=== PATIENT | male | born 1950 | race Caucasian/White ===

== ENCOUNTER 2020-09-15 16:25 | Inpatient (IN) | payer MEDICARE ==
[~2020-09-15 16:25] MED LIST: Iopamidol-370 76% 500 ML 1 ML ONE
[2020-09-15] MEDS ORDERED: Albuterol 200 PUFF (6.7GM INHALER) ONE (17:34)
[2020-09-15] MEDS ORDERED: Magnesium 2 GM/50 ML BAG (IN WATER) ONE (18:36)
--- NOTE | 2020-09-15 19:37 | RAD ---
CHEST 1 VIEW: Date: 09/15/2020 HISTORY: Chest pain. COMPARISON: None. FINDINGS: Heart size is enlarged. Perihilar and peripheral opacities throughout the lungs. AICD/pacer leads pro ject over the right atrium, right ventricle, and coronary sinus. IMPRESSION: Extensive air space opacities, which without prior examinations for review may reflect pulmonary raven a or multifocal pneumonia. POS: YENIFERH
[2020-09-15] MEDS ORDERED: Linezolid 600 MG in Premix Bag 1 BAG IVPB SCH (20:00)
[2020-09-15] MEDS ORDERED: Albuterol Sulfate 2.5 mg/3 ml Neb NEB PRN (20:32)
[2020-09-15 20:34] LABS: Base Excess-Venous 1.2 mmol/L (-2.0 to 3.0); Bicarbonate (HCO3v) 25.9 mmol/L (22.0-28.0); CO2 Tension (PvCO2) 40.9 mmHg (40.0-50.0); Calcium, Ionized 1.06 mmol/L (1.15-1.33); Chloride 100 mmol/L (98-107); Hemoglobin - Calc 13.6 g/dL (14.0-18.0); Potassium 4.2 mmol/L (3.5-5.1); Sodium 135 mmol/L (138-145); T. Carbon Dioxide 27.2 mmol/L (22.0-28.0); vO2 Saturation-calc 82.1 % (60.0-85.0)
[2020-09-15] MEDS ORDERED: Acetaminophen 325 MG TAB PO PRN (20:36)
[2020-09-15 20:45] LABS: ALT (SGPT) 31 U/L (8-55); AST (SGOT) 31 U/L (5-34); Albumin 3.5 g/dL (3.4-4.8); Alkaline Phosphatase 88 U/L (40-110); Anion Gap 13 mmol/L (10-20); BUN (Urea Nitrogen) 9 mg/dL (8.4-25.7); Bilirubin, Total 1.2 mg/dL (0.2-1.2); CK (CPK) 142 U/L (30-200); Calc. Creatinine Clearance 0 mL/min (70-130); Calcium 8.7 mg/dL (7.8-10.44); Carbon Dioxide 27 mmol/L (23-31); Chloride 98 mmol/L (98-107); Globulin 3.5 g/dL (2.4-3.5); Glucose 133 mg/dL (80-115); Potassium 4.1 mmol/L (3.5-5.1); Sodium 134 mmol/L (136-145); Troponin I 0.031 ng/mL (< 0.028)
[2020-09-15] MEDS ORDERED: Azithromycin 500 MG in Sodium Chloride 0.9% 250 ML 250 ML IVPB SCH (20:45)
[2020-09-15] MEDS ORDERED: Furosemide 40 MG/4 ML VIAL SLOW IVP SCH (20:45)
--- NOTE | 2020-09-15 20:54 | CT ---
CT ANGIO OF CHEST PERFORMED WITH INTRAVENOUS CONTRAST ENHANCEMENT WITH 3D RECONSTRUCTIONS: 09/15/20 HISTORY: Atrial fibrillation. Shortness of breath. Productive cough. There is extensive bilateral ground glass infiltrates. This has the appearance more of a multifocal p neumonia such as COVID. This would not be typical for pulmonary edema. No pleural effusions. Pulmonary arteries are fairly well opacified. No CT evidence for pulmonary embolus. Thoracic aorta is normal in caliber. Small gallstones are present. Right and left adrenal glands are normal. IMPRESSION: 1. Diffuse COVID pneumonia. 2. Small gallstones. 3. No CT evidence for pulmonary embolus. POS: BJ
[2020-09-15 22:26] LABS: Troponin I 0.089 ng/mL (< 0.028)
--- NOTE | 2020-09-15 22:29 | PDOC.BPN ---
- Brief Progress Note [id number] HP dictated
[2020-09-15 22:56] LABS: #Basophils 0.1 thou/uL (0.0-0.2); #Eosinphils 0.1 thou/uL (0.0-0.7); #Lymphocytes 0.4 thou/uL (1.20-3.40); #Monocytes 0.7 thou/uL (0.11-0.59); #Neutrophils 14.9 thou/uL (1.40-6.50); %Basophils 0.4 % (0.0-1.0); %Eosinophils 0.4 % (0.0-10.0); %Lymphocytes 2.6 % (21.0-51.0); %Monocytes 4.5 % (0.0-10.0); %Neutrophils 92.1 % (42.0-75.0); Hemoglobin 12.9 g/dL (14.0-18.0); Mean Corpuscular HGB CONC 32.7 g/dL (32.0-36.0); Mean Corpuscular Hemoglobin 29.4 pg (27.0-31.0); Mean Platelet Volume 10.3 fL (7.4-10.4); Platelet Count 182 thou/uL (130-400); RBC Distribution Width 14.9 % (11.5-14.5); Red Blood Cell (RBC) Count 4.38 mill/uL (4.70-6.10); White Blood Cell (WBC) Count 16.2 thou/uL (4.8-10.8)
[2020-09-16] MEDS ORDERED: Furosemide 40 MG/4 ML VIAL ONE (00:08)
--- NOTE | 2020-09-16 00:17 | HP ---
CHIEF COMPLAINT: Shortness of breath and chest discomfort. HISTORY OF PRESENT ILLNESS: Mr. Espinosa is a 70-year-old male with past medical history of congestive heart failure, AICD, atrial fibrillation, COPD, emphysema, hypertension, hyperlipidemia, coronary artery bypass graft surgery, cardiac ablations, PTSD, among others, presents to the emergency room with shortness of breath, cough, and persistent? pneumonia. Two weeks ago, patient developed chest discomfort and intermittently productive cough. He was prescribed Augmentin and doxycycline, which he took as presented with a brief improvement of symptoms. Yesterday, the patient returned to the outpatient clinic and was just prescribed levofloxacin. He received COVID screens at each of these visits, all of them has been negative. He states he uses 2 L/minute nasal cannula at home as needed. He presents today with chills, worsening cough and shortness of breath. Also, the patient describes subjective fever. On physical exam, patient is tachypneic, short of breath with any minimal exertion. Lab work including chest x-ray showed extensive airspace disease, which would be pulmonary edema versus multifocal pneumonia. The patient's BNP is 193. Sodium 134, potassium 4.1, BUN is 9, creatinine 0.7. Septic workup done in the ED. The patient was started on IV antibiotics. The patient is being admitted to the hospital for further management. PAST MEDICAL HISTORY: As mentioned above in the history of present illness. PAST SURGICAL HISTORY: 1. Cardiac bypass surgery. 2. Tonsillectomy. 3. Varicocele. 4. ICD. 5. Cardiac ablations. 6. Right knee surgery. PAST PSYCHIATRIC HISTORY: PTSD. SOCIAL HISTORY: Denies smoking, alcohol drinking, or drug abuse. Lives at home with family. ALLERGIES: ALLERGIC TO KEFLEX, UNCONFIRMED. CURRENT MEDICATIONS: See home medication reconciliation form for updated medications. The patient's medications include: 1. Xarelto. 2. Aspirin. REVIEW OF SYSTEMS: Review of 14 systems negative except what is mentioned in the history of present illness. PHYSICAL EXAMINATION: GENERAL: The patient is awake, alert, in moderate respiratory distress, orthopneic. VITAL SIGNS: Blood pressure is 146/69, pulse is 78, respiratory rate is 18, temperature 98.7, oxygen saturation is 96% on 4 L/minute nasal cannula. HEENT: Normocephalic, atraumatic. NECK: Supple. CHEST: Coarse bilateral breath sounds. Respirations are unlabored. HEART: S1, S2, distant heart sounds. ABDOMEN: Soft, nontender. Bowel sounds present. NEUROLOGIC: Awake, alert, oriented. No focal deficits. PSYCH: Unable to assess. EXTREMITIES: No clubbing or cyanosis. LABORATORY DATA: As mentioned above in the history of present illness. Chest x-ray as mentioned above in the history of present illness. ASSESSMENT AND PLAN: 1. Acute on chronic hypoxic respiratory failure. 2. Chronic obstructive pulmonary disease with? exacerbation. 3. Pneumonia, failed outpatient therapy? 4. Acute on chronic congestive heart failure? 5. Coronary artery disease. 6. Automatic implantable cardioverter defibrillator. PLAN: 1. Admit. 2. Tele monitor. 3. Oxygen to keep saturation more than 92%. 4. IV antibiotics. 5. Bronchodilators scheduled and as needed. 6. IV steroids. 7. We will give the patient IV Lasix tonight, reassess in a.m. Cannot rule out worsening of his underlying congestive heart failure/pulmonary edema, differential diagnosis pneumonia versus CHF exacerbation. 8. Reconcile home medications. 9. DVT prophylaxis as appropriate/continue home anticoagulation. 10. Expected length of stay, 2 midnights or more. Job ID: [id number]
[2020-09-16] MEDS: methylPREDNISolone Sod Succ 40 MG VIAL IVP SCH ×5 (00:45→22:38)
[2020-09-16] MEDS ORDERED: methylPREDNISolone Sod Succ 40 MG VIAL ONE (00:49)
[2020-09-16 00:54] LABS: Troponin I 0.099 ng/mL (< 0.028)
[2020-09-16] MEDS: Albuterol Sulfate 2.5 mg/3 ml Neb NEB SCH ×4 (01:21→10:13)
[2020-09-16] MEDS ORDERED: Albuterol Sulfate 2.5 mg/3 ml Neb ONE (01:22)
[2020-09-16] MEDS ORDERED: HYDROcodone/Acetaminophen 10/325 mg Tablet PO PRN (03:44)
[2020-09-16 03:50] VITALS: BMI 38.5
[2020-09-16 04:10] LABS: #Lymphocytes 0.4 thou/uL (1.20-3.40); #Monocytes 0.2 thou/uL (0.11-0.59); #Neutrophils 11.9 thou/uL (1.40-6.50); %Lymphocytes 3.2 % (21.0-51.0); %Monocytes 1.3 % (0.0-10.0); %Neutrophils 95.6 % (42.0-75.0); Hemoglobin 13.7 g/dL (14.0-18.0); Mean Corpuscular HGB CONC 32.6 g/dL (32.0-36.0); Mean Corpuscular Hemoglobin 29.5 pg (27.0-31.0); Mean Corpuscular Volume 90.4 fL (78.0-98.0); Mean Platelet Volume 9.7 fL (7.4-10.4); Platelet Count 191 thou/uL (130-400); RBC Distribution Width 14.8 % (11.5-14.5); Red Blood Cell (RBC) Count 4.64 mill/uL (4.70-6.10); White Blood Cell (WBC) Count 12.4 thou/uL (4.8-10.8)
[2020-09-16 04:46] LABS: Anion Gap 15 mmol/L (10-20); BUN (Urea Nitrogen) 9 mg/dL (8.4-25.7); Calc. Creatinine Clearance 155 mL/min (70-130); Calcium 9.2 mg/dL (7.8-10.44); Carbon Dioxide 24 mmol/L (23-31); Chloride 100 mmol/L (98-107); Glucose 172 mg/dL (80-115); Potassium 3.4 mmol/L (3.5-5.1); Sodium 136 mmol/L (136-145)
[2020-09-16 06:36] LABS: SARS-CoV-2 MS2 Positive; SARS-CoV-2 N Gene Negative; SARS-CoV-2 S Gene Negative; SARS-CoV-2 by NAA Not Detected (NotDetected); SARS-CoV-2 orf1ab Negative
--- NOTE | 2020-09-16 07:57 | PDOC.HOSPP ---
- Subjective Encounter Date: 09/16/20 Encounter Time: 09:00 Subjective: Patient with some SOB, controlled on increased dose of O2 at 4.5L, uses 2-3 at home coty while sleeping. Also with chronic back pain on chronic opiates, needing home meds to be resumed. - Objective Vital Signs & Weight: Vital Signs (12 hours) Temp Pulse Resp Pulse Ox 09/16/20 04:00 94 L 09/16/20 03:20 98.0 F 09/16/20 01:26 77 20 96 Weight Weight 260 lb 7 oz I&O: 09/15/20 09/16/20 09/17/20 06:59 06:59 06:59 Output Total 700 Balance -700 Result Diagrams: 09/16/20 03:46 09/16/20 03:46 Hospitalist ROS - Review of Systems Constitutional: denies: fever, chills Respiratory: reports: cough, shortness of breath Cardiovascular: denies: chest pain, palpitations Gastrointestinal: denies: nausea, vomiting, abdominal pain Musculoskeletal: reports: back pain - Medication Medications: Active Medications Generic Name Dose Route Start Last Admin Trade Name Freq PRN Reason Stop Dose Admin Hydrocodone Bitart/Acetaminophen 1 tab 09/16/20 03:44 09/16/20 04:04 Hydrocodone/Acetaminophen 10/325 Mg Tablet PO 1 tab Q6H PRN Administration Moderate to Severe Pain (6-10) Albuterol Sulfate 2.5 mg 09/15/20 22:30 09/16/20 01:26 Albuterol Sulfate 2.5 Mg/3 Ml Neb NEB 2.5 mg [id number] ELIE Administration Methylprednisolone Sodium Succinate 40 mg 09/15/20 23:59 09/16/20 06:19 Methylprednisolone Sod Succ 40 Mg Vial IVP 40 mg Q6HR ELIE Administration - Exam General Appearance: NAD, awake alert ENT: moist mucosa Heart: RRR, no murmur, no gallops, no rubs Respiratory: normal chest expansion, no tachypnea Respiratory - other findings: expiratory wheezes and some decreased air flow diffusely Gastrointestinal: soft, non-tender, non-distended, normal bowel sounds Extremities: no edema Extremities - other findings: some wrinkles to extremity skin, no evidence significant overload Psychiatric: normal affect, normal behavior, A&O x 3 Hosp A/P (1) Multifocal pneumonia Code(s): J18.9 - PNEUMONIA, UNSPECIFIED ORGANISM Status: Acute (2) Acute and chronic respiratory failure with hypoxia Code(s): J96.21 - ACUTE AND CHRONIC RESPIRATORY FAILURE WITH HYPOXIA Status: Acute (3) COPD exacerbation Code(s): J44.1 - CHRONIC OBSTRUCTIVE PULMONARY DISEASE W (ACUTE) EXACERBATION Status: Acute (4) Acute on chronic congestive heart failure Code(s): I50.9 - HEART FAILURE, UNSPECIFIED Status: Acute (5) Chronic atrial fibrillation Code(s): I48.20 - CHRONIC ATRIAL FIBRILLATION, UNSPECIFIED Status: Chronic Plan: with pacemaker, on Xarelto (6) HTN (hypertension) Code(s): I10 - ESSENTIAL (PRIMARY) HYPERTENSION Status: Chronic (7) HLD (hyperlipidemia) Code(s): E78.5 - HYPERLIPIDEMIA, UNSPECIFIED Status: Chronic (8) CAD (coronary artery disease) Code(s): I25.10 - ATHSCL HEART DISEASE OF [place] CORONARY ARTERY W/O ANG PCTRS Status: Chronic Plan: hx of [place] - Plan Patient with infiltrated on CT consistent with multifocal pneumonia similar to Covid-19, but with multiple negative tests recently. Continue antibiotics, pulmonology consultation. IV Lasix switched back to home po dose and monitor fluid status. ECHO pending. DVT proph: on Xarelto GI proph: Pepcid
[2020-09-16] MEDS ORDERED: Potassium Chloride 20 MEQ TAB PO SCH (08:00)
[2020-09-16] MEDS ORDERED: Carvedilol 6.25 MG TAB PO SCH (09:00)
[2020-09-16] MEDS ORDERED: Non-Formulary Item 1 EACH (Carvedilol [Coreg] 12.5 MG Tab) PO SCH (09:00)
[2020-09-16] MEDS ORDERED: Non-Formulary Item 1 EACH (Omeprazole [Omeprazole] 20 MG Capsule.Dr) PO SCH (09:00)
[2020-09-16] MEDS ORDERED: Non-Formulary Item 1 EACH (Budesonide/Formoterol Fumarate [Budesonide-Formoterol 160-4.5] IH SCH (09:00)
[2020-09-16] MEDS ORDERED: Enoxaparin Sodium 40 MG/0.4 ML SYRINGE SC SCH (09:00)
[2020-09-16] MEDS ORDERED: Amiodarone 200 MG TAB PO SCH (09:00)
[2020-09-16] MEDS: Atorvastatin Calcium 40 MG TAB PO SCH (10:00)
[2020-09-16] MEDS: Aspirin 81 mg Enteric Coated Tablet PO SCH (10:00)
[2020-09-16] MEDS: Famotidine 20 MG TAB PO SCH ×2 (10:02→20:03)
[2020-09-16] MEDS ORDERED: Albuterol 200 PUFF (6.7GM INHALER) INH PRN (10:13)
[2020-09-16] MEDS: tiZANidine HCl 4 MG TAB PO SCH ×3 (10:23→20:03)
[2020-09-16] MEDS: Albuterol 200 PUFF (6.7GM INHALER) INH SCH ×4 (10:31→18:51)
--- NOTE | 2020-09-16 12:29 | CON ---
DATE OF CONSULTATION: 09/16/2020 REASON FOR CONSULTATION: Pneumonia. CONSULTING PHYSICIAN: Dr. Preston. HISTORY OF PRESENT ILLNESS: The patient is a 70-year-old male who presents to the hospital with a 4-week history of increasing shortness of breath. He said he has now had 5 negative COVID tests. 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 He has a history of a cardiomyopathy and has an ICD/pacemaker in place. He has had congestive heart failure in the past, but he said this does not feel like that. He is having no orthopnea or PND, but is having severe dyspnea with exertion. He has been ruled out for COVID for this admission. PAST MEDICAL HISTORY: 1. Cardiomyopathy. 2. Coronary artery bypass grafting surgery. 3. Tonsillectomy. 4. Cardiac ablation. 5. Right knee surgery. 6. Variceal repair. PAST SURGICAL HISTORY: See above. SOCIAL HISTORY: Nonsmoker, quit back in 1990 after a 20 pack-year history. Does not consume alcohol. Does not use illicit drugs. He was exposed to secondhand smoke with his . He has 4 hypoallergenic dogs at home, but no other pets. ALLERGIES: KEFLEX. MEDICATIONS: The patient was taking; 1. Amiodarone 200 mg daily. 2. Furosemide. 3. Omeprazole. 4. Sertraline. 5. Zolpidem. 6. Xarelto. 7. Potassium chloride. 8. Lipitor. 9. Zanaflex. 10. Coreg. 11. Budesonide. 12. Entresto. REVIEW OF SYSTEMS: Remarkable for dyspnea on exertion, cough, and congestion. PHYSICAL EXAMINATION: VITAL SIGNS: Temperature 98.0, pulse 77, respirations 20, O2 saturation 94% on 4 L, and blood pressure 134/66. HEENT: Unremarkable. NECK: No adenopathy or JVD. LUNGS: Diffuse crackles on expiration. CARDIAC: S1, S2 paced. ABDOMEN: Soft, nontender, and nondistended. EXTREMITIES: No clubbing or cyanosis. Chronic stasis changes in his legs. No significant edema. LABORATORY DATA: White blood cell count 12.4, hematocrit 42, and platelet count 191. Sodium 136, potassium 3.4, chloride 100, CO2 of 24, BUN 9, creatinine 0.7, and glucose 172. His BNP level was 193. His COVID test was negative. X-ray shows diffuse bilateral infiltrates. ASSESSMENT: This is a 70-year-old presenting with prolonged pneumonia symptoms, who has been COVID negative on multiple checks. Differential diagnosis would be an atypical presentation of heart failure, some other type of pneumonia, or amiodarone lung toxicity. I think the highest priority needs to be given to the possibility of amiodarone lung toxicity. PLAN: 1. Cardiology consultation. 2. Stop amiodarone. 3. Continue steroids. 4. Continue Levaquin. 5. Can discontinue respiratory isolation given that COVID test is negative. The above encompassed 50 minutes time, of that time, greater than 50% spent with the patient and/or the patient's unit in the hospital. Job ID: [id number]
[2020-09-16] MEDS ORDERED: Furosemide 40 MG/4 ML VIAL SLOW IVP SCH (14:00)
[2020-09-16] MEDS: HYDROcodone/Acetaminophen 10/325 mg Tablet PO PRN ×2 (14:32→22:37)
--- NOTE | 2020-09-16 15:50 | CON ---
DATE OF CONSULTATION: HISTORY OF PRESENT ILLNESS: The patient is an unfortunate 70-year-old gentleman, who presents with increasing dyspnea. The patient has a long history of coronary artery disease. He has a history of an ischemic cardiomyopathy. The patient underwent coronary artery bypass graft surgery in 1990 and 2002. The patient also has placement of an AICD. The patient has a history of ventricular tachycardia and atrial fibrillation. The patient was admitted a year ago with recurrent ventricular tachycardia. He was transferred to [place]. He underwent ablation for ventricular tachycardia. The patient was on Betapace. The patient was discharged on amiodarone. The patient was in usual state of health until a few weeks ago. He had noted progressive dyspnea and has noted low-grade fever. The patient had been treated for several weeks with IV antibiotics. He presented to emergency room markedly dyspneic. PAST MEDICAL HISTORY: 1. Coronary artery bypass graft surgery. 2. Peripheral vascular disease. 3. DVT. 4. COPD. 5. PTSD. 6. Dyslipidemia. 7. Coronary artery disease. 8. Atrial fibrillation. 9. Ventricular tachycardia. PAST SURGICAL HISTORY: Coronary artery bypass graft surgery, shoulder surgery, appendectomy, knee surgery, hand surgery. SOCIAL HISTORY: Former smoker. FAMILY HISTORY: Positive family history of heart disease. ALLERGIES: KEFLEX. MEDICATIONS: See nursing list. PHYSICAL EXAMINATION: GENERAL: Obese gentleman, in no acute distress. VITAL SIGNS: Blood pressure was 134/66. NECK: Showed no jugular venous distention. LUNGS: Coarse breath sounds with crackles in both places. HEART: Regular rate and rhythm. Normal S1 and S2. ABDOMEN: Distended. EXTREMITIES: Showed trace edema. VASCULAR: Radial pulse 2+. LABORATORY DATA: White blood cell count 12.4, hemoglobin 13.7, hematocrit 42.0, and platelets are 191. Sodium is 136, potassium 3.4, chloride 100, bicarb is 24, BUN 9, creatinine 0.76, and glucose 172. Troponin 0.099. EKG electronic ventricular pacemaker. Chest x-ray bilateral pulmonary infiltrates. IMPRESSION: 1. 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 2. History of ventricular tachycardia ablation. 3. History of atrial fibrillation. 4. History of coronary artery bypass graft surgery. 5. Ischemic cardiomyopathy. 6. Chronic obstructive pulmonary disease. 7. Peripheral vascular disease. 8. Diabetes mellitus. 9. Hypertension. PLAN: This unfortunate gentleman presents for progressive dyspnea. I expect this is secondary to amiodarone. His BNP is normal. The chest X-ray is not suggestive of congestive heart failure or pneumonia. I will discontinue his amiodarone. Job ID: [id number] [facility] CENTERSiena
[2020-09-16] MEDS: Rivaroxaban 10 MG TAB PO SCH (18:42)
[2020-09-16] MEDS: Mometasone 200 MCG/Formoterol 5 MCG 120 PUFF INHALER INH SCH (18:52)
[2020-09-16] MEDS: Carvedilol 6.25 MG TAB PO SCH (20:02)
[2020-09-16] MEDS ORDERED: Zolpidem Tartrate 5 MG TAB PO SCH ×2 (21:00→23:45)
[2020-09-16] MEDS ORDERED: Sacubitril 49 MG/Valsartan 51 MG TABLET PO SCH (21:00)
[2020-09-16] MEDS ORDERED: FLU VACC QS2020-21(65YR UP)/PF 240 MCG/0.7 ML SYRINGE IM ONE (21:00)
[2020-09-16] MEDS ORDERED: Non-Formulary Item 1 EACH (Rivaroxaban [Xarelto] 20 MG Tablet) PO SCH (21:00)
[2020-09-17] MEDS ORDERED: Midodrine HCl 5 MG TAB PO SCH (03:00)
[2020-09-17] MEDS: Albuterol 200 PUFF (6.7GM INHALER) INH SCH ×3 (03:06→11:46)
[2020-09-17] MEDS: methylPREDNISolone Sod Succ 40 MG VIAL IVP SCH ×3 (06:35→17:08)
[2020-09-17] MEDS: Mometasone 200 MCG/Formoterol 5 MCG 120 PUFF INHALER INH SCH ×2 (06:56→20:40)
[2020-09-17] MEDS: Aspirin 81 mg Enteric Coated Tablet PO SCH (08:06)
[2020-09-17] MEDS: Furosemide 20 MG TAB PO SCH (08:06)
[2020-09-17] MEDS: Potassium Chloride 20 MEQ TAB PO SCH (08:06)
[2020-09-17] MEDS: Famotidine 20 MG TAB PO SCH (08:07)
[2020-09-17] MEDS: Atorvastatin Calcium 40 MG TAB PO SCH (08:07)
[2020-09-17] MEDS: Carvedilol 6.25 MG TAB PO SCH ×2 (08:07→22:08)
--- NOTE | 2020-09-17 08:07 | PDOC.HOSPP ---
- Subjective Encounter Date: 09/17/20 Encounter Time: 09:30 Subjective: Patient did ok overnight but had some coughing and desats this morning so had to be put on high flow NC oxygen. No complaints currently. - Objective Vital Signs & Weight: Vital Signs (12 hours) Temp 09/17/20 04:00 97.9 F 09/17/20 00:00 98.2 F Weight Weight 260 lb 7 oz Most Recent Monitor Data Heart Rate from ECG 64 NIBP 120/71 NIBP BP-Mean 87 Respiration from ECG 22 SpO2 91 I&O: 09/16/20 09/17/20 09/18/20 06:59 06:59 06:59 Intake Total 1850 Output Total 700 2550 Balance -700 -700 Result Diagrams: 09/16/20 03:46 09/16/20 03:46 Hospitalist ROS - Review of Systems Constitutional: denies: fever, chills Respiratory: reports: cough, shortness of breath, SOB with excertion Cardiovascular: denies: chest pain, palpitations Gastrointestinal: denies: nausea, vomiting, abdominal pain - Medication Medications: Active Medications Generic Name Dose Route Start Last Admin Trade Name Freq PRN Reason Stop Dose Admin Hydrocodone Bitart/Acetaminophen 2 tab 09/16/20 09:44 09/16/20 22:37 Hydrocodone/Acetaminophen 10/325 Mg Tablet PO 2 tab Q6H PRN Administration Moderate to Severe Pain (6-10) Albuterol Sulfate 2 puff 09/16/20 10:30 09/17/20 06:35 Albuterol 200 Puff (6.7gm Inhaler) INH 2 puff [id number] ELIE Administration Aspirin 81 mg 09/16/20 09:00 09/17/20 08:06 Aspirin 81 Mg Enteric Coated Tablet PO 81 mg DAILY ELIE Administration Atorvastatin Calcium 40 mg 09/16/20 09:00 09/16/20 10:00 Atorvastatin Calcium 40 Mg Tab PO 40 mg DAILY ELIE Administration Carvedilol 6.25 mg 09/16/20 21:00 09/16/20 20:02 Carvedilol 6.25 Mg Tab PO 6.25 mg BID ELIE Administration Famotidine 20 mg 09/16/20 09:00 09/16/20 20:03 Famotidine 20 Mg Tab PO 20 mg BID ELIE Administration Levofloxacin 750 mg/ Device 150 mls @ 100 mls/hr 09/16/20 18:00 09/16/20 17:54 IVPB 150 mls Q24HR ELIE Administration Methylprednisolone Sodium Succinate 40 mg 09/15/20 23:59 09/17/20 06:35 Methylprednisolone Sod Succ 40 Mg Vial IVP 40 mg Q6HR ELIE Administration Mometasone Furoate/Formoterol Fumar 2 puff 09/16/20 18:30 09/17/20 06:56 Mometasone 200 Mcg/Formoterol 5 Mcg 120 Puff Inhaler INH 2 puff BID-RT ELIE Administration Pantoprazole Sodium 60 mg 09/16/20 09:00 09/16/20 10:03 Pantoprazole 40 Mg Tab PO 60 mg DAILY ELIE Administration Potassium Chloride 20 meq 09/17/20 09:00 09/17/20 08:06 Potassium Chloride 20 Meq Tab PO 20 meq DAILY ELIE Administration Rivaroxaban 20 mg 09/16/20 17:00 09/16/20 18:42 Rivaroxaban 10 Mg Tab PO 20 mg 1700 ELIE Administration Sacubitril/Valsartan 0.5 tab 09/16/20 21:00 09/16/20 22:38 Sacubitril 49 Mg/Valsartan 51 Mg Tablet PO 0.5 tab BID ELIE Administration Sertraline HCl 100 mg 09/16/20 09:00 09/16/20 10:03 Sertraline Hcl 100 Mg Tab PO 100 mg DAILY ELIE Administration Sodium Chloride 10 ml 09/16/20 21:00 09/16/20 20:04 Flush - Normal Saline 10 Ml Syringe IVF 10 ml Q12HR ELIE Administration Sodium Chloride 10 ml 09/16/20 09:45 09/16/20 22:38 Flush - Normal Saline 10 Ml Syringe IVF 10 ml PRN PRN Administration Saline Flush Tizanidine HCl 4 mg 09/16/20 09:00 09/16/20 20:03 Tizanidine Hcl 4 Mg Tab PO 4 mg TID ELIE Administration - Exam General Appearance: NAD, awake alert ENT: moist mucosa Heart: RRR, no murmur, no gallops, no rubs Respiratory: normal chest expansion, no tachypnea Respiratory - other findings: bilateral dry crackles, good air movement Gastrointestinal: soft, non-tender, non-distended, normal bowel sounds Psychiatric: normal affect, normal behavior, A&O x 3 Hosp A/P (1) Amiodarone pulmonary toxicity Code(s): J98.4 - OTHER DISORDERS OF LUNG; T46.2X5A - ADVERSE EFFECT OF OTHER ANTIDYSRHYTHMIC DRUGS, INIT ENCNTR Status: Acute (2) Multifocal pneumonia Code(s): J18.9 - PNEUMONIA, UNSPECIFIED ORGANISM Status: Acute (3) Acute and chronic respiratory failure with hypoxia Code(s): J96.21 - ACUTE AND CHRONIC RESPIRATORY FAILURE WITH HYPOXIA Status: Acute (4) COPD exacerbation Code(s): J44.1 - CHRONIC OBSTRUCTIVE PULMONARY DISEASE W (ACUTE) EXACERBATION Status: Acute (5) Acute on chronic congestive heart failure Code(s): I50.9 - HEART FAILURE, UNSPECIFIED Status: Acute (6) Chronic atrial fibrillation Code(s): I48.20 - CHRONIC ATRIAL FIBRILLATION, UNSPECIFIED Status: Chronic (7) HTN (hypertension) Code(s): I10 - ESSENTIAL (PRIMARY) HYPERTENSION Status: Chronic (8) HLD (hyperlipidemia) Code(s): E78.5 - HYPERLIPIDEMIA, UNSPECIFIED Status: Chronic (9) CAD (coronary artery disease) Code(s): I25.10 - ATHSCL HEART DISEASE OF [place] CORONARY ARTERY W/O ANG PCTRS Status: Chronic - Plan Patient with infiltrated on CT consistent with multifocal pneumonia similar to Covid-19, but with multiple negative tests recently. 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 Amiodarone discontinued by Dr. Humphrey. Continue antibiotics, Dr. Horn following. IV Lasix switched back to home po dose and monitor fluid status. ECHO pending. DVT proph: on Xarelto GI proph: Pepcid
--- NOTE | 2020-09-17 08:43 | PRG ---
DATE OF SERVICE: 09/17/2020 SUBJECTIVE: Mr. Espinosa is very short of breath with any type of activities. Oxygen saturations are in the low 80s on nasal cannula oxygen. No chest pain. OBJECTIVE: VITAL SIGNS: Blood pressure 138/72. The pulse is in the 80s, but apparently his pressure dropped with the Entresto yesterday. LUNGS: There are some scattered rales. CARDIAC: Normal S1, normal S2. ABDOMEN: Soft, nontender. LABORATORY DATA: The chest x-ray showed diffuse interstitial infiltrates, probably compatible with amiodarone toxicity. ASSESSMENT: 1. Severe coronary artery disease with previous bypass surgery. 2. Recurrent ventricular arrhythmias. PLAN: 1. Amiodarone of course was stopped. 2. Monitor for recurrent dysrhythmias. 3. On steroids. 4. We will reduce Coreg dose. 5. Check defibrillator and check OptiVol status. 6. Hold Entresto today. Unfortunately, prognosis is guarded in this gentleman. Job ID: [id number]
[2020-09-17] MEDS ORDERED: Carvedilol 6.25 MG TAB PO SCH (09:00)
[2020-09-17] MEDS: tiZANidine HCl 4 MG TAB PO SCH ×3 (09:09→22:07)
[2020-09-17 10:47] LABS: SARS-CoV-2 IgG Ab Non-Reactive (NonReactive); SARS-CoV-2 IgG Index 0.02 S/CO (< 1.40)
[2020-09-17] MEDS: HYDROcodone/Acetaminophen 10/325 mg Tablet PO PRN ×2 (12:11→22:07)
[2020-09-17] MEDS: Rivaroxaban 10 MG TAB PO SCH (17:08)
[2020-09-17] MEDS: Zolpidem Tartrate 5 MG TAB PO SCH (22:07)
[2020-09-18] MEDS ORDERED: Sodium Chloride 0.9% 500 ML IV SCH (00:45)
[2020-09-18] MEDS: Benzonatate 100 MG CAP PO PRN (00:48)
[2020-09-18] MEDS: methylPREDNISolone Sod Succ 40 MG VIAL IVP SCH ×4 (00:49→17:11)
[2020-09-18 03:52] LABS: Band 10 % (5-11); Hemoglobin 12.6 g/dL (14.0-18.0); Hypochromia SLIGHT = 6-15 cells (100X) (0-5/hpf); Lymphocytes 3 % (21-51); MDiff Complete? YES; Mean Corpuscular HGB CONC 32.1 g/dL (32.0-36.0); Mean Corpuscular Volume 90.2 fL (78.0-98.0); Mean Platelet Volume 9.7 fL (7.4-10.4); Monocytes 6 % (0-10); Neutrophil 81 % (42-75); Platelet Count 192 thou/uL (130-400); Platelet Morphology Comment Appears Adequate; Red Blood Cell (RBC) Count 4.36 mill/uL (4.70-6.10); White Blood Cell (WBC) Count 20.8 thou/uL (4.8-10.8)
[2020-09-18 04:09] LABS: Anion Gap 15 mmol/L (10-20); BUN (Urea Nitrogen) 26 mg/dL (8.4-25.7); Calc. Creatinine Clearance 142 mL/min (70-130); Calcium 8.5 mg/dL (7.8-10.44); Carbon Dioxide 24 mmol/L (23-31); Chloride 102 mmol/L (98-107); Glucose 127 mg/dL (80-115); Potassium 4.7 mmol/L (3.5-5.1); Sodium 136 mmol/L (136-145)
[2020-09-18] MEDS: Mometasone 200 MCG/Formoterol 5 MCG 120 PUFF INHALER INH SCH ×2 (07:05→19:38)
--- NOTE | 2020-09-18 07:15 | CON ---
DATE OF CONSULTATION: 09/17/2020 HISTORY OF PRESENT ILLNESS: I am seeing Mr. 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 His problems are; 1. Acute respiratory failure. 2. History of ventricular tachycardia. a. Prior history of sotalol treatment, ineffective. b. Repeated VT ablation on 07/28/2019, redo ablation on 08/13/2019. c. Recurrent ventricular tachycardia episodes requiring re-initiation of amiodarone in January 2020. d. Amiodarone now discontinued. Currently, no recurrences. 3. Persistent atrial fibrillation. a. Status post PVAI in 07/2019, in sinus rhythm. 4. Chronic systolic congestive heart failure with ischemic cardiomyopathy. a. Reduced LVEF at 30% to 35% on echo in November 2018. 5. History of dual-chamber ICD, status post Bi-V upgrade on 06/19/2019 with a Medtronic RN ADMIT-D device. 6. Prior history of syncope and collapse, now without recurrence. 7. History of COPD. 8. Prior smoking. 9. History of hypertension. ALLERGIES: CEPHALEXIN. MEDICATIONS: At home included; 1. Lasix. 2. Zolpidem. 3. Sertraline. 4. Tessalon. 5. Aspirin. 6. Proventil. 7. Amiodarone 200 mg a day. 8. Omeprazole 20 mg daily. 9. Hydrocodone. 10. Tizanidine. 11. Lipitor. 12. K-Dur. 13. Xarelto. 14. Budesonide-formoterol. 15. Coreg 6.25 mg twice a day. 16. Entresto 49/51 mg half tablet twice a day. SUBJECTIVE: Mr. Espinosa was admitted with symptoms of progressive dyspnea. He had some cough and he was treated with Augmentin as an outpatient as well as doxycycline without much relief. COVID screens were repeated, being negative in ER. He was using home O2. He did develop some fevers and chills, he is short of breath with minimal exertion. Denies PND, orthopnea, or lower extremity edema. No burning urination. No abdominal discomforts or diarrhea. No constipation. No stroke- like symptoms or bleeding issues. REVIEW OF SYSTEMS: Rest of 12-point review of systems otherwise unremarkable. PAST MEDICAL HISTORY: As above. SURGICAL HISTORY: Significant for coronary artery bypass grafting surgery, tonsillectomy, varicocele, dual-chamber ICD upgrade to Bi-V ICD as above, repeated cardiac ablation including CTI ablation in July 2019, PVI ablation on 07/28/2019, and repeat VT ablations on July 28, 2019, as well as on August 13, 2019. He required amiodarone suppression despite these for recurrent ventricular arrhythmias even after the ablation. SOCIAL HISTORY: He is an ex-smoker. Denies any current smoking, EtOH, or drug abuse. He works as a campus security officer. . FAMILY HISTORY: Not contributory. PHYSICAL EXAMINATION: VITAL SIGNS: Currently blood pressure is 127/68, heart rate 73, respiratory rate is 28, and oxygen saturation is 94%, this is on high-flow oxygen. GENERAL: Reveals an alert and oriented man. Elevated BMI at 38.5. NECK: Supple. Jugular veins not distended. CHEST: Coarse without crackles. Left precordial ICD insertion site is well healed. ABDOMEN: Benign. Bowel sounds positive. EXTREMITIES: Lower extremities without edema, clubbing, or cyanosis. Pulses are adequate. NEUROLOGIC: The patient is nonfocal. MUSCULOSKELETAL: Without joint swelling or deformity. SKIN: Without rash. DATABASE: EKG is reviewed, revealing sinus rhythm, ventricular pacing at 80 beats per minute. Telemetry reveals no significant ventricular or atrial arrhythmias. Interrogation of his device reveals a Medtronic MRI compatible Bi-V ICD, battery longevity 2.7 years, lead parameters are adequate, sensing 1 mV atrial and over 20 mV right ventricular signals. Capture threshold is also adequate including LV threshold is 1.5 at 0.8 milliseconds. No atrial or ventricular arrhythmia episodes are noted. Last treated VT episode was seen in January 2020. LAB DATA: The COVID-2 PCR is negative. IgG antibody is also negative. White cell count 12.4, hemoglobin 13.7, platelet count is 191. VBG shows pH 7.4, pCO2 of 40. Sodium 136, potassium 3.4, BUN is 9, creatinine 0.76. Troponin levels 0.089 and 0.099. BNP was 100. The chest x-ray from admission reveals extensive airspace opacities, suggestive of multifocal pneumonia. CT scan from 09/15/2020, diffuse pneumonia, consider COVID, small gallstone and no pulmonary embolus. ASSESSMENT AND PLAN: 1. Mr. Espinosa is a 70-year-old man with a history of ischemic cardiomyopathy, recurrent ventricular and atrial arrhythmias. He had repeated left ventricular ablations as noted above, most recently on August 13, 2019, despite had recurrent ICD shocks after the ablation, requiring amiodarone suppression. He has done well in regard to these arrhythmias with adequate suppression of the episodes, a treated episode noted in January of this year only. He preferred continuation of this medication in the past in fear of recurrent ventricular arrhythmias. He also well suppressed from atrial fibrillation without recurrence on this drug. 2. Now, he developed pneumonitis without evidence of acute COVID infection at this point. I agree with stopping the amiodarone. There is a concern of recurrent arrhythmias after amiodarone washout. In the meantime, we will continue to follow Pulmonary recommendation regarding high-dose steroid therapy and oxygen supplementation. Once amiodarone washes out and indeed atrial or ventricular arrhythmias are recurring, if QT interval is normalizing, he maybe considered for sotalol or Mexitil therapy. For now, this is not initiated to avoid additive QT prolongation from the residual amiodarone and sotalol. Mexitil could be considered if ventricular tachycardia occurs before QT normalizes. 3. Congestive heart failure, now well compensated without evidence of fluid overload both on device and based on BNP and physical exam. 4. Biventricular ICD with adequate function, currently 98.8% ventricularly paced. Continue monitoring. Could consider extending AV delay if still narrow QRS is underlying. 5. History of atrial fibrillation, on Xarelto. We will follow up with you. Thank you again for the consult. Job ID: [id number] [facility]OSPITALSiena
[2020-09-18] MEDS: Atorvastatin Calcium 40 MG TAB PO SCH (09:23)
[2020-09-18] MEDS: Potassium Chloride 20 MEQ TAB PO SCH (09:23)
[2020-09-18] MEDS: tiZANidine HCl 4 MG TAB PO SCH ×3 (09:23→21:14)
[2020-09-18] MEDS: Furosemide 20 MG TAB PO SCH (09:23)
[2020-09-18] MEDS: Aspirin 81 mg Enteric Coated Tablet PO SCH (09:23)
[2020-09-18] MEDS: Carvedilol 6.25 MG TAB PO SCH ×2 (09:24→21:15)
[2020-09-18] MEDS: HYDROcodone/Acetaminophen 10/325 mg Tablet PO PRN ×3 (13:02→22:24)
--- NOTE | 2020-09-18 14:23 | PRG ---
DATE OF SERVICE: 09/18/2020 SUBJECTIVE: Mr. Espinosa is still quite short of breath, requiring high-flow 55 L at 50%. He is able to produce small plugs of bloody sputum after very vigorous and prolonged coughing paroxysms. These events leave him quite dyspneic with some chest soreness. He has not had any fevers or chills. PHYSICAL EXAMINATION: VITAL SIGNS: Blood pressure 127/64, heart rate 69, saturation 93% on high-flow as above. LUNGS: Reveal bilateral rales. HEART: Regular rate and rhythm. ABDOMEN: Obese. There is no organomegaly. EXTREMITIES: He has no edema. There are no cords or tenderness. LABORATORY DATA: White count today 20,800, with hemoglobin 12.6, and hematocrit of 39.3. Platelet count 192,000. He has 10% bands. Chemistries include sodium 136, potassium 4.7, chloride 102, CO2 is 24, BUN 26, creatinine 0.8. He did not have an x-ray today. I have looked at the x-ray from admission. He has a previous sternotomy. He has a pacing biventricular pacemaker via the left subclavian approach. He has extensive alveolar and interstitial consolidations in the lower lung zones, sparing only the apices. IMPRESSION: 1. Respiratory failure with bilateral radiographic findings suggestive of a wide differential diagnosis including possible amiodarone toxicity. 2. History of recurrent ventricular arrhythmias with biventricular pacing defibrillator in place. 3. History of severe multivessel coronary artery disease with previous bypass. PLAN: We will continue with current therapies including supportive oxygen and attempted diuresis. He is on empiric antibiotics. Amiodarone has been discontinued, but beyond that, there is little to offer if this represents amiodarone toxicity. He will continue with high-flow nasal oxygen and wean as tolerated. Unfortunately, this is a very challenging diagnosis, for which a little recovery is typically seen. I have talked to him about pulmonary toilet and his underlying blood-streaked sputum. Job ID: [id number]
--- NOTE | 2020-09-18 15:36 | PDOC.HOSPP ---
- Subjective Encounter Date: 09/18/20 Encounter Time: 11:30 Subjective: is on high flow O2, gets coughing paroxysms otherwise feels better eating well - Objective Vital Signs & Weight: Vital Signs (12 hours) Temp Pulse Resp BP BP Pulse Ox 09/18/20 15:00 97.9 F 64 101/58 L 09/18/20 14:05 98/48 L 09/18/20 13:30 69 24 H 96 09/18/20 11:17 97.7 F 73 18 120/64 93 L 09/18/20 09:24 123/70 09/18/20 08:20 97.7 F 93 L 09/18/20 07:05 95 17 89 L 09/18/20 03:56 97.4 F L Weight Weight 260 lb 7 oz Most Recent Monitor Data Heart Rate from ECG 65 NIBP 86/57 NIBP BP-Mean 66 Respiration from ECG 24 SpO2 94 I&O: 09/17/20 09/18/20 09/19/20 06:59 06:59 06:59 Intake Total 1850 800 Output Total 2550 500 600 Balance -700 300 -600 Result Diagrams: 09/18/20 03:10 09/18/20 03:10 Hospitalist ROS - Medication Medications: Active Medications Generic Name Dose Route Start Last Admin Trade Name Freq PRN Reason Stop Dose Admin Hydrocodone Bitart/Acetaminophen 2 tab 09/16/20 09:44 09/18/20 13:02 Hydrocodone/Acetaminophen 10/325 Mg Tablet PO 2 tab Q6H PRN Administration Moderate to Severe Pain (6-10) Albuterol/Ipratropium 3 ml 09/17/20 13:00 09/18/20 13:30 Ipratropium/Albuterol Sulfate 3 Ml Neb NEB 3 ml [id number] ELIE Administration Aspirin 81 mg 09/16/20 09:00 09/18/20 09:23 Aspirin 81 Mg Enteric Coated Tablet PO 81 mg DAILY ELIE Administration Atorvastatin Calcium 40 mg 09/16/20 09:00 09/18/20 09:23 Atorvastatin Calcium 40 Mg Tab PO 40 mg DAILY ELIE Administration Benzonatate 100 mg 09/16/20 07:52 09/18/20 00:48 Benzonatate 100 Mg Cap PO 100 mg TID PRN Administration Cough Carvedilol 6.25 mg 09/16/20 21:00 09/18/20 09:24 Carvedilol 6.25 Mg Tab PO 6.25 mg BID ELIE Administration Furosemide 20 mg 09/17/20 09:00 09/18/20 09:23 Furosemide 20 Mg Tab PO 20 mg DAILY ELIE Administration Levofloxacin 750 mg/ Device 150 mls @ 100 mls/hr 09/16/20 18:00 09/17/20 17:16 IVPB 150 mls Q24HR ELIE Administration Methylprednisolone Sodium Succinate 40 mg 09/15/20 23:59 09/18/20 11:12 Methylprednisolone Sod Succ 40 Mg Vial IVP 40 mg Q6HR ELIE Administration Mometasone Furoate/Formoterol Fumar 2 puff 09/16/20 18:30 09/18/20 07:05 Mometasone 200 Mcg/Formoterol 5 Mcg 120 Puff Inhaler INH 2 puff BID-RT ELIE Administration Pantoprazole Sodium 40 mg 09/18/20 09:00 09/18/20 09:22 Pantoprazole 40 Mg Tab PO 40 mg DAILY ELIE Administration Potassium Chloride 20 meq 09/17/20 09:00 09/18/20 09:23 Potassium Chloride 20 Meq Tab PO 20 meq DAILY ELIE Administration Rivaroxaban 20 mg 09/16/20 17:00 09/17/20 17:08 Rivaroxaban 10 Mg Tab PO 20 mg 1700 ELIE Administration Sacubitril/Valsartan 1 tab 09/18/20 09:00 09/18/20 10:09 Sacubitril 24mg/Valsartan 26mg Tab PO 1 tab BID ELIE Administration Sertraline HCl 100 mg 09/16/20 09:00 09/18/20 09:24 Sertraline Hcl 100 Mg Tab PO 100 mg DAILY ELIE Administration Sodium Chloride 10 ml 09/16/20 21:00 09/18/20 09:25 Flush - Normal Saline 10 Ml Syringe IVF 10 ml Q12HR ELIE Administration Sodium Chloride 10 ml 09/16/20 09:45 09/16/20 22:38 Flush - Normal Saline 10 Ml Syringe IVF 10 ml PRN PRN Administration Saline Flush Tizanidine HCl 4 mg 09/16/20 09:00 09/18/20 14:36 Tizanidine Hcl 4 Mg Tab PO 4 mg TID ELIE Administration Zolpidem Tartrate 10 mg 09/17/20 21:00 09/17/20 22:07 Zolpidem Tartrate 5 Mg Tab PO 10 mg HS ELIE Administration - Exam General Appearance: awake alert Eye: PERRL, anicteric sclera ENT: no oropharyngeal lesions, moist mucosa Neck: supple, no JVD Heart: RRR, no murmur Respiratory: no wheezes, rales, rhonchi Gastrointestinal: soft, non-tender, non-distended, normal bowel sounds Extremities: no cyanosis, no edema Neurological: cranial nerve grossly intact, no focal deficits Psychiatric: normal affect, A&O x 3 Hosp A/P (1) Acute and chronic respiratory failure with hypoxia Code(s): J96.21 - ACUTE AND CHRONIC RESPIRATORY FAILURE WITH HYPOXIA Status: Acute (2) Acute on chronic congestive heart failure Code(s): I50.9 - HEART FAILURE, UNSPECIFIED Status: Acute Qualifiers: Heart failure type: combined systolic and diastolic Qualified Code(s): I50.43 - Acute on chronic combined systolic (congestive) and diastolic (congestive) heart failure (3) Amiodarone pulmonary toxicity Code(s): J98.4 - OTHER DISORDERS OF LUNG; T46.2X5A - ADVERSE EFFECT OF OTHER ANTIDYSRHYTHMIC DRUGS, INIT ENCNTR Status: Suspected (4) COPD exacerbation Code(s): J44.1 - CHRONIC OBSTRUCTIVE PULMONARY DISEASE W (ACUTE) EXACERBATION Status: Acute (5) Multifocal pneumonia Code(s): J18.9 - PNEUMONIA, UNSPECIFIED ORGANISM Status: Suspected (6) CAD (coronary artery disease) Code(s): I25.10 - ATHSCL HEART DISEASE OF [place] CORONARY ARTERY W/O ANG PCTRS Status: Chronic Qualifiers: Coronary Disease-Associated Artery/Lesion type: bypass graft [place] vs. transplanted heart: [place] heart Associated angina: without angina Qualified Code(s): I25.810 - Atherosclerosis of coronary artery bypass graft(s) without angina pectoris (7) Chronic atrial fibrillation Code(s): I48.20 - CHRONIC ATRIAL FIBRILLATION, UNSPECIFIED Status: Chronic (8) HLD (hyperlipidemia) Code(s): E78.5 - HYPERLIPIDEMIA, UNSPECIFIED Status: Chronic Qualifiers: Hyperlipidemia type: unspecified Qualified Code(s): E78.5 - Hyperlipidemia, unspecified (9) HTN (hypertension) Code(s): I10 - ESSENTIAL (PRIMARY) HYPERTENSION Status: Chronic Qualifiers: Hypertension type: essential hypertension Qualified Code(s): I10 - Essential (primary) hypertension - Plan is on high flow O2, off amiodarone, on arrhythmias on telemetry continue asp, lipitor, levaquin, solumedrol, dulera, xarelto, entersto and zoloft prognosis guarded mobilize as tolerated, encourage to exercise while on bed plan is to switch him to sotalol or mexelitine after amiodarone wash out, QT normalization per .
[2020-09-18] MEDS: Rivaroxaban 10 MG TAB PO SCH (16:54)
[2020-09-18] MEDS: Zolpidem Tartrate 5 MG TAB PO SCH ×2 (21:15→22:23)
[2020-09-19] MEDS: methylPREDNISolone Sod Succ 40 MG VIAL IVP SCH ×4 (00:10→17:49)
[2020-09-19] MEDS: HYDROcodone/Acetaminophen 10/325 mg Tablet PO PRN ×3 (06:16→22:09)
[2020-09-19] MEDS: Benzonatate 100 MG CAP PO PRN ×3 (06:17→22:09)
[2020-09-19] MEDS: Mometasone 200 MCG/Formoterol 5 MCG 120 PUFF INHALER INH SCH ×2 (08:32→18:21)
[2020-09-19 09:56] LABS: Anion Gap 14 mmol/L (10-20); BUN (Urea Nitrogen) 28 mg/dL (8.4-25.7); Calc. Creatinine Clearance 131 mL/min (70-130); Calcium 8.5 mg/dL (7.8-10.44); Carbon Dioxide 26 mmol/L (23-31); Chloride 99 mmol/L (98-107); Glucose 210 mg/dL (80-115); Potassium 4.3 mmol/L (3.5-5.1); Sodium 135 mmol/L (136-145)
[2020-09-19 10:05] LABS: Hemoglobin 13.2 g/dL (14.0-18.0); Mean Corpuscular HGB CONC 32.2 g/dL (32.0-36.0); Mean Corpuscular Volume 90.1 fL (78.0-98.0); Mean Platelet Volume 10.2 fL (7.4-10.4); Platelet Count 211 thou/uL (130-400); Red Blood Cell (RBC) Count 4.56 mill/uL (4.70-6.10); White Blood Cell (WBC) Count 17.5 thou/uL (4.8-10.8)
[2020-09-19 10:33] LABS: Hypersemented Neutrophil SLIGHT; MDiff Complete? YES; Monocytes 5 % (0-10); Neutrophil 95 % (42-75); Platelet Morphology Comment Appears Adequate
[2020-09-19] MEDS: Furosemide 20 MG TAB PO SCH (10:35)
[2020-09-19] MEDS: Aspirin 81 mg Enteric Coated Tablet PO SCH (10:35)
[2020-09-19] MEDS: Carvedilol 6.25 MG TAB PO SCH ×2 (10:35→21:07)
[2020-09-19] MEDS: Atorvastatin Calcium 40 MG TAB PO SCH (10:35)
[2020-09-19] MEDS: tiZANidine HCl 4 MG TAB PO SCH ×3 (10:36→21:08)
--- NOTE | 2020-09-19 13:07 | PDOC.HOSPP ---
- Subjective Encounter Date: 09/19/20 Encounter Time: 12:30 Subjective: breathing better, no new complaints is eating well, slept well last night - Objective Vital Signs & Weight: Vital Signs (12 hours) Temp Pulse Resp BP Pulse Ox 09/19/20 11:39 97.6 F 09/19/20 10:35 131/61 09/19/20 08:31 90 22 H 96 09/19/20 08:00 96 09/19/20 07:25 98.1 F 09/19/20 04:19 97.3 F L Weight Weight 260 lb 7 oz Most Recent Monitor Data Heart Rate from ECG 63 NIBP 127/56 NIBP BP-Mean 79 Respiration from ECG 26 SpO2 94 I&O: 09/18/20 09/19/20 09/20/20 06:59 06:59 06:59 Intake Total 800 360 Output Total 500 1725 Balance 300 -1365 Result Diagrams: 09/19/20 08:58 09/19/20 08:58 Hospitalist ROS - Medication Medications: Active Medications Generic Name Dose Route Start Last Admin Trade Name Freq PRN Reason Stop Dose Admin Hydrocodone Bitart/Acetaminophen 2 tab 09/16/20 09:44 09/19/20 06:16 Hydrocodone/Acetaminophen 10/325 Mg Tablet PO 2 tab Q6H PRN Administration Moderate to Severe Pain (6-10) Albuterol/Ipratropium 3 ml 09/17/20 13:00 09/19/20 08:31 Ipratropium/Albuterol Sulfate 3 Ml Neb NEB 3 ml [id number] ELIE Administration Aspirin 81 mg 09/16/20 09:00 09/19/20 10:35 Aspirin 81 Mg Enteric Coated Tablet PO 81 mg DAILY ELIE Administration Atorvastatin Calcium 40 mg 09/16/20 09:00 09/19/20 10:35 Atorvastatin Calcium 40 Mg Tab PO 40 mg DAILY ELIE Administration Benzonatate 100 mg 09/16/20 07:52 09/19/20 06:17 Benzonatate 100 Mg Cap PO 100 mg TID PRN Administration Cough Carvedilol 6.25 mg 09/16/20 21:00 09/19/20 10:35 Carvedilol 6.25 Mg Tab PO 6.25 mg BID ELIE Administration Furosemide 20 mg 09/17/20 09:00 09/19/20 10:35 Furosemide 20 Mg Tab PO 20 mg DAILY ELIE Administration Levofloxacin 750 mg/ Device 150 mls @ 100 mls/hr 09/16/20 18:00 09/18/20 16:56 IVPB 150 mls Q24HR ELIE Administration Methylprednisolone Sodium Succinate 40 mg 09/15/20 23:59 09/19/20 12:37 Methylprednisolone Sod Succ 40 Mg Vial IVP 40 mg Q6HR ELIE Administration Mometasone Furoate/Formoterol Fumar 2 puff 09/16/20 18:30 09/19/20 08:32 Mometasone 200 Mcg/Formoterol 5 Mcg 120 Puff Inhaler INH 2 puff BID-RT ELIE Administration Pantoprazole Sodium 40 mg 09/18/20 09:00 09/19/20 10:36 Pantoprazole 40 Mg Tab PO 40 mg DAILY ELIE Administration Rivaroxaban 20 mg 09/16/20 17:00 09/18/20 16:54 Rivaroxaban 10 Mg Tab PO 20 mg 1700 ELIE Administration Sacubitril/Valsartan 1 tab 09/18/20 09:00 09/19/20 10:36 Sacubitril 24mg/Valsartan 26mg Tab PO 1 tab BID ELIE Administration Sertraline HCl 100 mg 09/16/20 09:00 09/19/20 10:36 Sertraline Hcl 100 Mg Tab PO 100 mg DAILY ELIE Administration Sodium Chloride 10 ml 09/16/20 21:00 09/19/20 10:37 Flush - Normal Saline 10 Ml Syringe IVF 10 ml Q12HR ELIE Administration Sodium Chloride 10 ml 09/16/20 09:45 09/16/20 22:38 Flush - Normal Saline 10 Ml Syringe IVF 10 ml PRN PRN Administration Saline Flush Tizanidine HCl 4 mg 09/16/20 09:00 09/19/20 10:36 Tizanidine Hcl 4 Mg Tab PO 4 mg TID ELIE Administration Zolpidem Tartrate 10 mg 09/17/20 21:00 09/18/20 22:23 Zolpidem Tartrate 5 Mg Tab PO 10 mg HS ELIE Administration - Exam General Appearance: awake alert Eye: PERRL, anicteric sclera ENT: no oropharyngeal lesions, moist mucosa Neck: supple, no JVD Heart: RRR, no murmur Respiratory: no wheezes, rales, rhonchi Gastrointestinal: soft, non-tender, non-distended, normal bowel sounds Extremities: no cyanosis, no edema Neurological: cranial nerve grossly intact, no focal deficits Psychiatric: normal affect, A&O x 3 Hosp A/P (1) Acute and chronic respiratory failure with hypoxia Code(s): J96.21 - ACUTE AND CHRONIC RESPIRATORY FAILURE WITH HYPOXIA Status: Acute (2) Acute on chronic congestive heart failure Code(s): I50.9 - HEART FAILURE, UNSPECIFIED Status: Acute Qualifiers: Heart failure type: combined systolic and diastolic Qualified Code(s): I50.43 - Acute on chronic combined systolic (congestive) and diastolic (conges tive) heart failure (3) Amiodarone pulmonary toxicity Code(s): J98.4 - OTHER DISORDERS OF LUNG; T46.2X5A - ADVERSE EFFECT OF OTHER ANTIDYSRHYTHMIC DRUGS, INIT ENCNTR Status: Suspected (4) COPD exacerbation Code(s): J44.1 - CHRONIC OBSTRUCTIVE PULMONARY DISEASE W (ACUTE) EXACERBATION Status: Acute (5) Multifocal pneumonia Code(s): J18.9 - PNEUMONIA, UNSPECIFIED ORGANISM Status: Suspected (6) CAD (coronary artery disease) Code(s): I25.10 - ATHSCL HEART DISEASE OF [place] CORONARY ARTERY W/O ANG PCTRS Status: Chronic Qualifiers: Coronary Disease-Associated Artery/Lesion type: bypass graft [place] vs. transplanted heart: [place] heart Associated angina: without angina Qualified Code(s): I25.810 - Atherosclerosis of coronary artery bypass graft(s) without angina pectoris (7) Chronic atrial fibrillation Code(s): I48.20 - CHRONIC ATRIAL FIBRILLATION, UNSPECIFIED Status: Chronic (8) HLD (hyperlipidemia) Code(s): E78.5 - HYPERLIPIDEMIA, UNSPECIFIED Status: Chronic Qualifiers: Hyperlipidemia type: unspecified Qualified Code(s): E78.5 - Hyperlipidemia, unspecified (9) HTN (hypertension) Code(s): I10 - ESSENTIAL (PRIMARY) HYPERTENSION Status: Chronic Qualifiers: Hypertension type: essential hypertension Qualified Code(s): I10 - Essential (primary) hypertension - Plan is on high flow O2, off amiodarone, no arrhythmias on telemetry continue asp, lipitor, levaquin, solumedrol, dulera, xarelto, entersto and zoloft prognosis guarded mobilize as tolerated, encourage to exercise while on bed plan is to switch him to sotalol or mexelitine after amiodarone wash out, QT normalization per . May tx to telemetry
--- NOTE | 2020-09-19 13:21 | PRG ---
DATE OF SERVICE: 09/19/2020 SUBJECTIVE: Mr. Espinosa is doing about the same. He remains on high-flow nasal cannula. He has intermittent coughing paroxysms, but no purulent sputum, fevers, or chills. PHYSICAL EXAMINATION: VITAL SIGNS: Blood pressure 127/56, heart rate 63. He is afebrile. Saturation 94% on high-flow. LUNGS: Show rhonchi, but no wheezing. HEART: Regular rate and rhythm. There is no murmur or gallop. ABDOMEN: Obese. There is no guarding. Bowel sounds are normal. LABORATORY DATA: White count 17,500, hemoglobin is 13.2 with hematocrit 41.1, and platelet count 211,000. Chemistries include sodium 135, potassium 4.3, chloride 99, CO2 is 26, BUN 28, creatinine 0.9. Blood cultures are negative. He has not had an x-ray today. 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 Whether this is all related to amiodarone toxicity or superimposed bacterial infection is unclear. I do not think that is heart failure. PLAN: We will continue current therapies. He needs to be seen by Physical therapy for ambulation and may be a candidate for skilled facility because of his ongoing high FiO2 demands. Job ID: [id number]
[2020-09-19] MEDS: Rivaroxaban 10 MG TAB PO SCH (17:48)
[2020-09-19] MEDS: Zolpidem Tartrate 5 MG TAB PO SCH (22:09)
[2020-09-20] MEDS: methylPREDNISolone Sod Succ 40 MG VIAL IVP SCH ×5 (00:23→22:59)
[2020-09-20] MEDS: HYDROcodone/Acetaminophen 10/325 mg Tablet PO PRN ×3 (04:08→22:23)
[2020-09-20 04:13] LABS: Anion Gap 11 mmol/L (10-20); BUN (Urea Nitrogen) 30 mg/dL (8.4-25.7); Calc. Creatinine Clearance 133 mL/min (70-130); Carbon Dioxide 28 mmol/L (23-31); Chloride 100 mmol/L (98-107); Glucose 140 mg/dL (80-115); Potassium 4.7 mmol/L (3.5-5.1); Sodium 134 mmol/L (136-145)
[2020-09-20] MEDS: Benzonatate 100 MG CAP PO PRN (06:14)
[2020-09-20] MEDS: Mometasone 200 MCG/Formoterol 5 MCG 120 PUFF INHALER INH SCH ×2 (08:20→19:00)
[2020-09-20] MEDS: guaiFENesin ER 600 MG TAB PO SCH ×2 (09:37→21:00)
[2020-09-20] MEDS: Carvedilol 6.25 MG TAB PO SCH ×2 (09:37→21:00)
[2020-09-20] MEDS: Aspirin 81 mg Enteric Coated Tablet PO SCH (09:37)
[2020-09-20] MEDS: Atorvastatin Calcium 40 MG TAB PO SCH (09:37)
[2020-09-20] MEDS: Furosemide 20 MG TAB PO SCH (09:37)
[2020-09-20] MEDS: tiZANidine HCl 4 MG TAB PO SCH ×3 (09:38→21:01)
--- NOTE | 2020-09-20 10:55 | PRG ---
DATE OF SERVICE: 09/20/2020 SUBJECTIVE: Mr. Espinosa is about the same as when I left him on Sunday. He continues on high-flow oxygen at about 55%. He is coughing up some purulent secretions. OBJECTIVE: VITAL SIGNS: Temperature 98.2, pulse 60, and blood pressure 127/65. HEENT: Unremarkable. NECK: No adenopathy or JVD. LUNGS: Coarse rhonchi. CARDIOVASCULAR: S1, S2, regular. ABDOMEN: Soft. EXTREMITIES: No edema. LABORATORY DATA: Sodium 134, potassium 4.7, chloride 100, CO2 of 28, BUN 30, creatinine 0.8, glucose 140. 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 PLAN: He is continuing antibiotics and steroids and we will wean his oxygen as tolerated. Job ID: [id number]
--- NOTE | 2020-09-20 14:28 | PDOC.HOSPP ---
- Subjective Encounter Date: 09/20/20 Encounter Time: 08:30 Subjective: is on high flow, has cough off and on tries to exercise on bed with high flow is eating well - Objective Vital Signs & Weight: Vital Signs (12 hours) Temp Pulse Resp BP Pulse Ox 09/20/20 13:42 74 22 H 90 L 09/20/20 11:26 97.6 F 09/20/20 09:37 129/68 09/20/20 08:20 93 L 09/20/20 08:19 76 22 H 93 L 09/20/20 08:00 93 L 09/20/20 07:44 98.2 F 09/20/20 04:00 98.6 F Weight Weight 260 lb 7 oz Most Recent Monitor Data Heart Rate from ECG 64 NIBP 153/73 NIBP BP-Mean 99 Respiration from ECG 21 SpO2 97 I&O: 09/19/20 09/20/20 09/21/20 06:59 06:59 06:59 Intake Total 360 1712 Output Total 1725 1100 Balance -1365 612 Result Diagrams: 09/19/20 08:58 09/20/20 03:37 Hospitalist ROS - Medication Medications: Active Medications Generic Name Dose Route Start Last Admin Trade Name Freq PRN Reason Stop Dose Admin Hydrocodone Bitart/Acetaminophen 2 tab 09/16/20 09:44 09/20/20 14:17 Hydrocodone/Acetaminophen 10/325 Mg Tablet PO 2 tab Q6H PRN Administration Moderate to Severe Pain (6-10) Albuterol/Ipratropium 3 ml 09/17/20 13:00 09/20/20 13:42 Ipratropium/Albuterol Sulfate 3 Ml Neb NEB 3 ml [id number] ELIE Administration Aspirin 81 mg 09/16/20 09:00 09/20/20 09:37 Aspirin 81 Mg Enteric Coated Tablet PO 81 mg DAILY ELIE Administration Atorvastatin Calcium 40 mg 09/16/20 09:00 09/20/20 09:37 Atorvastatin Calcium 40 Mg Tab PO 40 mg DAILY ELIE Administration Benzonatate 100 mg 09/16/20 07:52 09/20/20 06:14 Benzonatate 100 Mg Cap PO 100 mg TID PRN Administration Cough Carvedilol 6.25 mg 09/16/20 21:00 09/20/20 09:37 Carvedilol 6.25 Mg Tab PO 6.25 mg BID ELIE Administration Furosemide 20 mg 09/17/20 09:00 09/20/20 09:37 Furosemide 20 Mg Tab PO 20 mg DAILY ELIE Administration Guaifenesin 600 mg 09/20/20 09:00 09/20/20 09:37 Guaifenesin Er 600 Mg Tab PO 600 mg Q12HR ELIE Administration Levofloxacin 750 mg/ Device 150 mls @ 100 mls/hr 09/16/20 18:00 09/19/20 17:49 IVPB 150 mls Q24HR ELIE Administration Methylprednisolone Sodium Succinate 40 mg 09/15/20 23:59 09/20/20 12:50 Methylprednisolone Sod Succ 40 Mg Vial IVP 40 mg Q6HR ELIE Administration Mometasone Furoate/Formoterol Fumar 2 puff 09/16/20 18:30 09/20/20 08:20 Mometasone 200 Mcg/Formoterol 5 Mcg 120 Puff Inhaler INH 2 puff BID-RT ELIE Administration Pantoprazole Sodium 40 mg 09/18/20 09:00 09/20/20 09:37 Pantoprazole 40 Mg Tab PO 40 mg DAILY ELIE Administration Rivaroxaban 20 mg 09/16/20 17:00 09/19/20 17:48 Rivaroxaban 10 Mg Tab PO 20 mg 1700 ELIE Administration Sacubitril/Valsartan 1 tab 09/18/20 09:00 09/20/20 09:38 Sacubitril 24mg/Valsartan 26mg Tab PO 1 tab BID ELIE Administration Sertraline HCl 100 mg 09/16/20 09:00 09/20/20 09:38 Sertraline Hcl 100 Mg Tab PO 100 mg DAILY ELIE Administration Sodium Chloride 10 ml 09/16/20 21:00 09/20/20 09:38 Flush - Normal Saline 10 Ml Syringe IVF 10 ml Q12HR ELIE Administration Sodium Chloride 10 ml 09/16/20 09:45 09/16/20 22:38 Flush - Normal Saline 10 Ml Syringe IVF 10 ml PRN PRN Administration Saline Flush Tizanidine HCl 4 mg 09/16/20 09:00 09/20/20 14:17 Tizanidine Hcl 4 Mg Tab PO 4 mg TID ELIE Administration Zolpidem Tartrate 10 mg 09/17/20 21:00 09/19/20 22:09 Zolpidem Tartrate 5 Mg Tab PO 10 mg HS ELIE Administration - Exam General Appearance: awake alert Eye: PERRL, anicteric sclera ENT: no oropharyngeal lesions, moist mucosa Neck: supple, no JVD Heart: RRR, no murmur Respiratory: no wheezes, rales, rhonchi Gastrointestinal: soft, non-tender, non-distended, normal bowel sounds Extremities: no cyanosis, no edema Neurological: cranial nerve grossly intact, no focal deficits Psychiatric: normal affect, A&O x 3 Hosp A/P (1) Acute and chronic respiratory failure with hypoxia Code(s): J96.21 - ACUTE AND CHRONIC RESPIRATORY FAILURE WITH HYPOXIA Status: Acute (2) Acute on chronic congestive heart failure Code(s): I50.9 - HEART FAILURE, UNSPECIFIED Status: Acute Qualifiers: Heart failure type: combined systolic and diastolic Qualified Code(s): I50.43 - Acute on chronic combined systolic (congestive) and diastolic (congestive) heart failure (3) Amiodarone pulmonary toxicity Code(s): J98.4 - OTHER DISORDERS OF LUNG; T46.2X5A - ADVERSE EFFECT OF OTHER ANTIDYSRHYTHMIC DRUGS, INIT ENCNTR Status: Suspected (4) COPD exacerbation Code(s): J44.1 - CHRONIC OBSTRUCTIVE PULMONARY DISEASE W (ACUTE) EXACERBATION Status: Acute (5) Multifocal pneumonia Code(s): J18.9 - PNEUMONIA, UNSPECIFIED ORGANISM Status: Suspected (6) CAD (coronary artery disease) Code(s): I25.10 - ATHSCL HEART DISEASE OF [place] CORONARY ARTERY W/O ANG PCTRS Status: Chronic Qualifiers: Coronary Disease-Associated Artery/Lesion type: bypass graft [place] vs. transplanted heart: [place] heart Associated angina: without angina Qualified Code(s): I25.810 - Atherosclerosis of coronary artery bypass graft(s) without angina pectoris (7) Chronic atrial fibrillation Code(s): I48.20 - CHRONIC ATRIAL FIBRILLATION, UNSPECIFIED Status: Chronic (8) HLD (hyperlipidemia) Code(s): E78.5 - HYPERLIPIDEMIA, UNSPECIFIED Status: Chronic Qualifiers: Hyperlipidemia type: unspecified Qualified Code(s): E78.5 - Hyperlipidemia, unspecified (9) HTN (hypertension) Code(s): I10 - ESSENTIAL (PRIMARY) HYPERTENSION Status: Chronic Qualifiers: Hypertension type: essential hypertension Qualified Code(s): I10 - Essential (primary) hypertension - Plan is on high flow O2, off amiodarone, no arrhythmias on telemetry continue asp, lipitor, levaquin, solumedrol, dulera, xarelto, entersto and zoloft ef is 35%, will gently diuresis him to come off high flow as tolerated. prognosis guarded mobilize as tolerated, encourage to exercise while on bed plan is to switch him to sotalol or mexelitine after amiodarone wash out, QT normalization per . May tx to telemetry
[2020-09-20] MEDS: Rivaroxaban 10 MG TAB PO SCH (17:01)
--- NOTE | 2020-09-20 17:33 | PDOC.EP ---
- Subjective Date: 09/20/20 Time: 17:31 Interval History: Uneventful weekend. Continues to be on high flow oxygen and has [id number] dyspnea. - Objective Allergies/Adverse Reactions: Allergies Allergy/AdvReac Type Severity Reaction Status Date / Time cephalexin [From Keflex] Allergy Verified 09/16/20 03:35 Current Medications Acetaminophen (Acetaminophen 325 Mg Tab) 650 mg PO Q4H PRN PRN Reason: Headache/Fever/Mild Pain (1-3) Hydrocodone Bitart/Acetaminophen (Hydrocodone/Acetaminophen 10/325 Mg Tablet) 2 tab PO Q6H PRN PRN Reason: Moderate to Severe Pain (6-10) Last Admin: 09/20/20 14:17 Dose: 2 tab Documented by: Albuterol Sulfate (Albuterol 200 Puff (6.7gm Inhaler)) 2 puff INH Q2H PRN PRN Reason: SOB Albuterol/Ipratropium (Ipratropium/Albuterol Sulfate 3 Ml Neb) 3 ml NEB [id number] [facility] Last Admin: 09/20/20 13:42 Dose: 3 ml Documented by: Aspirin (Aspirin 81 Mg Enteric Coated Tablet) 81 mg PO DAILY [facility] Last Admin: 09/20/20 09:37 Dose: 81 mg Documented by: Atorvastatin Calcium (Atorvastatin Calcium 40 Mg Tab) 40 mg PO DAILY [facility] Last Admin: 09/20/20 09:37 Dose: 40 mg Documented by: Benzonatate (Benzonatate 100 Mg Cap) 100 mg PO TID PRN PRN Reason: Cough Last Admin: 09/20/20 06:14 Dose: 100 mg Documented by: Carvedilol (Carvedilol 6.25 Mg Tab) 6.25 mg PO BID [facility] Last Admin: 09/20/20 09:37 Dose: 6.25 mg Documented by: Furosemide (Furosemide 40 Mg Tab) 40 mg PO 0900,1400 [facility] Guaifenesin (Guaifenesin Er 600 Mg Tab) 600 mg PO Q12HR [facility] Last Admin: 09/20/20 09:37 Dose: 600 mg Documented by: Levofloxacin 750 mg/ Device 150 mls @ 100 mls/hr IVPB Q24HR [facility] Last Admin: 09/20/20 17:08 Dose: 150 mls Documented by: Methylprednisolone Sodium Succinate (Methylprednisolone Sod Succ 40 Mg Vial) 40 mg IVP Q6HR [facility] Last Admin: 09/20/20 17:01 Dose: 40 mg Documented by: Mometasone Furoate/Formoterol Fumar (Mometasone 200 Mcg/Formoterol 5 Mcg 120 Puff Inhaler) 2 puff INH BID-RT [facility] Last Admin: 09/20/20 08:20 Dose: 2 puff Documented by: Pantoprazole Sodium (Pantoprazole 40 Mg Tab) 40 mg PO DAILY [facility] Last Admin: 09/20/20 09:37 Dose: 40 mg Documented by: Rivaroxaban (Rivaroxaban 10 Mg Tab) 20 mg PO 1700 [facility] Last Admin: 09/20/20 17:01 Dose: 20 mg Documented by: Sacubitril/Valsartan (Sacubitril 24mg/Valsartan 26mg Tab) 1 tab PO BID [facility] Last Admin: 09/20/20 09:38 Dose: 1 tab Documented by: Sertraline HCl (Sertraline Hcl 100 Mg Tab) 100 mg PO DAILY [facility] Last Admin: 09/20/20 09:38 Dose: 100 mg Documented by: Sodium Chloride (Flush - Normal Saline 10 Ml Syringe) 10 ml IVF Q12HR [facility] Last Admin: 09/20/20 09:38 Dose: 10 ml Documented by: Sodium Chloride (Flush - Normal Saline 10 Ml Syringe) 10 ml IVF PRN PRN PRN Reason: Saline Flush Last Admin: 09/16/20 22:38 Dose: 10 ml Documented by: Tizanidine HCl (Tizanidine Hcl 4 Mg Tab) 4 mg PO TID [facility] Last Admin: 09/20/20 14:17 Dose: 4 mg Documented by: Zolpidem Tartrate (Zolpidem Tartrate 5 Mg Tab) 10 mg PO HS [facility] Last Admin: 09/19/20 22:09 Dose: 10 mg Documented by: Vital Signs & Weight: Vital Signs Temp Pulse Resp BP Pulse Ox 09/20/20 13:42 74 22 H 90 L 09/20/20 11:26 97.6 F 09/20/20 09:37 129/68 09/20/20 08:20 93 L 09/20/20 08:19 76 22 H 93 L 09/20/20 08:00 93 L 09/20/20 07:44 98.2 F Weight 260 lb 7 oz I/O: I/O 1209/20/20 09/21/20 06:59 06:59 06:59 Intake Total 360 1712 Output Total 1725 1100 Balance -1365 612 - Quality Measures CV meds: Xarelto: Yes - Physical Exam General: alert & oriented x3, appears well Neck: no JVD/HJR, no masses Cardiology: regular rate and rhythm, no murmur Lungs: clear to auscultation, normal breath sounds Neurology: grossly intact Abdomen: unremarkable, non-tender Extremities: warm Skin: groin sites stable - Labs Result Diagrams: 09/19/20 08:58 09/20/20 03:37 - EKG Interpretation EKG Method: Telemetry EKG shows: Sinus rhythm, other (V paced) - Device Device: biventricular, defibrillator Device Result: [employer] - Assessment/Plan Assessment/Plan: ASSESSMENT AND PLAN: 1. Mr. Espinosa is a 70-year-old man with a history of ischemic cardiomyopathy, recurrent ventricular and atrial arrhythmias. He had repeated left ventricular ablations as noted above, most recently on August 13, 2019, despite had recurrent ICD shocks after the ablation, requiring amiodarone suppression. Now, he developed pneumonitis without evidence of COVID infection at this point. - Amiodarone on hold. There is a concern of recurrent arrhythmias after amiodarone washout. - High dose steroid therapy as per Pulmonary recommendation and oxygen supplementation. Once amiodarone washes out and atrial or ventricular arrhythmias are recurring, if QT interval is normalizing, he maybe considered for sotalol or Mexitil therapy. For now, this is not initiated to avoid additive QT prolongation from the residual amiodarone and sotalol. Mexitil could be considered if ventricular tachycardia occurs before QT normalizes. 3. Congestive heart failure, now well compensated without evidence of fluid overload both on device and based on BNP and physical exam. 4. Biventricular ICD with adequate function, currently 98.8% ventricularly paced. Continue monitoring. Could consider extending AV delay if still narrow QRS is underlying. 5. History of atrial fibrillation, on Xarelto. 09/20/20. Stable over weekend. No new arrhythmia.
[2020-09-20] MEDS: Zolpidem Tartrate 5 MG TAB PO SCH (22:23)
[2020-09-20] MEDS: Acetaminophen/Codeine Oral Solution 120 mg/12 mg per 5 ml PO PRN (22:56)
[2020-09-21 04:12] LABS: Anion Gap 10 mmol/L (10-20); BUN (Urea Nitrogen) 25 mg/dL (8.4-25.7); Calc. Creatinine Clearance 164 mL/min (70-130); Calcium 8.1 mg/dL (7.8-10.44); Carbon Dioxide 29 mmol/L (23-31); Chloride 100 mmol/L (98-107); Glucose 131 mg/dL (80-115); Potassium 4.9 mmol/L (3.5-5.1); Sodium 134 mmol/L (136-145)
[2020-09-21] MEDS: HYDROcodone/Acetaminophen 10/325 mg Tablet PO PRN ×2 (05:30→21:57)
[2020-09-21] MEDS: methylPREDNISolone Sod Succ 40 MG VIAL IVP SCH ×4 (05:30→23:23)
[2020-09-21] MEDS: Acetaminophen/Codeine Oral Solution 120 mg/12 mg per 5 ml PO PRN (06:34)
[2020-09-21] MEDS: Atorvastatin Calcium 40 MG TAB PO SCH (09:08)
[2020-09-21] MEDS: tiZANidine HCl 4 MG TAB PO SCH ×3 (09:08→20:50)
[2020-09-21] MEDS: Aspirin 81 mg Enteric Coated Tablet PO SCH (09:09)
[2020-09-21] MEDS: guaiFENesin ER 600 MG TAB PO SCH ×2 (09:09→20:49)
[2020-09-21] MEDS: Furosemide 40 MG TAB PO SCH ×2 (09:09→14:23)
[2020-09-21] MEDS: Carvedilol 6.25 MG TAB PO SCH ×2 (09:09→21:57)
--- NOTE | 2020-09-21 09:31 | PRG ---
DATE OF SERVICE: 09/21/2020 SUBJECTIVE: The patient remains on high-flow oxygen much attempt to wean that. OBJECTIVE: VITAL SIGNS: His temperature is 97.3, pulse 75, blood pressure 113/82, his O2 saturation was in the high 90s on 54% high-flow oxygen. HEENT: Unremarkable. NECK: No adenopathy or JVD. LUNGS: Few inspiratory crackles anteriorly. CARDIAC: S1 and S2. Regular. ABDOMEN: Soft. EXTREMITIES: No edema. LABORATORY DATA: Sodium 134, potassium 4.9, chloride 100, CO2 of 29, BUN 25, creatinine 0.7, glucose 131. ASSESSMENT: 1. Amiodarone lung toxicity. 2. Cardiomyopathy with a baseline need for oxygen of about 2 L at home. RECOMMENDATIONS: 1. Today's Levaquin day #5, I would stop this after 7 days. 2. Continue the steroids and withhold the amiodarone. 3. Wean oxygen as tolerated. 4. Up in a chair as tolerated. Realistically, I think we can only hope to get his oxygen down to 3 or 4 L. He does have oxygen setup at home. Job ID: [id number]
[2020-09-21] MEDS: Mometasone 200 MCG/Formoterol 5 MCG 120 PUFF INHALER INH SCH ×2 (10:55→18:59)
[2020-09-21] MEDS: HYDROcodone/Chlorphen Polis 5 ML UDCUP PO PRN (14:22)
--- NOTE | 2020-09-21 14:23 | PDOC.HOSPP ---
- Subjective Encounter Date: 09/21/20 Encounter Time: 08:15 Subjective: is on high flow O2, no sob says his cough is better this am is trying to exercise on bed and use i.spirometry as much as possible - Objective Vital Signs & Weight: Vital Signs (12 hours) Temp Pulse Resp BP Pulse Ox 09/21/20 13:40 68 19 90 L 09/21/20 11:22 97.2 F L 09/21/20 09:09 145/70 H 09/21/20 08:00 95 09/21/20 07:42 95 09/21/20 07:40 95 09/21/20 07:36 97.6 F 09/21/20 04:14 97.3 F L 09/21/20 02:50 99 Weight Weight 260 lb 7 oz Most Recent Monitor Data Heart Rate from ECG 77 NIBP 114/49 NIBP BP-Mean 70 Respiration from ECG 22 SpO2 88 I&O: 09/20/20 09/21/20 09/22/20 06:59 06:59 06:59 Intake Total 1712 480 Output Total 1100 1750 Balance 612 -1270 Result Diagrams: 09/19/20 08:58 09/21/20 03:07 Hospitalist ROS - Medication Medications: Active Medications Generic Name Dose Route Start Last Admin Trade Name Freq PRN Reason Stop Dose Admin Hydrocodone Bitart/Acetaminophen 2 tab 09/16/20 09:44 09/21/20 05:30 Hydrocodone/Acetaminophen 10/325 Mg Tablet PO 2 tab Q6H PRN Administration Moderate to Severe Pain (6-10) Albuterol/Ipratropium 3 ml 09/17/20 13:00 09/21/20 13:40 Ipratropium/Albuterol Sulfate 3 Ml Neb NEB 3 ml [id number] ELIE Administration Aspirin 81 mg 09/16/20 09:00 09/21/20 09:09 Aspirin 81 Mg Enteric Coated Tablet PO 81 mg DAILY ELIE Administration Atorvastatin Calcium 40 mg 09/16/20 09:00 09/21/20 09:08 Atorvastatin Calcium 40 Mg Tab PO 40 mg DAILY ELIE Administration Carvedilol 6.25 mg 09/16/20 21:00 09/21/20 09:09 Carvedilol 6.25 Mg Tab PO 6.25 mg BID ELIE Administration Furosemide 40 mg 09/21/20 09:00 09/21/20 09:09 Furosemide 40 Mg Tab PO 40 mg 0900,1400 ELIE Administration Guaifenesin 600 mg 09/20/20 09:00 09/21/20 09:09 Guaifenesin Er 600 Mg Tab PO 600 mg Q12HR ELIE Administration Levofloxacin 750 mg/ Device 150 mls @ 100 mls/hr 09/16/20 18:00 09/20/20 17 :08 IVPB 150 mls Q24HR ELIE Administration Methylprednisolone Sodium Succinate 40 mg 09/15/20 23:59 09/21/20 11:50 Methylprednisolone Sod Succ 40 Mg Vial IVP 40 mg Q6HR ELIE Administration Mometasone Furoate/Formoterol Fumar 2 puff 09/16/20 18:30 09/21/20 10:55 Mometasone 200 Mcg/Formoterol 5 Mcg 120 Puff Inhaler INH Not Given BID-RT ELIE Pantoprazole Sodium 40 mg 09/18/20 09:00 09/21/20 09:08 Pantoprazole 40 Mg Tab PO 40 mg DAILY ELIE Administration Rivaroxaban 20 mg 09/16/20 17:00 09/20/20 17:01 Rivaroxaban 10 Mg Tab PO 20 mg 1700 ELIE Administration Sacubitril/Valsartan 1 tab 09/18/20 09:00 09/21/20 09:09 Sacubitril 24mg/Valsartan 26mg Tab PO 1 tab BID ELIE Administration Sertraline HCl 100 mg 09/16/20 09:00 09/21/20 09:08 Sertraline Hcl 100 Mg Tab PO 100 mg DAILY ELIE Administration Sodium Chloride 10 ml 09/16/20 21:00 09/21/20 09:09 Flush - Normal Saline 10 Ml Syringe IVF 10 ml Q12HR ELIE Administration Sodium Chloride 10 ml 09/16/20 09:45 09/16/20 22:38 Flush - Normal Saline 10 Ml Syringe IVF 10 ml PRN PRN Administration Saline Flush Tizanidine HCl 4 mg 09/16/20 09:00 09/21/20 09:08 Tizanidine Hcl 4 Mg Tab PO 4 mg TID ELIE Administration Zolpidem Tartrate 10 mg 09/17/20 21:00 09/20/20 22:23 Zolpidem Tartrate 5 Mg Tab PO 10 mg HS ELIE Administration - Exam General Appearance: awake alert Eye: PERRL, anicteric sclera ENT: no oropharyngeal lesions, moist mucosa Neck: supple, no JVD Heart: RRR, no murmur Respiratory: no wheezes, no rales, rhonchi Gastrointestinal: soft, non-tender, non-distended, normal bowel sounds Extremities: no cyanosis, no edema Neurological: cranial nerve grossly intact, no focal deficits Psychiatric: normal affect, A&O x 3 Hosp A/P (1) Acute and chronic respiratory failure with hypoxia Code(s): J96.21 - ACUTE AND CHRONIC RESPIRATORY FAILURE WITH HYPOXIA Status: Acute (2) Acute on chronic congestive heart failure Code(s): I50.9 - HEART FAILURE, UNSPECIFIED Status: Acute Qualifiers: Heart failure type: combined systolic and diastolic Qualified Code(s): I50.43 - Acute on chronic combined systolic (congestive) and diastolic (congestive) heart failure (3) Amiodarone pulmonary toxicity Code(s): J98.4 - OTHER DISORDERS OF LUNG; T46.2X5A - ADVERSE EFFECT OF OTHER ANTIDYSRHYTHMIC DRUGS, INIT ENCNTR Status: Suspected (4) COPD exacerbation Code(s): J44.1 - CHRONIC OBSTRUCTIVE PULMONARY DISEASE W (ACUTE) EXACERBATION Status: Resolved (5) Multifocal pneumonia Code(s): J18.9 - PNEUMONIA, UNSPECIFIED ORGANISM Status: Suspected (6) CAD (coronary artery disease) Code(s): I25.10 - ATHSCL HEART DISEASE OF [place] CORONARY ARTERY W/O ANG PCTRS Status: Chronic Qualifiers: Coronary Disease-Associated Artery/Lesion type: bypass graft [place] vs. transplanted heart: [place] heart Associated angina: without angina Qualified Code(s): I25.810 - Atherosclerosis of coronary artery bypass graft(s) without angina pectoris (7) Chronic atrial fibrillation Code(s): I48.20 - CHRONIC ATRIAL FIBRILLATION, UNSPECIFIED Status: Chronic (8) HLD (hyperlipidemia) Code(s): E78.5 - HYPERLIPIDEMIA, UNSPECIFIED Status: Chronic Qualifiers: Hyperlipidemia type: unspecified Qualified Code(s): E78.5 - Hyperlipidemia, unspecified (9) HTN (hypertension) Code(s): I10 - ESSENTIAL (PRIMARY) HYPERTENSION Status: Chronic Qualifiers: Hypertension type: essential hypertension Qualified Code(s): I10 - Essential (primary) hypertension - Plan is on high flow O2, off amiodarone, no arrhythmias on telemetry continue asp, lipitor, levaquin, solumedrol, dulera, xarelto, entersto and zoloft ef is 35%, will gently diuresis him to come off high flow as tolerated. prognosis guarded mobilize as tolerated, encourage to exercise while on bed plan is to switch him to sotalol or mexelitine after amiodarone wash out, QT normalization per . May tx to telemetry
--- NOTE | 2020-09-21 16:42 | PDOC.EP ---
- Subjective Date: 09/21/20 Time: 08:00 Interval History: EP follow up. Remains SOB on high flow O2. no new complaints. Expecting to work with PT today. - Review of Systems Constitutional: denies: chills, fever, malaise Respiratory: reports: cough, shortness of breath, SOB with excertion. denies: dry, hemoptysis, pleuritic pain Cardiology: denies: chest pain, edema, heart racing, light headedness, ortho pnea, paroxysmal noc. dyspnea - Objective Allergies/Adverse Reactions: Allergies Allergy/AdvReac Type Severity Reaction Status Date / Time cephalexin [From Keflex] Allergy Verified 09/16/20 03:35 Current Medications Acetaminophen (Acetaminophen 325 Mg Tab) 650 mg PO Q4H PRN PRN Reason: Headache/Fever/Mild Pain (1-3) Hydrocodone Bitart/Acetaminophen (Hydrocodone/Acetaminophen 10/325 Mg Tablet) 2 tab PO Q6H PRN PRN Reason: Moderate to Severe Pain (6-10) Last Admin: 09/21/20 05:30 Dose: 2 tab Documented by: Albuterol Sulfate (Albuterol 200 Puff (6.7gm Inhaler)) 2 puff INH Q2H PRN PRN Reason: SOB Albuterol/Ipratropium (Ipratropium/Albuterol Sulfate 3 Ml Neb) 3 ml NEB [id number] [facility] Last Admin: 09/21/20 13:40 Dose: 3 ml Documented by: Aspirin (Aspirin 81 Mg Enteric Coated Tablet) 81 mg PO DAILY [facility] Last Admin: 09/21/20 09:09 Dose: 81 mg Documented by: Atorvastatin Calcium (Atorvastatin Calcium 40 Mg Tab) 40 mg PO DAILY [facility] Last Admin: 09/21/20 09:08 Dose: 40 mg Documented by: Carvedilol (Carvedilol 6.25 Mg Tab) 6.25 mg PO BID [facility] Last Admin: 09/21/20 09:09 Dose: 6.25 mg Documented by: Chlorphenir/Hydrocodone Polistirex (Hydrocodone/Chlorphen Polis 5 Ml Udcup) 5 ml PO Q12H PRN PRN Reason: Cough Last Admin: 09/21/20 14:22 Dose: 5 ml Documented by: Furosemide (Furosemide 40 Mg Tab) 40 mg PO 0900,1400 [facility] Last Admin: 09/21/20 14:23 Dose: 40 mg Documented by: Guaifenesin (Guaifenesin Er 600 Mg Tab) 600 mg PO Q12HR [facility] Last Admin: 09/21/20 09:09 Dose: 600 mg Documented by: Levofloxacin 750 mg/ Device 150 mls @ 100 mls/hr IVPB Q24HR [facility] Last Admin: 09/20/20 17:08 Dose: 150 mls Documented by: Methylprednisolone Sodium Succinate (Methylprednisolone Sod Succ 40 Mg Vial) 40 mg IVP Q6HR [facility] Last Admin: 09/21/20 11:50 Dose: 40 mg Documented by: Mometasone Furoate/Formoterol Fumar (Mometasone 200 Mcg/Formoterol 5 Mcg 120 Puff Inhaler) 2 puff INH BID-RT [facility] Last Admin: 09/21/20 10:55 Dose: Not Given Documented by: Pantoprazole Sodium (Pantoprazole 40 Mg Tab) 40 mg PO DAILY [facility] Last Admin: 09/21/20 09:08 Dose: 40 mg Documented by: Rivaroxaban (Rivaroxaban 10 Mg Tab) 20 mg PO 1700 [facility] Last Admin: 09/20/20 17:01 Dose: 20 mg Documented by: Sacubitril/Valsartan (Sacubitril 24mg/Valsartan 26mg Tab) 1 tab PO BID [facility] Last Admin: 09/21/20 09:09 Dose: 1 tab Documented by: Sertraline HCl (Sertraline Hcl 100 Mg Tab) 100 mg PO DAILY [facility] Last Admin: 09/21/20 09:08 Dose: 100 mg Documented by: Sodium Chloride (Flush - Normal Saline 10 Ml Syringe) 10 ml IVF Q12HR [facility] Last Admin: 09/21/20 09:09 Dose: 10 ml Documented by: Sodium Chloride (Flush - Normal Saline 10 Ml Syringe) 10 ml IVF PRN PRN PRN Reason: Saline Flush Last Admin: 09/16/20 22:38 Dose: 10 ml Documented by: Tizanidine HCl (Tizanidine Hcl 4 Mg Tab) 4 mg PO TID [facility] Last Admin: 09/21/20 14:23 Dose: 4 mg Documented by: Zolpidem Tartrate (Zolpidem Tartrate 5 Mg Tab) 10 mg PO HS [facility] Last Admin: 09/20/20 22:23 Dose: 10 mg Documented by: Vital Signs & Weight: Vital Signs Temp Pulse Resp BP Pulse Ox 09/21/20 15:55 97.2 F L 09/21/20 13:40 68 19 90 L 09/21/20 11:22 97.2 F L 09/21/20 09:09 145/70 H 09/21/20 08:00 95 09/21/20 07:42 95 09/21/20 07:40 95 09/21/20 07:36 97.6 F Weight 260 lb 7 oz I/O: I/O 09/20/20 09/21/20 09/22/20 06:59 06:59 06:59 Intake Total 1712 480 Output Total 1100 1750 Balance 612 -1270 - Quality Measures CV meds: Xarelto: Yes - Physical Exam General: alert & oriented x3, appears well, no apparent distress, speech clear, affect appropriate HEENT: mucus membranes moist, normocephaly Neck: supple neck, midline trachea, no JVD/HJR, no masses, no bruit, no lymphadenopathy, no thromegaly Cardiology: regular rate and rhythm, no murmur, regular rate, regular rhythm, PMI nondisplaced Lungs: clear to auscultation, normal breath sounds, oxygen Neurology: cranial nerve 2-12 intact, grossly intact, motor function intact, sensory function intact, negative rhomberg, coordination normal, no lateralizing findings Abdomen: unremarkable, active bowel sounds, soft, non-tender, no masses, no pulsations/bruits, no hepatosplenomegaly, HJR negative Extremities: dry, strong pulses, warm - Labs Result Diagrams: 09/19/20 08:58 09/21/20 03:07 - EKG Interpretation EKG Method: Telemetry EKG shows: Sinus rhythm - Assessment/Plan Assessment/Plan: ASSESSMENT AND PLAN: 1. Mr. Espinosa is a 70-year-old man with a history of ischemic cardiomyopathy, recurrent ventricular and atrial arrhythmias. He had repeated left ventricular ablations as noted above, most recently on August 13, 2019, despite had recurrent ICD shocks after the ablation, requiring amiodarone suppression. Now, he developed pneumonitis without evidence of COVID infection at this point. - Amiodarone on hold. There is a concern of recurrent arrhythmias after amiodarone washout. - High dose steroid therapy as per Pulmonary recommendation and oxygen supplementation. Once amiodarone washes out and atrial or ventricular arrhythmias are recurring, if QT interval is normalizing, he maybe considered for sotalol or Mexitil therapy. For now, this is not initiated to avoid additive QT prolongation from the residual amiodarone and sotalol. Mexitil could be considered if ventricular tachycardia occurs before QT normalizes. 3. Congestive heart failure, now well compensated without evidence of fluid overload both on device and based on BNP and physical exam. 4. Biventricular ICD with adequate function, currently 98.8% ventricularly paced. Continue monitoring. Could consider extending AV delay if still narrow QRS is underlying. 5. History of atrial fibrillation, on Xarelto. 09/21/20. No new arrhythmias. Avoid QT prolonging agents.
[2020-09-21] MEDS: Rivaroxaban 10 MG TAB PO SCH (17:20)
[2020-09-21] MEDS: Zolpidem Tartrate 5 MG TAB PO SCH (21:58)
[2020-09-22] MEDS: HYDROcodone/Chlorphen Polis 5 ML UDCUP PO PRN (04:05)
[2020-09-22 04:25] LABS: Anion Gap 12 mmol/L (10-20); BUN (Urea Nitrogen) 27 mg/dL (8.4-25.7); Calc. Creatinine Clearance 155 mL/min (70-130); Calcium 7.9 mg/dL (7.8-10.44); Carbon Dioxide 28 mmol/L (23-31); Chloride 98 mmol/L (98-107); Glucose 139 mg/dL (80-115); Potassium 4.6 mmol/L (3.5-5.1); Sodium 133 mmol/L (136-145)
[2020-09-22] MEDS: HYDROcodone/Acetaminophen 10/325 mg Tablet PO PRN ×3 (06:03→22:48)
[2020-09-22] MEDS: methylPREDNISolone Sod Succ 40 MG VIAL IVP SCH (06:04)
[2020-09-22] MEDS: tiZANidine HCl 4 MG TAB PO SCH ×3 (08:14→22:49)
[2020-09-22] MEDS: Carvedilol 6.25 MG TAB PO SCH ×2 (08:14→20:51)
[2020-09-22] MEDS: guaiFENesin ER 600 MG TAB PO SCH ×2 (08:14→20:50)
[2020-09-22] MEDS: Furosemide 40 MG TAB PO SCH ×2 (08:14→14:23)
[2020-09-22] MEDS: Aspirin 81 mg Enteric Coated Tablet PO SCH (08:14)
[2020-09-22] MEDS: Atorvastatin Calcium 40 MG TAB PO SCH (08:14)
[2020-09-22] MEDS: Mometasone 200 MCG/Formoterol 5 MCG 120 PUFF INHALER INH SCH ×2 (08:24→19:08)
--- NOTE | 2020-09-22 09:00 | PRG ---
DATE OF SERVICE: 09/22/2020 SUBJECTIVE: Mr. Espinosa is sitting up in bed. He said he is breathing somewhat better. He is still on high-flow oxygen. OBJECTIVE: VITAL SIGNS: Blood pressure 152/73, pulse is paced, is in the low 80s. LUNGS: Clear anteriorly, posteriorly there are scattered rales throughout. No wheezing. ABDOMEN: Soft, nontender. ASSESSMENT: 1. Coronary artery disease. 2. Congestive heart failure, stable. 3. History of ventricular arrhythmias. 4. 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 PLAN: 1. Amiodarone was stopped. 2. He is on prednisone. 3. He is on medicines for congestive heart failure. No other recommendations at the present time. Job ID: [id number]
--- NOTE | 2020-09-22 09:31 | PRG ---
DATE OF SERVICE: 09/22/2020 SUBJECTIVE: The patient is getting better, had no acute complaints. OBJECTIVE: VITAL SIGNS: Temperature 97.9, pulse 63, blood pressure 150/73, O2 saturation 93% on 49% high-flow oxygen. HEENT: Unremarkable. NECK: No JVD. LUNGS: Fairly clear. CARDIAC: S1, S2. Regular. ABDOMEN: Soft. EXTREMITIES: No edema. LABORATORY DATA: Sodium 133, potassium 4.6, chloride 98, CO2 of 28, BUN 27, creatinine 0.7, glucose 139. 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 PLAN: We need to wean his oxygen down more aggressively. Tomorrow should be the last day of antibiotics. He will need to continue on steroids for quite some time, but these can be changed to pills. Job ID: [id number]
--- NOTE | 2020-09-22 09:55 | PDOC.EP ---
- Subjective Date: 09/22/20 Time: 09:53 Interval History: Sitting in bed with less SOB. Still on HF O2. Working with PT and trying to wean O2. No palpitations or ICD shocks. - Review of Systems Constitutional: reports: weakness. denies: chills, fever, malaise Respiratory: reports: shortness of breath, SOB with excertion. denies: cough, dry, hemoptysis, pleuritic pain, sputum, wheezing Cardiology: denies: chest pain, edema, heart racing, light headedness, orthopnea - Objective Allergies/Adverse Reactions: Allergies Allergy/AdvReac Type Severity Reaction Status Date / Time cephalexin [From Keflex] Allergy Verified 09/16/20 03:35 Current Medications Acetaminophen (Acetaminophen 325 Mg Tab) 650 mg PO Q4H PRN PRN Reason: Headache/Fever/Mild Pain (1-3) Last Admin: 09/21/20 17:20 Dose: 650 mg Documented by: Hydrocodone Bitart/Acetaminophen (Hydrocodone/Acetaminophen 10/325 Mg Tablet) 2 tab PO Q6H PRN PRN Reason: Moderate to Severe Pain (6-10) Last Admin: 09/22/20 06:03 Dose: 2 tab Documented by: Albuterol Sulfate (Albuterol 200 Puff (6.7gm Inhaler)) 2 puff INH Q2H PRN PRN Reason: SOB Albuterol/Ipratropium (Ipratropium/Albuterol Sulfate 3 Ml Neb) 3 ml NEB [id number] [facility] Last Admin: 09/22/20 08:24 Dose: 3 ml Documented by: Aspirin (Aspirin 81 Mg Enteric Coated Tablet) 81 mg PO DAILY [facility] Last Admin: 09/22/20 08:14 Dose: 81 mg Documented by: Atorvastatin Calcium (Atorvastatin Calcium 40 Mg Tab) 40 mg PO DAILY [facility] Last Admin: 09/22/20 08:14 Dose: 40 mg Documented by: Carvedilol (Carvedilol 6.25 Mg Tab) 6.25 mg PO BID [facility] Last Admin: 09/22/20 08:14 Dose: 6.25 mg Documented by: Chlorphenir/Hydrocodone Polistirex (Hydrocodone/Chlorphen Polis 5 Ml Udcup) 5 ml PO Q12H PRN PRN Reason: Cough Last Admin: 09/22/20 04:05 Dose: 5 ml Documented by: Furosemide (Furosemide 40 Mg Tab) 40 mg PO 0900,1400 [facility] Last Admin: 09/22/20 08:14 Dose: 40 mg Documented by: Guaifenesin (Guaifenesin Er 600 Mg Tab) 600 mg PO Q12HR [facility] Last Admin: 09/22/20 08:14 Dose: 600 mg Documented by: Levofloxacin 750 mg/ Device 150 mls @ 100 mls/hr IVPB Q24HR [facility] Last Admin: 09/21/20 17:21 Dose: 150 mls Documented by: Mometasone Furoate/Formoterol Fumar (Mometasone 200 Mcg/Formoterol 5 Mcg 120 Puff Inhaler) 2 puff INH BID-RT [facility] Last Admin: 09/22/20 08:24 Dose: 2 puff Documented by: Pantoprazole Sodium (Pantoprazole 40 Mg Tab) 40 mg PO DAILY [facility] Last Admin: 09/22/20 08:14 Dose: 40 mg Documented by: Prednisone (Prednisone 20 Mg Tab) 30 mg PO BID [facility] Rivaroxaban (Rivaroxaban 10 Mg Tab) 20 mg PO 1700 [facility] Last Admin: 09/21/20 17:20 Dose: 20 mg Documented by: Sacubitril/Valsartan (Sacubitril 24mg/Valsartan 26mg Tab) 1 tab PO BID [facility] Last Admin: 09/22/20 08:14 Dose: 1 tab Documented by: Sertraline HCl (Sertraline Hcl 100 Mg Tab) 100 mg PO DAILY [facility] Last Admin: 09/22/20 08:14 Dose: 100 mg Documented by: Sodium Chloride (Flush - Normal Saline 10 Ml Syringe) 10 ml IVF Q12HR [facility] Last Admin: 09/22/20 08:15 Dose: 10 ml Documented by: Sodium Chloride (Flush - Normal Saline 10 Ml Syringe) 10 ml IVF PRN PRN PRN Reason: Saline Flush Last Admin: 09/16/20 22:38 Dose: 10 ml Documented by: Tizanidine HCl (Tizanidine Hcl 4 Mg Tab) 4 mg PO TID [facility] Last Admin: 09/22/20 08:14 Dose: 4 mg Documented by: Zolpidem Tartrate (Zolpidem Tartrate 5 Mg Tab) 10 mg PO HS [facility] Last Admin: 09/21/20 21:58 Dose: 10 mg Documented by: Vital Signs & Weight: Vital Signs Temp Pulse Resp BP Pulse Ox 09/22/20 08:26 90 L 09/22/20 08:24 85 24 H 88 L 09/22/20 07:51 97.9 F 09/22/20 03:55 97.2 F L 09/22/20 02:21 97 09/21/20 23:54 98.3 F 09/21/20 21:57 127/53 L Weight 260 lb 7 oz I/O: I/O 09/21/20 09/22/20 09/23/20 06:59 06:59 06:59 Intake Total 480 1350 Output Total 1750 5138 Balance -4267 -846 - Quality Measures CV meds: Xarelto: Yes - Physical Exam General: alert & oriented x3, appears well, no apparent distress, speech clear, affect appropriate HEENT: mucus membranes moist, normocephaly Neck: supple neck, midline trachea, no JVD/HJR, no masses, no bruit, no lymphadenopathy, no thromegaly Cardiology: regular rate and rhythm, no murmur, regular rate, regular rhythm, PMI nondisplaced Lungs: no wheeze, rales, rhonchi, decreased breath sounds Neurology: cranial nerve 2-12 intact, grossly intact, coordination normal Abdomen: unremarkable, active bowel sounds, HJR negative - Labs Result Diagrams: 09/19/20 08:58 09/22/20 03:14 - EKG Interpretation EKG Method: Telemetry EKG shows: Sinus rhythm - Assessment/Plan Assessment/Plan: ASSESSMENT AND PLAN: 1. Mr. Espinosa is a 70-year-old man with a history of ischemic cardiomyopathy, recurrent ventricular and atrial arrhythmias. He had repeated left ventricular ablations as noted above, most recently on August 13, 2019, despite had recurr ent ICD shocks after the ablation, requiring amiodarone suppression. Now, he developed pneumonitis without evidence of COVID infection at this point. - Amiodarone on hold. There is a concern of recurrent arrhythmias after amiodarone washout. - High dose steroid therapy as per Pulmonary recommendation and oxygen supplementation. Once amiodarone washes out and atrial or ventricular arrhythmias are recurring, if QT interval is normalizing, he maybe considered for sotalol or Mexitil therapy. For now, this is not initiated to avoid additive QT prolongation from the residual amiodarone and sotalol. Mexitil could be considered if ventricular tachycardia occurs before QT normalizes. 3. Congestive heart failure, now well compensated without evidence of fluid overload both on device and based on BNP and physical exam. 4. Biventricular ICD with adequate function, currently 98.8% ventricularly paced. Continue monitoring. Could consider extending AV delay if still narrow QRS is underlying. 5. History of atrial fibrillation, on Xarelto. 09/21/20. No new arrhythmias. Avoid QT prolonging agents. If arrhythmia recurrence is seen, consider initiating Sotalol or Mexitil. Continue xarelto.
--- NOTE | 2020-09-22 13:32 | PDOC.HOSPP ---
- Subjective Encounter Date: 09/22/20 Encounter Time: 10:00 Subjective: is on high flow O2, feels better no new complaints is exercising on bed - Objective Vital Signs & Weight: Vital Signs (12 hours) Temp Pulse Resp Pulse Ox 09/22/20 12:46 76 24 H 90 L 09/22/20 11:32 90 L 09/22/20 11:20 97.0 F L 09/22/20 08:26 90 L 09/22/20 08:24 85 24 H 88 L 09/22/20 08:05 97 09/22/20 07:51 97.9 F 09/22/20 03:55 97.2 F L 09/22/20 02:21 97 Weight Weight 260 lb 7 oz Most Recent Monitor Data Heart Rate from ECG 62 NIBP 106/51 NIBP BP-Mean 69 Respiration from ECG 17 SpO2 87 I&O: 09/21/20 09/22/20 09/23/20 06:59 06:59 06:59 Intake Total 480 1350 Output Total 1750 2275 Balance -1270 -925 Result Diagrams: 09/19/20 08:58 09/22/20 03:14 Hospitalist ROS - Medication Medications: Active Medications Generic Name Dose Route Start Last Admin Trade Name Freq PRN Reason Stop Dose Admin Acetaminophen 650 mg 09/15/20 20:36 09/21/20 17:20 Acetaminophen 325 Mg Tab PO 650 mg Q4H PRN Administration Headache/Fever/Mild Pain (1-3) Hydrocodone Bitart/Acetaminophen 2 tab 09/16/20 09:44 09/22/20 06:03 Hydrocodone/Acetaminophen 10/325 Mg Tablet PO 2 tab Q6H PRN Administration Moderate to Severe Pain (6-10) Albuterol/Ipratropium 3 ml 09/17/20 13:00 09/22/20 12:46 Ipratropium/Albuterol Sulfate 3 Ml Neb NEB 3 ml [id number] [facility] Administration Aspirin 81 mg 09/16/20 09:00 09/22/20 08:14 Aspirin 81 Mg Enteric Coated Tablet PO 81 mg DAILY [facility] Administration Atorvastatin Calcium 40 mg 09/16/20 09:00 09/22/20 08:14 Atorvastatin Calcium 40 Mg Tab PO 40 mg DAILY [facility] Administration Carvedilol 6.25 mg 09/16/20 21:00 09/22/20 08:14 Carvedilol 6.25 Mg Tab PO 6.25 mg BID [facility]IE Administration Chlorphenir/Hydrocodone Polistirex 5 ml 09/21/20 11:40 09/22/20 04:05 Hydrocodone/Chlorphen Polis 5 Ml Udcup PO 5 ml Q12H PRN Administration Cough Furosemide 40 mg 09/21/20 09:00 09/22/20 08:14 Furosemide 40 Mg Tab PO 40 mg 0900,1400 [facility] Administration Guaifenesin 600 mg 09/20/20 09:00 09/22/20 08:14 Guaifenesin Er 600 Mg Tab PO 600 mg Q12HR [facility] Administration Levofloxacin 750 mg/ Device 150 mls @ 100 mls/hr 09/16/20 18:00 09/21/20 17:21 IVPB 150 mls Q24HR [facility] Administration Mometasone Furoate/Formoterol Fumar 2 puff 09/16/20 18:30 09/22/20 08:24 Mometasone 200 Mcg/Formoterol 5 Mcg 120 Puff Inhaler INH 2 puff BID-RT [facility] Administration Pantoprazole Sodium 40 mg 09/18/20 09:00 09/22/20 08:14 Pantoprazole 40 Mg Tab PO 40 mg DAILY [facility] Administration Rivaroxaban 20 mg 09/16/20 17:00 09/21/20 17:20 Rivaroxaban 10 Mg Tab PO 20 mg 1700 [facility] Administration Sacubitril/Valsartan 1 tab 09/18/20 09:00 09/22/20 08:14 Sacubitril 24mg/Valsartan 26mg Tab PO 1 tab BID [facility] Administration Sertraline HCl 100 mg 09/16/20 09:00 09/22/20 08:14 Sertraline Hcl 100 Mg Tab PO 100 mg DAILY [facility] Administration Sodium Chloride 10 ml 09/16/20 21:00 09/22/20 08:15 Flush - Normal Saline 10 Ml Syringe IVF 10 ml Q12HR [facility] Administration Sodium Chloride 10 ml 09/16/20 09:45 09/16/20 22:38 Flush - Normal Saline 10 Ml Syringe IVF 10 ml PRN PRN Administration Saline Flush Tizanidine HCl 4 mg 09/16/20 09:00 09/22/20 08:14 Tizanidine Hcl 4 Mg Tab PO 4 mg TID [facility] Administration Zolpidem Tartrate 10 mg 09/17/20 21:00 09/21/20 21:58 Zolpidem Tartrate 5 Mg Tab PO 10 mg HS [facility]IE Administration - Exam General Appearance: awake alert Eye: PERRL, anicteric sclera ENT: no oropharyngeal lesions, dry oral mucosa Neck: supple, no JVD Heart: RRR, no murmur Respiratory: no wheezes, no rales, rhonchi Gastrointestinal: soft, non-tender, non-distended, normal bowel sounds Extremities: no cyanosis, no edema Neurological: cranial nerve grossly intact, no focal deficits Psychiatric: normal affect, A&O x 3 Hosp A/P (1) Acute and chronic respiratory failure with hypoxia Code(s): J96.21 - ACUTE AND CHRONIC RESPIRATORY FAILURE WITH HYPOXIA Status: Acute (2) Acute on chronic congestive heart failure Code(s): I50.9 - HEART FAILURE, UNSPECIFIED Status: Acute Qualifiers: Heart failure type: combined systolic and diastolic Qualified Code(s): I50.43 - Acute on chronic combined systolic (congestive) and diastolic (congestive) heart failure (3) Amiodarone pulmonary toxicity Code(s): J98.4 - OTHER DISORDERS OF LUNG; T46.2X5A - ADVERSE EFFECT OF OTHER ANTIDYSRHYTHMIC DRUGS, INIT ENCNTR Status: Suspected (4) COPD exacerbation Code(s): J44.1 - CHRONIC OBSTRUCTIVE PULMONARY DISEASE W (ACUTE) EXACERBATION Status: Resolved (5) Multifocal pneumonia Code(s): J18.9 - PNEUMONIA, UNSPECIFIED ORGANISM Status: Suspected (6) CAD (coronary artery disease) Code(s): I25.10 - ATHSCL HEART DISEASE OF [place] CORONARY ARTERY W/O ANG PCTRS Status: Chronic Qualifiers: Coronary Disease-Associated Artery/Lesion type: bypass graft [place] vs. transplanted heart: [place] heart Associated angina: without angina Qualified Code(s): I25.810 - Atherosclerosis of coronary artery bypass graft(s) without angina pectoris (7) Chronic atrial fibrillation Code(s): I48.20 - CHRONIC ATRIAL FIBRILLATION, UNSPECIFIED Status: Chronic (8) HLD (hyperlipidemia) Code(s): E78.5 - HYPERLIPIDEMIA, UNSPECIFIED Status: Chronic Qualifiers: Hyperlipidemia type: unspecified Qualified Code(s): E78.5 - Hyperlipidemia, unspecified (9) HTN (hypertension) Code(s): I10 - ESSENTIAL (PRIMARY) HYPERTENSION Status: Chronic Qualifiers: Hypertension type: essential hypertension Qualified Code(s): I10 - Essential (primary) hypertension - Plan is on high flow O2, off amiodarone, no arrhythmias on telemetry continue asp, lipitor, will dc levaquin in am, steroids, dulera, xarelto, entersto and zoloft ef is 35%, gentle diuresis him to come off high flow as tolerated, will switch to oral in am. prognosis guarded mobilize as tolerated, encourage to exercise while on bed plan is to switch him to sotalol or mexelitine after amiodarone wash out, QT normalization per . May tx to telemetry
[2020-09-22] MEDS: Rivaroxaban 10 MG TAB PO SCH (17:48)
[2020-09-22] MEDS: predniSONE 20 MG TAB PO SCH (20:50)
[2020-09-22] MEDS: Zolpidem Tartrate 5 MG TAB PO SCH (22:49)
[2020-09-23] MEDS: HYDROcodone/Chlorphen Polis 5 ML UDCUP PO PRN ×2 (02:38→18:15)
[2020-09-23 04:51] LABS: Anion Gap 11 mmol/L (10-20); BUN (Urea Nitrogen) 32 mg/dL (8.4-25.7); Calc. Creatinine Clearance 150 mL/min (70-130); Calcium 7.9 mg/dL (7.8-10.44); Carbon Dioxide 30 mmol/L (23-31); Chloride 99 mmol/L (98-107); Glucose 116 mg/dL (80-115); Potassium 4.7 mmol/L (3.5-5.1); Sodium 135 mmol/L (136-145)
[2020-09-23] MEDS: Mometasone 200 MCG/Formoterol 5 MCG 120 PUFF INHALER INH SCH ×2 (06:40→19:01)
[2020-09-23] MEDS: Aspirin 81 mg Enteric Coated Tablet PO SCH (08:38)
[2020-09-23] MEDS: Atorvastatin Calcium 40 MG TAB PO SCH (08:38)
[2020-09-23] MEDS: tiZANidine HCl 4 MG TAB PO SCH ×3 (08:39→20:58)
[2020-09-23] MEDS: Carvedilol 6.25 MG TAB PO SCH ×2 (08:39→22:10)
[2020-09-23] MEDS: predniSONE 20 MG TAB PO SCH ×2 (08:39→20:58)
[2020-09-23] MEDS: Furosemide 40 MG TAB PO SCH ×2 (08:39→15:30)
[2020-09-23] MEDS: guaiFENesin ER 600 MG TAB PO SCH ×2 (08:39→21:01)
[2020-09-23] MEDS: HYDROcodone/Acetaminophen 10/325 mg Tablet PO PRN ×2 (08:43→22:10)
--- NOTE | 2020-09-23 09:52 | PRG ---
DATE OF SERVICE: 09/23/2020 SUBJECTIVE: He is about the same. I do not see any improvement or worsening overnight. OBJECTIVE: VITAL SIGNS: Temperature 98.0, pulse rate 60, blood pressure 136/67, O2 saturation 92% on 50% high-flow oxygen. HEENT: Unremarkable. NECK: No adenopathy or JVD. CHEST: crackles anteriorly. CARDIAC: S1 and S2. Regular. ABDOMEN: Soft. EXTREMITIES: No edema. LABORATORY DATA: Sodium 135, potassium 4.7, chloride 99, CO2 of 30, BUN 32, creatinine 0.7, and glucose 116. 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 PLAN: 1. Discontinue antibiotics after today's dose. 2. Continue steroids. 3. Continue oxygen and wean as tolerated. Job ID: [id number]
--- NOTE | 2020-09-23 16:17 | PDOC.HOSPP ---
- Subjective Encounter Date: 09/23/20 Encounter Time: 09:15 Subjective: no new complaints is trying to work with PT sbp around 80-110 and asymptomatic - Objective Vital Signs & Weight: Vital Signs (12 hours) Temp Pulse Pulse Pulse Resp BP BP 09/23/20 15:34 97.9 F 67 20 09/23/20 14:30 60 09/23/20 13:55 88 09/23/20 13:50 09/23/20 13:49 63 20 09/23/20 13:47 63 09/23/20 13:25 97.1 F L 62 22 H 09/23/20 12:18 97.4 F L 09/23/20 09:54 61 64 100/45 L 106/49 L 09/23/20 07:50 09/23/20 07:17 98.0 F 09/23/20 06:37 93 35 H BP Pulse Ox Pulse Ox Pulse Ox 09/23/20 15:34 108/52 L 97 09/23/20 14:30 94/56 L 09/23/20 13:55 84/51 L 09/23/20 13:50 94 L 09/23/20 13:49 09/23/20 13:47 78/41 L 09/23/20 13:25 86/47 L 98 09/23/20 12:18 09/23/20 09:54 92 L 92 L 09/23/20 07:50 92 L 09/23/20 07:17 09/23/20 06:37 97 Weight Admit Weight 260 lb 7 oz Weight 260 lb 7 oz Most Recent Monitor Data Heart Rate from ECG 70 NIBP 130/76 NIBP BP-Mean 94 Respiration from ECG 22 SpO2 95 I&O: 09/22/20 09/23/20 09/24/20 06:59 06:59 06:59 Intake Total 1350 850 400 Output Total 2271 2300 570 Balance -419 -1117 -779 Result Diagrams: 09/19/20 08:58 09/23/20 03:49 Hospitalist ROS - Medication Medications: Active Medications Generic Name Dose Route Start Last Admin Trade Name Freq PRN Reason Stop Dose Admin Acetaminophen 650 mg 09/15/20 20:36 09/21/20 17:20 Acetaminophen 325 Mg Tab PO 650 mg Q4H PRN Administration Headache/Fever/Mild Pain (1-3) Hydrocodone Bitart/Acetaminophen 2 tab 09/16/20 09:44 09/23/20 08:43 Hydrocodone/Acetaminophen 10/325 Mg Tablet PO 2 tab Q6H PRN Administration Moderate to Severe Pain (6-10) Albuterol/Ipratropium 3 ml 09/17/20 13:00 09/23/20 13:49 Ipratropium/Albuterol Sulfate 3 Ml Neb NEB 3 ml [id number] ELIE Administration Aspirin 81 mg 09/16/20 09:00 09/23/20 08:38 Aspirin 81 Mg Enteric Coated Tablet PO 81 mg DAILY ELIE Administration Atorvastatin Calcium 40 mg 09/16/20 09:00 09/23/20 08:38 Atorvastatin Calcium 40 Mg Tab PO 40 mg DAILY ELIE Administration Carvedilol 6.25 mg 09/16/20 21:00 09/23/20 08:39 Carvedilol 6.25 Mg Tab PO 6.25 mg BID ELIE Administration Chlorphenir/Hydrocodone Polistirex 5 ml 09/21/20 11:40 09/23/20 02:38 Hydrocodone/Chlorphen Polis 5 Ml Udcup PO 5 ml Q12H PRN Administration Cough Guaifenesin 600 mg 09/20/20 09:00 09/23/20 08:39 Guaifenesin Er 600 Mg Tab PO 600 mg Q12HR ELIE Administration Levofloxacin 750 mg/ Device 150 mls @ 100 mls/hr 09/16/20 18:00 09/22/20 17:48 IVPB 150 mls Q24HR ELIE Administration Mometasone Furoate/Formoterol Fumar 2 puff 09/16/20 18:30 09/23/20 06:40 Mometasone 200 Mcg/Formoterol 5 Mcg 120 Puff Inhaler INH 2 puff BID-RT ELIE Administration Pantoprazole Sodium 40 mg 09/18/20 09:00 09/23/20 08:39 Pantoprazole 40 Mg Tab PO 40 mg DAILY ELIE Administration Prednisone 30 mg 09/22/20 21:00 09/23/20 08:39 Prednisone 20 Mg Tab PO 30 mg BID ELIE Administration Rivaroxaban 20 mg 09/16/20 17:00 09/22/20 17:48 Rivaroxaban 10 Mg Tab PO 20 mg 1700 ELIE Administration Sacubitril/Valsartan 1 tab 09/18/20 09:00 09/23/20 08:39 Sacubitril 24mg/Valsartan 26mg Tab PO 1 tab BID ELIE Administration Sertraline HCl 100 mg 09/16/20 09:00 09/23/20 08:39 Sertraline Hcl 100 Mg Tab PO 100 mg DAILY ELIE Administration Sodium Chloride 10 ml 09/16/20 21:00 09/23/20 08:40 Flush - Normal Saline 10 Ml Syringe IVF 10 ml Q12HR ELIE Administration Sodium Chloride 10 ml 09/16/20 09:45 09/16/20 22:38 Flush - Normal Saline 10 Ml Syringe IVF 10 ml PRN PRN Administration Saline Flush Tizanidine HCl 4 mg 09/16/20 09:00 09/23/20 15:30 Tizanidine Hcl 4 Mg Tab PO 4 mg TID ELIE Administration Zolpidem Tartrate 10 mg 09/17/20 21:00 09/22/20 22:49 Zolpidem Tartrate 5 Mg Tab PO 10 mg HS ELIE Administration - Exam General Appearance: awake alert Eye: PERRL, anicteric sclera ENT: no oropharyngeal lesions, moist mucosa Neck: supple, no JVD Heart: RRR, no murmur Respiratory: no wheezes, rales, rhonchi Gastrointestinal: soft, non-tender, non-distended, normal bowel sounds Extremities: no cyanosis, no edema Neurological: cranial nerve grossly intact, no focal deficits Psychiatric: normal affect, A&O x 3 Hosp A/P (1) Acute and chronic respiratory failure with hypoxia Code(s): J96.21 - ACUTE AND CHRONIC RESPIRATORY FAILURE WITH HYPOXIA Status: Acute (2) Acute on chronic congestive heart failure Code(s): I50.9 - HEART FAILURE, UNSPECIFIED Status: Acute Qualifiers: Heart failure type: combined systolic and diastolic Qualified Code(s): I50.43 - Acute on chronic combined systolic (congestive) and diastolic (congestive) heart failure (3) Amiodarone pulmonary toxicity Code(s): J98.4 - OTHER DISORDERS OF LUNG; T46.2X5A - ADVERSE EFFECT OF OTHER ANTIDYSRHYTHMIC DRUGS, INIT ENCNTR Status: Suspected (4) COPD exacerbation Code(s): J44.1 - CHRONIC OBSTRUCTIVE PULMONARY DISEASE W (ACUTE) EXACERBATION Status: Resolved (5) Multifocal pneumonia Code(s): J18.9 - PNEUMONIA, UNSPECIFIED ORGANISM Status: Suspected (6) CAD (coronary artery disease) Code(s): I25.10 - ATHSCL HEART DISEASE OF [place] CORONARY ARTERY W/O ANG PCTRS Status: Chronic Qualifiers: Coronary Disease-Associated Artery/Lesion type: bypass graft [place] vs. transplanted heart: [place] heart Associated angina: without angina Qualified Code(s): I25.810 - Atherosclerosis of coronary artery bypass graft(s) without angina pectoris (7) Chronic atrial fibrillation Code(s): I48.20 - CHRONIC ATRIAL FIBRILLATION, UNSPECIFIED Status: Chronic (8) HLD (hyperlipidemia) Code(s): E78.5 - HYPERLIPIDEMIA, UNSPECIFIED Status: Chronic Qualifiers: Hyperlipidemia type: unspecified Qualified Code(s): E78.5 - Hyperlipidemia, unspecified (9) HTN (hypertension) Code(s): I10 - ESSENTIAL (PRIMARY) HYPERTENSION Status: Chronic Qualifiers: Hypertension type: essential hypertension Qualified Code(s): I10 - Essenti al (primary) hypertension - Plan is on high flow O2, off amiodarone, no arrhythmias on telemetry continue asp, lipitor, will dc levaquin in am, steroids, dulera, xarelto, entersto and zoloft ef is 35%, oral lasix. prognosis guarded mobilize as tolerated, encourage to exercise while on bed plan is to switch him to sotalol or mexelitine after amiodarone wash out, QT nor malization per . February tx to telemetry
--- NOTE | 2020-09-23 16:41 | PDOC.EP ---
- Subjective Date: 09/23/20 Time: 08:00 Interval History: no new cardiac events overnight. - Review of Systems Constitutional: reports: weakness. denies: chills, fever, malaise Respiratory: reports: shortness of breath. denies: cough, dry, wheezing Cardiology: denies: chest pain, edema, heart racing, light headedness, palpitations Gastrointestinal: denies: abdominal pain, constipation, diarrhea - Objective Allergies/Adverse Reactions: Allergies Allergy/AdvReac Type Severity Reaction Status Date / Time cephalexin [From Keflex] Allergy Verified 09/16/20 03:35 Current Medications Acetaminophen (Acetaminophen 325 Mg Tab) 650 mg PO Q4H PRN PRN Reason: Headache/Fever/Mild Pain (1-3) Last Admin: 09/21/20 17:20 Dose: 650 mg Documented by: Hydrocodone Bitart/Acetaminophen (Hydrocodone/Acetaminophen 10/325 Mg Tablet) 2 tab PO Q6H PRN PRN Reason: Moderate to Severe Pain (6-10) Last Admin: 09/23/20 08:43 Dose: 2 tab Documented by: Albuterol Sulfate (Albuterol 200 Puff (6.7gm Inhaler)) 2 puff INH Q2H PRN PRN Reason: SOB Albuterol/Ipratropium (Ipratropium/Albuterol Sulfate 3 Ml Neb) 3 ml NEB [id number] [facility] Last Admin: 09/23/20 13:49 Dose: 3 ml Documented by: Aspirin (Aspirin 81 Mg Enteric Coated Tablet) 81 mg PO DAILY [facility] Last Admin: 09/23/20 08:38 Dose: 81 mg Documented by: Atorvastatin Calcium (Atorvastatin Calcium 40 Mg Tab) 40 mg PO DAILY [facility] Last Admin: 09/23/20 08:38 Dose: 40 mg Documented by: Carvedilol (Carvedilol 6.25 Mg Tab) 6.25 mg PO BID [facility] Last Admin: 09/23/20 08:39 Dose: 6.25 mg Documented by: Chlorphenir/Hydrocodone Polistirex (Hydrocodone/Chlorphen Polis 5 Ml Udcup) 5 ml PO Q12H PRN PRN Reason: Cough Last Admin: 09/23/20 02:38 Dose: 5 ml Documented by: Furosemide (Furosemide 40 Mg Tab) 40 mg PO DAILY-AC [facility] Guaifenesin (Guaifenesin Er 600 Mg Tab) 600 mg PO Q12HR [facility] Last Admin: 09/23/20 08:39 Dose: 600 mg Documented by: Levofloxacin 750 mg/ Device 150 mls @ 100 mls/hr IVPB Q24HR [facility] Last Admin: 09/22/20 17:48 Dose: 150 mls Documented by: Mometasone Furoate/Formoterol Fumar (Mometasone 200 Mcg/Formoterol 5 Mcg 120 Puff Inhaler) 2 puff INH BID-RT [facility] Last Admin: 09/23/20 06:40 Dose: 2 puff Documented by: Pantoprazole Sodium (Pantoprazole 40 Mg Tab) 40 mg PO DAILY [facility] Last Admin: 09/23/20 08:39 Dose: 40 mg Documented by: Prednisone (Prednisone 20 Mg Tab) 30 mg PO BID [facility] Last Admin: 09/23/20 08:39 Dose: 30 mg Documented by: Rivaroxaban (Rivaroxaban 10 Mg Tab) 20 mg PO 1700 [facility] Last Admin: 09/22/20 17:48 Dose: 20 mg Documented by: Sacubitril/Valsartan (Sacubitril 24mg/Valsartan 26mg Tab) 1 tab PO BID [facility] Last Admin: 09/23/20 08:39 Dose: 1 tab Documented by: Sertraline HCl (Sertraline Hcl 100 Mg Tab) 100 mg PO DAILY [facility] Last Admin: 09/23/20 08:39 Dose: 100 mg Documented by: Sodium Chloride (Flush - Normal Saline 10 Ml Syringe) 10 ml IVF Q12HR [facility] Last Admin: 09/23/20 08:40 Dose: 10 ml Documented by: Sodium Chloride (Flush - Normal Saline 10 Ml Syringe) 10 ml IVF PRN PRN PRN Reason: Saline Flush Last Admin: 09/16/20 22:38 Dose: 10 ml Documented by: Tizanidine HCl (Tizanidine Hcl 4 Mg Tab) 4 mg PO TID [facility] Last Admin: 09/23/20 15:30 Dose: 4 mg Documented by: Zolpidem Tartrate (Zolpidem Tartrate 5 Mg Tab) 10 mg PO HS [facility] Last Admin: 09/22/20 22:49 Dose: 10 mg Documented by: Vital Signs & Weight: Vital Signs Temp Pulse Pulse Pulse Resp BP BP 09/23/20 15:34 97.9 F 67 20 09/23/20 14:30 60 09/23/20 13:55 88 09/23/20 13:50 09/23/20 13:49 63 20 09/23/20 13:47 63 09/23/20 13:25 97.1 F L 62 22 H 09/23/20 12:18 97.4 F L 09/23/20 09:54 61 64 100/45 L 106/49 L 09/23/20 07:50 09/23/20 07:17 98.0 F 09/23/20 06:37 93 35 H BP Pulse Ox Pulse Ox Pulse Ox 09/23/20 15:34 108/52 L 97 09/23/20 14:30 94/56 L 09/23/20 13:55 84/51 L 09/23/20 13:50 94 L 09/23/20 13:49 09/23/20 13:47 78/41 L 09/23/20 13:25 86/47 L 98 09/23/20 12:18 09/23/20 09:54 92 L 92 L 09/23/20 07:50 92 L 09/23/20 07:17 09/23/20 06:37 97 Admit Weight 260 lb 7 oz Weight 260 lb 7 oz I/O: I/O 09/22/20 09/23/20 09/24/20 06:59 06:59 06:59 Intake Total 1350 850 400 Output Total 2275 2300 575 Balance -019 -3834 -175 - Quality Measures Condition: Atrial Fibrillation/Flutter (hx or current) CV meds: Xarelto: Yes - Physical Exam General: alert & oriented x3, appears well, speech clear HEENT: mucus membranes moist, normocephaly, EOMI Neck: supple neck, midline trachea, no lymphadenopathy Cardiology: regular rate and rhythm, no murmur, PMI nondisplaced Lungs: no wheeze, rales, rhonchi, decreased breath sounds Neurology: cranial nerve 2-12 intact, grossly intact, no lateralizing findings Abdomen: unremarkable, active bowel sounds, no pulsations/bruits - Labs Result Diagrams: 09/19/20 08:58 09/24/20 04:18 - EKG Interpretation EKG Method: Telemetry EKG shows: Sinus rhythm - Assessment/Plan Assessment/Plan: ASSESSMENT AND PLAN: 1. Mr. Espinosa is a 70-year-old man with a history of ischemic cardiomyopathy, recurrent ventricular and atrial arrhythmias. He had repeated left ventricular ablations as noted above, most recently on August 13, 2019, despite had recurrent ICD shocks after the ablation, requiring amiodarone suppression. Now, he developed pneumonitis without evidence of COVID infection at this point. - Amiodarone on hold. There is a concern of recurrent arrhythmias after am iodarone washout. - High dose steroid therapy as per Pulmonary recommendation and oxygen supplemen tation. Once amiodarone washes out and atrial or ventricular arrhythmias are recurring, if QT interval is normalizing, he maybe considered for sotalol or Mexitil therapy. For now, this is not initiated to avoid additive QT prolongation from the residual amiodarone and sotalol. Mexitil could be considered if ventricular tachycardia occurs before QT normalizes. 3. Congestive heart failure, now well compensated without evidence of fluid overload both on device and based on BNP and physical exam. 4. Biventricular ICD with adequate function, currently 98.8% ventricularly paced. Continue monitoring. Could consider extending AV delay if still narrow QRS is underlying. 5. History of atrial fibrillation, on Xarelto. 09/22/20. No new arrhythmia events overnight. Avoid QT prolonging agents. If arrhythmia recurrence is seen, consider initiating Sotalol or Mexitil. Continue xarelto. 09/23/20. Remains stable on steroids, High flow O2. No changes in cardiac condition.
[2020-09-23] MEDS: Rivaroxaban 10 MG TAB PO SCH (17:19)
[2020-09-23] MEDS: Zolpidem Tartrate 5 MG TAB PO SCH (22:10)
[2020-09-24] MEDS: HYDROcodone/Acetaminophen 10/325 mg Tablet PO PRN ×3 (04:16→21:28)
[2020-09-24 05:06] LABS: Anion Gap 11 mmol/L (10-20); BUN (Urea Nitrogen) 29 mg/dL (8.4-25.7); Calc. Creatinine Clearance 149 mL/min (70-130); Calcium 7.7 mg/dL (7.8-10.44); Carbon Dioxide 31 mmol/L (23-31); Chloride 99 mmol/L (98-107); Glucose 119 mg/dL (80-115); Potassium 4.8 mmol/L (3.5-5.1); Sodium 136 mmol/L (136-145)
[2020-09-24] MEDS: Mometasone 200 MCG/Formoterol 5 MCG 120 PUFF INHALER INH SCH ×2 (08:22→19:05)
--- NOTE | 2020-09-24 08:36 | PRG ---
DATE OF SERVICE: 09/24/2020 SUBJECTIVE: Mr. Espinosa states he is breathing a little easier. He is receiving inhaled bronchodilators. OBJECTIVE: VITAL SIGNS: Blood pressure 107/53, pulse 70. LUNGS: There is no wheezing. CARDIAC: Normal S1 and S2. ABDOMEN: Soft, nontender. EXTREMITIES: There is no significant edema. ASSESSMENT: 1. Stable cardiac status. 2. Pulmonary problems gradually improving. Dr. Sorto will be available this weekend if needed. Job ID: [id number]
[2020-09-24] MEDS: Furosemide 40 MG TAB PO SCH (08:46)
[2020-09-24] MEDS: Aspirin 81 mg Enteric Coated Tablet PO SCH (08:46)
[2020-09-24] MEDS: Atorvastatin Calcium 40 MG TAB PO SCH (08:47)
[2020-09-24] MEDS: guaiFENesin ER 600 MG TAB PO SCH ×2 (08:47→21:29)
[2020-09-24] MEDS: predniSONE 20 MG TAB PO SCH ×2 (08:47→21:29)
[2020-09-24] MEDS: Carvedilol 6.25 MG TAB PO SCH ×2 (08:47→21:29)
[2020-09-24] MEDS: tiZANidine HCl 4 MG TAB PO SCH ×3 (08:48→21:28)
--- NOTE | 2020-09-24 11:50 | PRG ---
DATE OF SERVICE: 09/24/2020 SUBJECTIVE: The patient has no acute complaints. He is about the same. OBJECTIVE: VITAL SIGNS: His O2 sats 94% on high-flow oxygen 50%. Temperature 97.6, respirations 20, blood pressure 100/50. HEENT: Unremarkable. NECK: No JVD. CHEST: Inspiratory crackles bilaterally. CARDIAC: S1, S2. Regular. ABDOMEN: Soft. EXTREMITIES: No edema. 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 PLAN: His antibiotics have been stopped. He is continuing on steroids. We are just basically waiting for his O2 sats to get better. Job ID: [id number]
--- NOTE | 2020-09-24 13:25 | PDOC.HOSPP ---
- Subjective Encounter Date: 09/24/20 Encounter Time: 11:20 Subjective: is on high flow O2, no chest pain or palp is eating well, has stood up with PT so far tries to exercise on bed, i.spirometry goes upto a liter now - Objective Vital Signs & Weight: Vital Signs (12 hours) Temp Pulse Resp BP BP Pulse Ox 09/24/20 11:15 97.6 F 68 20 100/55 L 94 L 09/24/20 08:47 98/62 09/24/20 08:22 100 22 H 93 L 09/24/20 07:45 94 L 09/24/20 07:39 97.3 F L 69 20 107/53 L 94 L 09/24/20 03:44 97.5 F L 60 17 128/60 96 Weight Admit Weight 260 lb 7 oz Weight 253 lb 6.4 oz Most Recent Monitor Data Heart Rate from ECG 70 NIBP 130/76 NIBP BP-Mean 94 Respiration from ECG 22 SpO2 95 I&O: 09/23/20 09/24/20 09/25/20 06:59 06:59 06:59 Intake Total 850 860 240 Output Total 2300 2045 450 Balance -1450 -1185 -210 Result Diagrams: 09/19/20 08:58 09/24/20 04:18 Hospitalist ROS - Medication Medications: Active Medications Generic Name Dose Route Start Last Admin Trade Name Freq PRN Reason Stop Dose Admin Acetaminophen 650 mg 09/15/20 20:36 09/21/20 17:20 Acetaminophen 325 Mg Tab PO 650 mg Q4H PRN Administration Headache/Fever/Mild Pain (1-3) Hydrocodone Bitart/Acetaminophen 2 tab 09/16/20 09:44 09/24/20 04:16 Hydrocodone/Acetaminophen 10/325 Mg Tablet PO 2 tab Q6H PRN Administration Moderate to Severe Pain (6-10) Albuterol/Ipratropium 3 ml 09/17/20 13:00 09/24/20 08:22 Ipratropium/Albuterol Sulfate 3 Ml Neb NEB 3 ml [id number] ELIE Administration Aspirin 81 mg 09/16/20 09:00 09/24/20 08:46 Aspirin 81 Mg Enteric Coated Tablet PO 81 mg DAILY ELIE Administration Atorvastatin Calcium 40 mg 09/16/20 09:00 09/24/20 08:47 Atorvastatin Calcium 40 Mg Tab PO 40 mg DAILY ELIE Administration Carvedilol 6.25 mg 09/16/20 21:00 09/24/20 08:47 Carvedilol 6.25 Mg Tab PO 6.25 mg BID ELIE Administration Chlorphenir/Hydrocodone Polistirex 5 ml 09/21/20 11:40 09/23/20 18:15 Hydrocodone/Chlorphen Polis 5 Ml Udcup PO 5 ml Q12H PRN Administration Cough Furosemide 40 mg 09/24/20 07:30 09/24/20 08:46 Furosemide 40 Mg Tab PO 40 mg DAILY-AC ELIE Administration Guaifenesin 600 mg 09/20/20 09:00 09/24/20 08:47 Guaifenesin Er 600 Mg Tab PO 600 mg Q12HR ELIE Administration Mometasone Furoate/Formoterol Fumar 2 puff 09/16/20 18:30 09/24/20 08:22 Mometasone 200 Mcg/Formoterol 5 Mcg 120 Puff Inhaler INH 2 puff BID-RT ELIE Administration Pantoprazole Sodium 40 mg 09/18/20 09:00 09/24/20 08:47 Pantoprazole 40 Mg Tab PO 40 mg DAILY ELIE Administration Prednisone 30 mg 09/22/20 21:00 09/24/20 08:47 Prednisone 20 Mg Tab PO 30 mg BID ELIE Administration Rivaroxaban 20 mg 09/16/20 17:00 09/23/20 17:19 Rivaroxaban 10 Mg Tab PO 20 mg 1700 ELIE Administration Sacubitril/Valsartan 1 tab 09/18/20 09:00 09/24/20 08:48 Sacubitril 24mg/Valsartan 26mg Tab PO 1 tab BID ELIE Administration Sertraline HCl 100 mg 09/16/20 09:00 09/24/20 08:47 Sertraline Hcl 100 Mg Tab PO 100 mg DAILY ELIE Administration Sodium Chloride 10 ml 09/16/20 21:00 09/23/20 21:02 Flush - Normal Saline 10 Ml Syringe IVF 10 ml Q12HR ELIE Administration Sodium Chloride 10 ml 09/16/20 09:45 09/16/20 22:38 Flush - Normal Saline 10 Ml Syringe IVF 10 ml PRN PRN Administration Saline Flush Tizanidine HCl 4 mg 09/16/20 09:00 09/24/20 08:48 Tizanidine Hcl 4 Mg Tab PO 4 mg TID ELIE Administration Zolpidem Tartrate 10 mg 09/17/20 21:00 09/23/20 22:10 Zolpidem Tartrate 5 Mg Tab PO 10 mg HS ELIE Administration - Exam General Appearance: awake alert Eye: PERRL, anicteric sclera ENT: no oropharyngeal lesions, moist mucosa Neck: supple, no JVD Heart: RRR, no murmur Respiratory: no wheezes, rales, rhonchi Gastrointestinal: soft, non-tender, non-distended, normal bowel sounds Extremities: no cyanosis, no edema Neurological: cranial nerve grossly intact, no focal deficits Psychiatric: normal affect, A&O x 3 Hosp A/P (1) Acute and chronic respiratory failure with hypoxia Code(s): J96.21 - ACUTE AND CHRONIC RESPIRATORY FAILURE WITH HYPOXIA Status: Acute (2) Acute on chronic congestive heart failure Code(s): I50.9 - HEART FAILURE, UNSPECIFIED Status: Acute Qualifiers: Heart failure type: combined systolic and diastolic Qualified Code(s): I50.43 - Acute on chronic combined systolic (congestive) and diastolic (congestive) heart failure (3) Amiodarone pulmonary toxicity Code(s): J98.4 - OTHER DISORDERS OF LUNG; T46.2X5A - ADVERSE EFFECT OF OTHER ANTIDYSRHYTHMIC DRUGS, INIT ENCNTR Status: Suspected (4) COPD exacerbation Code(s): J44.1 - CHRONIC OBSTRUCTIVE PULMONARY DISEASE W (ACUTE) EXACERBATION Status: Resolved (5) Multifocal pneumonia Code(s): J18.9 - PNEUMONIA, UNSPECIFIED ORGANISM Status: Resolved (6) CAD (coronary artery disease) Code(s): I25.10 - ATHSCL HEART DISEASE OF [place] CORONARY ARTERY W/O ANG PCTRS Status: Chronic Qualifiers: Coronary Disease-Associated Artery/Lesion type: bypass graft [place] vs. transplanted heart: [place] heart Associated angina: without angina Qualified Code(s): I25.810 - Atherosclerosis of coronary artery bypass graft(s) without angina pectoris (7) Chronic atrial fibrillation Code(s): I48.20 - CHRONIC ATRIAL FIBRILLATION, UNSPECIFIED Status: Chronic (8) HLD (hyperlipidemia) Code(s): E78.5 - HYPERLIPIDEMIA, UNSPECIFIED Status: Chronic Qualifiers: Hyperlipidemia type: unspecified Qualified Code(s): E78.5 - Hyperlipidemia, unspecified (9) HTN (hypertension) Code(s): I10 - ESSENTIAL (PRIMARY) HYPERTENSION Status: Chronic Qualifiers: Hypertension type: essential hypertension Qualified Code(s): I10 - Essential (primary) hypertension - Plan is on high flow O2, off amiodarone, no arrhythmias on telemetry continue asp, lipitor, finished full course of levaquin 09/23, steroids, dulera, xarelto, entersto and zoloft ef is 35%, oral lasix. prognosis guarded mobilize as tolerated, encourage to exercise while on bed plan is to switch him to sotalol or mexelitine after amiodarone wash out, QT normalization per . may need ltac if he remains on high flow O2 or home with HH, PT and nasal canula O2 if he improves.
--- NOTE | 2020-09-24 13:34 | PDOC.EP ---
- Subjective Date: 09/24/20 Time: 13:33 Interval History: Pt transfered to regular floor. No new cardiac events. Still on high flow O2. - Review of Systems Respiratory: reports: cough, SOB with excertion. denies: sputum Cardiology: denies: chest pain, heart racing, palpitations Gastrointestinal: denies: abdominal pain - Objective Allergies/Adverse Reactions: Allergies Allergy/AdvReac Type Severity Reaction Status Date / Time cephalexin [From Keflex] Allergy Verified 09/16/20 03:35 Current Medications Acetaminophen (Acetaminophen 325 Mg Tab) 650 mg PO Q4H PRN PRN Reason: Headache/Fever/Mild Pain (1-3) Last Admin: 09/21/20 17:20 Dose: 650 mg Documented by: Hydrocodone Bitart/Acetaminophen (Hydrocodone/Acetaminophen 10/325 Mg Tablet) 2 tab PO Q6H PRN PRN Reason: Moderate to Severe Pain (6-10) Last Admin: 09/24/20 04:16 Dose: 2 tab Documented by: Albuterol Sulfate (Albuterol 200 Puff (6.7gm Inhaler)) 2 puff INH Q2H PRN PRN Reason: SOB Albuterol/Ipratropium (Ipratropium/Albuterol Sulfate 3 Ml Neb) 3 ml NEB [id number] [facility] [place] Last Admin: 09/24/20 13:26 Dose: 3 ml Documented by: Aspirin (Aspirin 81 Mg Enteric Coated Tablet) 81 mg PO DAILY [facility] [place] Last Admin: 09/24/20 08:46 Dose: 81 mg Documented by: Atorvastatin Calcium (Atorvastatin Calcium 40 Mg Tab) 40 mg PO DAILY [facility] [place] Last Admin: 09/24/20 08:47 Dose: 40 mg Documented by: Carvedilol (Carvedilol 6.25 Mg Tab) 6.25 mg PO BID [facility] [place] Last Admin: 09/24/20 08:47 Dose: 6.25 mg Documented by: Chlorphenir/Hydrocodone Polistirex (Hydrocodone/Chlorphen Polis 5 Ml Udcup) 5 ml PO Q12H PRN PRN Reason: Cough Last Admin: 09/23/20 18:15 Dose: 5 ml Documented by: Furosemide (Furosemide 40 Mg Tab) 40 mg PO DAILY-AC [facility] [place] Last Admin: 09/24/20 08:46 Dose: 40 mg Documented by: Guaifenesin (Guaifenesin Er 600 Mg Tab) 600 mg PO Q12HR [facility] [place] Last Admin: 09/24/20 08:47 Dose: 600 mg Documented by: Mometasone Furoate/Formoterol Fumar (Mometasone 200 Mcg/Formoterol 5 Mcg 120 Puff Inhaler) 2 puff INH BID-RT [facility] [place] Last Admin: 09/24/20 08:22 Dose: 2 puff Documented by: Pantoprazole Sodium (Pantoprazole 40 Mg Tab) 40 mg PO DAILY [facility] [place] Last Admin: 09/24/20 08:47 Dose: 40 mg Documented by: Prednisone (Prednisone 20 Mg Tab) 30 mg PO BID [facility] [place] Last Admin: 09/24/20 08:47 Dose: 30 mg Documented by: Rivaroxaban (Rivaroxaban 10 Mg Tab) 20 mg PO 1700 [facility] [place] Last Admin: 09/23/20 17:19 Dose: 20 mg Documented by: Sacubitril/Valsartan (Sacubitril 24mg/Valsartan 26mg Tab) 1 tab PO BID [facility] [place] Last Admin: 09/24/20 08:48 Dose: 1 tab Documented by: Sertraline HCl (Sertraline Hcl 100 Mg Tab) 100 mg PO DAILY [facility] [place] Last Admin: 09/24/20 08:47 Dose: 100 mg Documented by: Sodium Chloride (Flush - Normal Saline 10 Ml Syringe) 10 ml IVF Q12HR [facility] [place] Last Admin: 09/23/20 21:02 Dose: 10 ml Documented by: Sodium Chloride (Flush - Normal Saline 10 Ml Syringe) 10 ml IVF PRN PRN PRN Reason: Saline Flush Last Admin: 09/16/20 22:38 Dose: 10 ml Documented by: Tizanidine HCl (Tizanidine Hcl 4 Mg Tab) 4 mg PO TID [facility] [place] Last Admin: 09/24/20 08:48 Dose: 4 mg Documented by: Zolpidem Tartrate (Zolpidem Tartrate 5 Mg Tab) 10 mg PO HS [facility] [place] Last Admin: 09/23/20 22:10 Dose: 10 mg Documented by: Vital Signs & Weight: Vital Signs Temp Pulse Resp BP BP Pulse Ox 09/24/20 13:26 70 20 93 L 09/24/20 11:15 97.6 F 68 20 100/55 L 94 L 09/24/20 08:47 98/62 09/24/20 08:22 100 22 H 93 L 09/24/20 07:45 94 L 09/24/20 07:39 97.3 F L 69 20 107/53 L 94 L 09/24/20 03:44 97.5 F L 60 17 128/60 96 Admit Weight 260 lb 7 oz Weight 253 lb 6.4 oz I/O: I/O 09/23/20 09/24/20 09/25/20 06:59 06:59 06:59 Intake Total 850 860 240 Output Total 2300 2045 450 Balance -3482 -6845 -210 - Quality Measures Condition: Atrial Fibrillation/Flutter (hx or current) CV meds: Xarelto: Yes - Physical Exam General: alert & oriented x3, appears well Neck: no JVD/HJR Cardiology: no murmur, regular rate Lungs: clear to auscultation, no wheezes, no rales Neurology: grossly intact Abdomen: unremarkable, soft, non-tender Extremities: warm Skin: device site stable w/o swelling Musculoskeletal: no pain, no fluid collection - Labs Result Diagrams: 09/19/20 08:58 09/24/20 04:18 - EKG Interpretation Status: report reviewed by me EKG Method: Telemetry EKG shows: Sinus rhythm (V paced) - Device Device: biventricular, defibrillator Device Result: [employer] - Assessment/Plan Assessment/Plan: 1. Mr. Espinosa is a 70-year-old man with a history of ischemic cardiomyopathy, recurrent ventricular and atrial arrhythmias. He had repeated left ventricular ablations most recently on August 13, 2019, despite had recurrent ICD shocks after the ablation, requiring amiodarone suppression. Now, he developed pneumonitis without evidence of COVID infection at this point. - Amiodarone on hold. There is a concern of recurrent arrhythmias after amiodarone washout. - High dose steroid therapy as per Pulmonary recommendation and oxygen supplementation. Once amiodarone washes out and atrial or ventricular arrhythmias are recurring, if QT interval is normalizing, he maybe considered for sotalol or Mexitil therapy. For now, this is not initiated to avoid additive QT prolongation from the residual amiodarone and sotalol. Mexitil could be considered if ventricular tachycardia occurs before QT normalizes. 3. Congestive heart failure, now well compensated without evidence of fluid overload both on device and based on BNP and physical exam. 4. Biventricular ICD with adequate function, currently 98.8% ventricularly paced. Continue monitoring. Could consider extending AV delay if still narrow QRS is underlying. 5. History of atrial fibrillation, on Xarelto. 09/23/20. No new arrhythmia events overnight. Avoid QT prolonging agents. If arrhythmia recurrence is seen, consider initiating Sotalol or Mexitil. Continue xarelto. 09/24/20. For now remains free of arrhythmia. Remains on high flow O2. Poss placement to LTAC/rehab. Will see outptt in 6 weeks. .
[2020-09-24] MEDS: Rivaroxaban 10 MG TAB PO SCH (16:29)
[2020-09-24] MEDS: Zolpidem Tartrate 5 MG TAB PO SCH (21:29)
[2020-09-25] MEDS: HYDROcodone/Chlorphen Polis 5 ML UDCUP PO PRN (02:16)
[2020-09-25 04:59] LABS: Anion Gap 15 mmol/L (10-20); BUN (Urea Nitrogen) 23 mg/dL (8.4-25.7); Calc. Creatinine Clearance 149 mL/min (70-130); Carbon Dioxide 24 mmol/L (23-31); Chloride 99 mmol/L (98-107); Glucose 123 mg/dL (80-115); Potassium 5.2 mmol/L (3.5-5.1); Sodium 133 mmol/L (136-145)
[2020-09-25] MEDS: HYDROcodone/Acetaminophen 10/325 mg Tablet PO PRN ×3 (06:01→21:57)
[2020-09-25] MEDS: Mometasone 200 MCG/Formoterol 5 MCG 120 PUFF INHALER INH SCH ×2 (06:56→18:36)
[2020-09-25] MEDS: guaiFENesin ER 600 MG TAB PO SCH ×2 (08:36→21:56)
[2020-09-25] MEDS: predniSONE 20 MG TAB PO SCH ×2 (08:36→21:56)
[2020-09-25] MEDS: Atorvastatin Calcium 40 MG TAB PO SCH (08:36)
[2020-09-25] MEDS: Carvedilol 6.25 MG TAB PO SCH (08:37)
[2020-09-25] MEDS: Furosemide 40 MG TAB PO SCH (08:37)
[2020-09-25] MEDS: Aspirin 81 mg Enteric Coated Tablet PO SCH (08:37)
[2020-09-25] MEDS: tiZANidine HCl 4 MG TAB PO SCH ×3 (08:37→21:56)
--- NOTE | 2020-09-25 12:20 | PDOC.HOSPP ---
- Subjective Encounter Date: 09/25/20 Encounter Time: 12:18 Subjective: This is a 70-year-old patient who was admitted to the hospital for shortness of breath with broad differential diagnosis including congestive heart failure and pneumonia. He does have history of CHF, COPD, chronic atrial fibrillation. He reportedly failed outpatient antibiotic therapy for pneumonia. He has been doing really well but unfortunately he remains dyspneic and I attempt to wean him down on the high flow has not been successful. During the course of the stay he has been seen by [facility] couples therapist. 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 Ongoing plan to wean him down on the high flow and hopefully get him stable enough to discharge to rehab hospital. - Objective Vital Signs & Weight: Vital Signs (12 hours) Temp Pulse Resp BP Pulse Ox 09/25/20 11:30 97.5 F L 70 17 116/55 L 90 L 09/25/20 10:27 92 L 09/25/20 10:26 88 L 09/25/20 07:50 98.1 F 70 17 137/63 90 L 09/25/20 06:48 96 09/25/20 06:47 89 21 H 09/25/20 03:32 97.6 F 76 22 H 118/70 91 L 09/25/20 01:15 61 17 111/56 L 94 L 09/25/20 00:32 18 L 18 97 Weight Admit Weight 260 lb 7 oz Weight 252 lb 9.6 oz Most Recent Monitor Data Heart Rate from ECG 70 NIBP 130/76 NIBP BP-Mean 94 Respiration from ECG 22 SpO2 95 I&O: 09/24/20 09/25/20 09/26/20 06:59 06:59 06:59 Intake Total 860 1490 Output Total 2046 6800 Balance -5085 -748 Result Diagrams: 09/19/20 08:58 09/25/20 04:01 Radiology Reviewed by me: Yes EKG Reviewed by me: Yes Hospitalist ROS - Review of Systems Constitutional: reports: weakness, malaise Respiratory: reports: cough, dry, shortness of breath, SOB with excertion Cardiovascular: reports: paroxysmal noc. dyspnea Neurological: reports: weakness, numbness - Medication Medications: Active Medications Generic Name Dose Route Start Last Admin Trade Name Freq PRN Reason Stop Dose Admin Acetaminophen 650 mg 09/15/20 20:36 09/21/20 17:20 Acetaminophen 325 Mg Tab PO 650 mg Q4H PRN Administration Headache/Fever/Mild Pain (1-3) Hydrocodone Bitart/Acetaminophen 2 tab 09/16/20 09:44 09/25/20 06:01 Hydrocodone/Acetaminophen 10/325 Mg Tablet PO 2 tab Q6H PRN Administration Moderate to Severe Pain (6-10) Albuterol/Ipratropium 3 ml 09/17/20 13:00 09/25/20 06:47 Ipratropium/Albuterol Sulfate 3 Ml Neb NEB 3 ml [id number] ELIE Administration Aspirin 81 mg 09/16/20 09:00 09/25/20 08:37 Aspirin 81 Mg Enteric Coated Tablet PO 81 mg DAILY ELIE Administration Atorvastatin Calcium 40 mg 09/16/20 09:00 09/25/20 08:36 Atorvastatin Calcium 40 Mg Tab PO 40 mg DAILY ELIE Administration Carvedilol 6.25 mg 09/16/20 21:00 09/25/20 08:37 Carvedilol 6.25 Mg Tab PO 6.25 mg BID ELIE Administration Chlorphenir/Hydrocodone Polistirex 5 ml 09/21/20 11:40 09/25/20 02:16 Hydrocodone/Chlorphen Polis 5 Ml Udcup PO 5 ml Q12H PRN Administration Cough Furosemide 40 mg 09/24/20 07:30 09/25/20 08:37 Furosemide 40 Mg Tab PO 40 mg DAILY-AC ELIE Administration Guaifenesin 600 mg 09/20/20 09:00 09/25/20 08:36 Guaifenesin Er 600 Mg Tab PO 600 mg Q12HR ELIE Administration Mometasone Furoate/Formoterol Fumar 2 puff 09/16/20 18:30 09/25/20 06:56 Mometasone 200 Mcg/Formoterol 5 Mcg 120 Puff Inhaler INH 2 puff BID-RT ELIE Administration Pantoprazole Sodium 40 mg 09/18/20 09:00 09/25/20 08:37 Pantoprazole 40 Mg Tab PO 40 mg DAILY ELIE Administration Prednisone 30 mg 09/22/20 21:00 09/25/20 08:36 Prednisone 20 Mg Tab PO 30 mg BID ELIE Administration Rivaroxaban 20 mg 09/16/20 17:00 09/24/20 16:29 Rivaroxaban 10 Mg Tab PO 20 mg 1700 ELIE Administration Sacubitril/Valsartan 1 tab 09/18/20 09:00 09/25/20 08:37 Sacubitril 24mg/Valsartan 26mg Tab PO 1 tab BID ELIE Administration Sertraline HCl 100 mg 09/16/20 09:00 09/25/20 08:37 Sertraline Hcl 100 Mg Tab PO 100 mg DAILY ELIE Administration Sodium Chloride 10 ml 09/16/20 21:00 09/25/20 08:36 Flush - Normal Saline 10 Ml Syringe IVF 10 ml Q12HR ELIE Administration Sodium Chloride 10 ml 09/16/20 09:45 09/16/20 22:38 Flush - Normal Saline 10 Ml Syringe IVF 10 ml PRN PRN Administration Saline Flush Tizanidine HCl 4 mg 09/16/20 09:00 09/25/20 08:37 Tizanidine Hcl 4 Mg Tab PO 4 mg TID ELIE Administration Zolpidem Tartrate 10 mg 09/17/20 21:00 09/24/20 21:29 Zolpidem Tartrate 5 Mg Tab PO 10 mg HS ELIE Administration - Exam General Appearance: awake alert, ill appearing Eye: PERRL, anicteric sclera ENT: normocephalic atraumatic, no oropharyngeal lesions, moist mucosa Neck: supple, symmetric, no JVD, no thyromegaly Heart: RRR, no murmur, no gallops, no rubs, normal peripheral pulses Respiratory: normal chest expansion, normal percussion, tachypneic, wheezes Gastrointestinal: soft, non-tender, non-distended, normal bowel sounds Neurological: cranial nerve grossly intact, normal sensation to touch, no weakness Musculoskeletal: normal tone, normal strength Psychiatric: normal affect, normal behavior, A&O x 3, oriented to person Hosp A/P (1) Acute and chronic respiratory failure with hypoxia Code(s): J96.21 - ACUTE AND CHRONIC RESPIRATORY FAILURE WITH HYPOXIA Status: Acute Plan: Likely a combination of COPD and CHF exacerbations. Continue high flow nasal cannula. We will continue to wean this off. (2) Acute on chronic congestive heart failure Code(s): I50.9 - HEART FAILURE, UNSPECIFIED Status: Acute Qualifiers: Heart failure type: combined systolic and diastolic Qualified Code(s): I50.43 - Acute on chronic combined systolic (congestive) and diastolic (congestive) heart failure Plan: He is responding to diuretics. I would like to repeat a chest x-ray and BNP (3) CAD (coronary artery disease) Code(s): I25.10 - ATHSCL HEART DISEASE OF [place] CORONARY ARTERY W/O ANG PCTRS Status: Chronic Qualifiers: Coronary Disease-Associated Artery/Lesion type: bypass graft [place] vs. transplanted heart: [place] heart Associated angina: without angina Qualified Code(s): I25.810 - Atherosclerosis of coronary artery bypass graft(s) without angina pectoris Plan: We will continue his routine home medications. (4) Chronic atrial fibrillation Code(s): I48.20 - CHRONIC ATRIAL FIBRILLATION, UNSPECIFIED Status: Chronic (5) Amiodarone pulmonary toxicity Code(s): J98.4 - OTHER DISORDERS OF LUNG; T46.2X5A - ADVERSE EFFECT OF OTHER ANTIDYSRHYTHMIC DRUGS, INIT ENCNTR Status: Suspected - Plan old records reviewed/req, PT/OT, respiratory therapy, incentive spirometry, out of bed/ambulate
--- NOTE | 2020-09-25 13:50 | PRG ---
DATE OF SERVICE: 09/25/2020 SUBJECTIVE: He is about the same. Had no acute complaints. OBJECTIVE: VITAL SIGNS: Temperature 97.5, pulse 70, respirations 17, O2 saturation 92% on 50% high-flow oxygen. HEENT: Unremarkable. NECK: No JVD. LUNGS: Inspiratory crackles. CARDIAC: S1 and S2. Regular. ABDOMEN: Soft. EXTREMITIES: No edema. LABORATORY DATA: Sodium 133, potassium 5.2, BUN 23, creatinine 0.7, glucose 123. ASSESSMENT: 1. Amiodarone lung toxicity. 2. Mild hyperkalemia. RECOMMENDATION: Continue steroids and wean oxygen as tolerated. Job ID: [id number]
[2020-09-25] MEDS ORDERED: Sodium Chloride 0.9% 250 ML IVPB SCH ×2 (16:00→16:45)
--- NOTE | 2020-09-25 16:08 | RAD ---
EXAM: CHEST ONE VIEW HISTORY: Shortness of breath. COMPARISON: 09/15/2020 FINDINGS: Multilead left subclavian acid device remains place. Postoperative changes related to CABG are again seen. Multiple monitor leads overlie the chest. Cardiac silhouette remains in enlarged. Extensive interstitial opacities are again seen throughout the lungs bilaterally. These findings may be related to infectious process or pulmonary edema. However, given similar findings on prior examination developing chronic changes are possibility.. No other interval change. IMPRESSION: Persistent increased interstitial opacities within the lungs bilaterally not significantly changed wh en compared to prior exam. Findings could be related to either pulmonary edema or infectious process. However, given similar findings on prior exam, developing chronic interstitial fibrotic lung changes is also a possibility.
--- NOTE | 2020-09-25 17:15 | PRG ---
DATE OF SERVICE: 09/25/2020 I was called to Mr. Espinosa's bedside. Mr. Espinosa developed hypotension. He received Coreg, in addition Entresto and Lasix this morning. He also received pain medications. He is fairly asymptomatic outside of mild dizziness. He has been given one dose of 250 mL bolus of IV fluids and is currently asymptomatic because the blood pressure remains in the 80s. PHYSICAL EXAMINATION: VITAL SIGNS: Blood pressure 80/55, heart rate 80, and respirations 20. LUNGS: Clear to auscultation. HEART: Regular rate and rhythm. ABDOMEN: Soft, nontender, and nondistended. EXTREMITIES: No edema. PERTINENT LABORATORY DATA: Hemoglobin 13.2. Creatinine 0.77. IMPRESSION: 1. Hypotension. 2. Cardiomyopathy. 3. Ventricular tachycardia, status post ablation. 4. Status post implantable cardioverter defibrillator. RECOMMENDATIONS: I will give additional IV fluid bolus of 250 mL. Mr. Espinosa appears to have had medications that may have caused his blood pressure to decrease. We will hold Lasix. If blood pressure does not increase, may recommend MICU for closer observation. Job ID: [id number]
[2020-09-25] MEDS: Rivaroxaban 10 MG TAB PO SCH (18:28)
[2020-09-25] MEDS: Zolpidem Tartrate 5 MG TAB PO SCH (21:56)
[2020-09-25 23:10] LABS: Actual Bicarbonate (HCO3a) 29.7 mEq/L (22-28); Base Excess (BEa) 4.5 mEq/L (-2.0 to +3.0); CO2 Tension 46.2 mmHg (35.0-45.0); Calcium, Ionized (arterial) 1.16 mmol/L (1.12-1.30); Carboxyhemoglobin (COHb) 1.3 gm% (0.0-3.0); Hemoglobin (Hb) 13.7 g/dL (14.0-18.0); Potassium - ABG Lab 4.08 mmol/L (3.70-5.30); pH, Arterial 7.43 (7.35-7.45)
[2020-09-25 23:13] LABS: O2 Tension (PaO2), arterial 59.1 mmHg (> 80.0); Puncture Site RRA
--- NOTE | 2020-09-25 23:48 | RAD ---
EXAM: CHEST ONE VIEW HISTORY: Difficulty breathing. COMPARISON: 09/25/2020 at 1541 hours. FINDINGS: Multilead left subclavian cardiac pacemaking device remains place. Postoperative changes related to C ABG are again seen. Cardiac silhouette remains enlarged. Persistent increased interstitial opacities are again seen throughout the lungs unchanged from prior exam. There has been no interval c hange from prior study. IMPRESSION: Stable chest with persistent extensive interstitial opacities bilaterally.
--- NOTE | 2020-09-26 00:39 | PDOC.EVN ---
Event Note - Event Note Event Note: Patient with increasing oxygen demand. ABG and chest xray ordered at this time. Patient in no acute distress when talking at bedside, able to talk in full sentences and appears comfortable. Discussed case with Dr. James, recommendation given for one time dose of lasix as patient had received IV bolus earlier.
[2020-09-26] MEDS ORDERED: Furosemide 20 MG/2 ML VIAL SLOW IVP SCH (00:45)
[2020-09-26] MEDS: HYDROcodone/Chlorphen Polis 5 ML UDCUP PO PRN (00:52)
[2020-09-26] MEDS: HYDROcodone/Acetaminophen 10/325 mg Tablet PO PRN ×3 (04:13→21:51)
[2020-09-26 04:47] LABS: Anion Gap 14 mmol/L (10-20); BUN (Urea Nitrogen) 19 mg/dL (8.4-25.7); Calc. Creatinine Clearance 159 mL/min (70-130); Calcium 7.7 mg/dL (7.8-10.44); Carbon Dioxide 26 mmol/L (23-31); Chloride 98 mmol/L (98-107); Glucose 116 mg/dL (80-115); Potassium 4.3 mmol/L (3.5-5.1); Sodium 134 mmol/L (136-145)
[2020-09-26 05:53] LABS: Anisocytosis SLIGHT = 6-15 cells (100X) (0-5/hpf); Band 8 % (5-11); Hemoglobin 14.1 g/dL (14.0-18.0); Lymphocytes 7 % (21-51); MDiff Complete? YES; Mean Corpuscular HGB CONC 32.1 g/dL (32.0-36.0); Mean Corpuscular Volume 90.2 fL (78.0-98.0); Mean Platelet Volume 9.6 fL (7.4-10.4); Monocytes 2 % (0-10); Neutrophil 83 % (42-75); Platelet Count 194 thou/uL (130-400); RBC Distribution Width 15.3 % (11.5-14.5); Red Blood Cell (RBC) Count 4.88 mill/uL (4.70-6.10); White Blood Cell (WBC) Count 22.3 thou/uL (4.8-10.8)
[2020-09-26] MEDS: Mometasone 200 MCG/Formoterol 5 MCG 120 PUFF INHALER INH SCH ×2 (07:45→18:29)
[2020-09-26] MEDS: guaiFENesin ER 600 MG TAB PO SCH ×2 (08:56→20:53)
[2020-09-26] MEDS: predniSONE 20 MG TAB PO SCH ×2 (08:57→20:53)
[2020-09-26] MEDS: tiZANidine HCl 4 MG TAB PO SCH ×3 (08:57→20:53)
[2020-09-26] MEDS: Atorvastatin Calcium 40 MG TAB PO SCH (08:57)
[2020-09-26] MEDS: Aspirin 81 mg Enteric Coated Tablet PO SCH (08:57)
--- NOTE | 2020-09-26 10:22 | PDOC.CPN ---
- Subjective Date: 09/26/20 Time: 09:50 Interval history: Patient with hypotensive episode yesterday. Entresto, lasix and coreg held. Given IVFs. Last night was mildly SOB and given further IV lasix. Normal BNP. Today BP stable and breathing stable. - Review of Systems Respiratory: reports: shortness of breath, exercise intolerance Cardiovascular: denies: chest pain, palpitation, edema, paroxysmal nocturnal dyspnea, orthopnea Gastrointestinal: denies: nausea, vomiting, diarrhea, constipation, abd pain, GI bleeding Musculoskeletal: denies: pain, tenderness, stiffness, swelling, arthritis/arthralgias Neurological: denies: numbness, syncope, seizure, weakness - Objective Allergies/Adverse Reactions: Allergies Allergy/AdvReac Type Severity Reaction Status Date / Time cephalexin [From Keflex] Allergy Verified 09/16/20 03:35 Visit Medications: Current Medications Acetaminophen (Acetaminophen 325 Mg Tab) 650 mg PO Q4H PRN PRN Reason: Headache/Fever/Mild Pain (1-3) Last Admin: 09/21/20 17:20 Dose: 650 mg Documented by: Albuterol Sulfate (Albuterol 200 Puff (6.7gm Inhaler)) 2 puff INH Q2H PRN PRN Reason: SOB Albuterol/Ipratropium (Ipratropium/Albuterol Sulfate 3 Ml Neb) 3 ml NEB [id number] [facility] Last Admin: 09/26/20 07:37 Dose: 3 ml Documented by: Aspirin (Aspirin 81 Mg Enteric Coated Tablet) 81 mg PO DAILY [facility] Last Admin: 09/26/20 08:57 Dose: 81 mg Documented by: Atorvastatin Calcium (Atorvastatin Calcium 40 Mg Tab) 40 mg PO DAILY [facility] Last Admin: 09/26/20 08:57 Dose: 40 mg Documented by: Carvedilol (Carvedilol 3.125 Mg Tab) 3.125 mg PO BID-WM [facility] Chlorphenir/Hydrocodone Polistirex (Hydrocodone/Chlorphen Polis 5 Ml Udcup) 5 ml PO Q12H PRN PRN Reason: Cough Last Admin: 09/26/20 00:52 Dose: 5 ml Documented by: Guaifenesin (Guaifenesin Er 600 Mg Tab) 600 mg PO Q12HR [facility] Last Admin: 09/26/20 08:56 Dose: 600 mg Documented by: Mometasone Furoate/Formoterol Fumar (Mometasone 200 Mcg/Formoterol 5 Mcg 120 Puff Inhaler) 2 puff INH BID-RT [facility] Last Admin: 09/26/20 07:45 Dose: 2 puff Documented by: Pantoprazole Sodium (Pantoprazole 40 Mg Tab) 40 mg PO DAILY [facility] Last Admin: 09/26/20 08:57 Dose: 40 mg Documented by: Prednisone (Prednisone 20 Mg Tab) 30 mg PO BID [facility] Last Admin: 09/26/20 08:57 Dose: 30 mg Documented by: Rivaroxaban (Rivaroxaban 10 Mg Tab) 20 mg PO 1700 [facility] Last Admin: 09/25/20 18:28 Dose: 20 mg Documented by: Sertraline HCl (Sertraline Hcl 100 Mg Tab) 100 mg PO DAILY [facility] Last Admin: 09/26/20 08:57 Dose: 100 mg Documented by: Sodium Chloride (Flush - Normal Saline 10 Ml Syringe) 10 ml IVF Q12HR [facility] Last Admin: 09/26/20 08:57 Dose: 10 ml Documented by: Sodium Chloride (Flush - Normal Saline 10 Ml Syringe) 10 ml IVF PRN PRN PRN Reason: Saline Flush Last Admin: 09/16/20 22:38 Dose: 10 ml Documented by: Tizanidine HCl (Tizanidine Hcl 4 Mg Tab) 4 mg PO TID [facility] Last Admin: 09/26/20 08:57 Dose: 4 mg Documented by: Zolpidem Tartrate (Zolpidem Tartrate 5 Mg Tab) 10 mg PO HS [facility] Last Admin: 09/25/20 21:56 Dose: 10 mg Documented by: Vital Signs & Weight: Vital Signs Temp Pulse Resp BP Pulse Ox 09/26/20 08:51 97.6 F 75 20 156/70 H 98 09/26/20 08:00 98 09/26/20 07:38 96 09/26/20 07:37 96 32 H 09/26/20 04:00 97.5 F L 69 15 126/60 99 09/26/20 00:41 90 L 09/26/20 00:38 74 121/59 L 92 L 09/26/20 00:01 74 22 H 87 L 09/26/20 00:00 76 115/61 Admit Weight 260 lb 7 oz Weight 252 lb 9.6 oz - Physical Exam General: alert & oriented x3, appears well HEENT: mucus membranes moist Neck: supple neck Cardiac: regular rate and rhythm Lungs: no wheezes, no rales Abdomen: soft, non-tender Skin: clear - Labs Result Diagrams: 09/26/20 03:56 09/26/20 03:56 Troponin/CKMB Troponin I 0.099 ng/mL (< 0.028) H 09/15/20 23:50 - Assessment/Plan Assessment/Plan: 1. Hypotension 2. Acute respiratory failure with Amiodarone lung 3. ICMO s/p BiV ICD 4. Hx atrial and ventricular arrhythmias in the past COntinue respiratory support. Will continue to evaluate BP today. Possibly resume Coreg only at lower dose tonight if remains stable.
--- NOTE | 2020-09-26 13:01 | PDOC.HOSPP ---
- Subjective Encounter Date: 09/26/20 Encounter Time: 12:59 Subjective: Events from last night are reviewed. Patient had a mild respiratory issues following volume administration for hypotension. He is otherwise doing better. He still remains on a high flow nasal cannula and attempts yesterday to wean him down was unsuccessful. We will continue to attempt this. We discussed LTAC placement and he would like to think more about this before he commits. - Objective Vital Signs & Weight: Vital Signs (12 hours) Temp Pulse Pulse Pulse Resp BP BP 09/26/20 10:01 73 70 111/53 L 133/63 09/26/20 08:51 97.6 F 75 20 09/26/20 08:00 09/26/20 07:38 09/26/20 07:37 96 32 H 09/26/20 04:00 97.5 F L 69 15 BP Pulse Ox Pulse Ox Pulse Ox 09/26/20 10:01 90 L 91 L 09/26/20 08:51 156/70 H 98 09/26/20 08:00 98 09/26/20 07:38 96 09/26/20 07:37 09/26/20 04:00 126/60 99 Weight Admit Weight 260 lb 7 oz Weight 252 lb 9.6 oz Most Recent Monitor Data Heart Rate from ECG 70 NIBP 130/76 NIBP BP-Mean 94 Respiration from ECG 22 SpO2 95 I&O: 09/25/20 09/26/20 09/27/20 06:59 06:59 06:59 Intake Total 1490 600 Output Total 2470 2600 Balance -980 -1999 Result Diagrams: 09/26/20 03:56 09/26/20 03:56 Radiology Reviewed by me: Yes EKG Reviewed by me: Yes Hospitalist ROS - Review of Systems Constitutional: reports: sweats, weakness Respiratory: reports: shortness of breath Gastrointestinal: reports: nausea Neurological: reports: weakness - Medication Medications: Active Medications Generic Name Dose Route Start Last Admin Trade Name Freq PRN Reason Stop Dose Admin Acetaminophen 650 mg 09/15/20 20:36 09/21/20 17:20 Acetaminophen 325 Mg Tab PO 650 mg Q4H PRN Administration Headache/Fever/Mild Pain (1-3) Albuterol/Ipratropium 3 ml 09/17/20 13:00 09/26/20 07:37 Ipratropium/Albuterol Sulfate 3 Ml Neb NEB 3 ml [id number] ELIE Administration Aspirin 81 mg 09/16/20 09:00 09/26/20 08:57 Aspirin 81 Mg Enteric Coated Tablet PO 81 mg DAILY ELIE Administration Atorvastatin Calcium 40 mg 09/16/20 09:00 09/26/20 08:57 Atorvastatin Calcium 40 Mg Tab PO 40 mg DAILY ELIE Administration Chlorphenir/Hydrocodone Polistirex 5 ml 09/21/20 11:40 09/26/20 00:52 Hydrocodone/Chlorphen Polis 5 Ml Udcup PO 5 ml Q12H PRN Administration Cough Guaifenesin 600 mg 09/20/20 09:00 09/26/20 08:56 Guaifenesin Er 600 Mg Tab PO 600 mg Q12HR ELIE Administration Mometasone Furoate/Formoterol Fumar 2 puff 09/16/20 18:30 09/26/20 07:45 Mometasone 200 Mcg/Formoterol 5 Mcg 120 Puff Inhaler INH 2 puff BID-RT ELIE Administration Pantoprazole Sodium 40 mg 09/18/20 09:00 09/26/20 08:57 Pantoprazole 40 Mg Tab PO 40 mg DAILY ELIE Administration Prednisone 30 mg 09/22/20 21:00 09/26/20 08:57 Prednisone 20 Mg Tab PO 30 mg BID ELIE Administration Rivaroxaban 20 mg 09/16/20 17:00 09/25/20 18:28 Rivaroxaban 10 Mg Tab PO 20 mg 1700 ELIE Administration Sertraline HCl 100 mg 09/16/20 09:00 09/26/20 08:57 Sertraline Hcl 100 Mg Tab PO 100 mg DAILY ELIE Administration Sodium Chloride 10 ml 09/16/20 21:00 09/26/20 08:57 Flush - Normal Saline 10 Ml Syringe IVF 10 ml Q12HR ELIE Administration Sodium Chloride 10 ml 09/16/20 09:45 09/16/20 22:38 Flush - Normal Saline 10 Ml Syringe IVF 10 ml PRN PRN Administration Saline Flush Tizanidine HCl 4 mg 09/16/20 09:00 09/26/20 08:57 Tizanidine Hcl 4 Mg Tab PO 4 mg TID ELIE Administration Zolpidem Tartrate 10 mg 09/17/20 21:00 09/25/20 21:56 Zolpidem Tartrate 5 Mg Tab PO 10 mg HS ELIE Administration - Exam General Appearance: awake alert, ill appearing ENT: normocephalic atraumatic, no oropharyngeal lesions Neck: supple, symmetric Heart: RRR, normal peripheral pulses Respiratory: no rales, normal chest expansion, tachypneic, wheezes Gastrointestinal: soft, non-tender, non-distended, normal bowel sounds Musculoskeletal: normal tone Hosp A/P (1) Acute and chronic respiratory failure with hypoxia Code(s): J96.21 - ACUTE AND CHRONIC RESPIRATORY FAILURE WITH HYPOXIA Status: Acute (2) Acute on chronic congestive heart failure Code(s): I50.9 - HEART FAILURE, UNSPECIFIED Status: Acute Qualifiers: Heart failure type: combined systolic and diastolic Qualified Code(s): I50.43 - Acute on chronic combined systolic (congestive) and diastolic (congestive) heart failure (3) CAD (coronary artery disease) Code(s): I25.10 - ATHSCL HEART DISEASE OF [place] CORONARY ARTERY W/O ANG PCTRS Status: Chronic Qualifiers: Coronary Disease-Associated Artery/Lesion type: bypass graft [place] vs. transplanted heart: [place] heart Associated angina: without angina Qualified Code(s): I25.810 - Atherosclerosis of coronary artery bypass graft(s) without angina pectoris (4) Chronic atrial fibrillation Code(s): I48.20 - CHRONIC ATRIAL FIBRILLATION, UNSPECIFIED Status: Chronic (5) Amiodarone pulmonary toxicity Code(s): J98.4 - OTHER DISORDERS OF LUNG; T46.2X5A - ADVERSE EFFECT OF OTHER ANTIDYSRHYTHMIC DRUGS, INIT ENCNTR Status: Suspected - Plan old records reviewed/req, respiratory therapy, incentive spirometry #1. Acute respiratory failure Likely combination of factors including CHF and amiodarone toxicity. Continue high flow nasal cannula. 2. Congestive heart failure. Continue home medications. 3. Chronic atrial fibrillation. He is appropriately on medications. 4. Coronary artery disease. Continue routine home medicines. 5. Amiodarone pulmonary toxicity.
--- NOTE | 2020-09-26 13:29 | PRG ---
DATE OF SERVICE: 09/26/2020 SUBJECTIVE: Patient remained hypoxic on high-flow nasal cannula. He had an up and down yesterday. He was diuresed, then became hypotensive, then was given fluid, became more hypoxic and then was diuresed again. OBJECTIVE: VITAL SIGNS: At current time, his temperature is 97.6, pulse 75, blood pressure 111/53, O2 saturation 91% on the high-flow oxygen. HEENT: Unremarkable. NECK: No adenopathy or JVD. LUNGS: Inspiratory crackles bilaterally. CARDIAC: S1, S2. Regular. ABDOMEN: Soft. EXTREMITIES: No edema. LABORATORY DATA: White blood cell count 22.3, hematocrit 44, platelet count 194. Sodium 134, potassium 4.3, chloride 98, CO2 of 26, BUN 19, creatinine 0.7, glucose 116. ASSESSMENT: 1. Probable amiodarone lung toxicity. 2. Hypoxic respiratory failure. PLAN: The half-life of amiodarone is very long, so it is not surprising that he has so slow to improve. We will continue him on corticosteroids and wean his oxygen as tolerated. This may take a long time. Job ID: [id number]
[2020-09-26] MEDS ORDERED: HYDROcodone/Acetaminophen 10/325 mg Tablet PO PRN (15:02)
[2020-09-26] MEDS ORDERED: Digoxin 0.5 MG/2 ML AMP SLOW IVP SCH ×2 (16:45→19:30)
[2020-09-26] MEDS: Rivaroxaban 10 MG TAB PO SCH (16:50)
[2020-09-26] MEDS: Carvedilol 3.125 MG TAB PO SCH (16:51)
[2020-09-26] MEDS ORDERED: Diltiazem HCl 125 MG, Admixture Fee 1 EACH in Sodium Chloride 0.9% 100 ML IVPB SCH (18:00)
[2020-09-26] MEDS ORDERED: Sodium Chloride 0.9% 500 ML IVPB SCH (19:30)
[2020-09-26] MEDS: Zolpidem Tartrate 5 MG TAB PO SCH (21:51)
[2020-09-27] MEDS: HYDROcodone/Chlorphen Polis 5 ML UDCUP PO PRN (02:34)
[2020-09-27 04:04] LABS: Base Excess (BEa) 2.6 mEq/L (-2.0 to +3.0); Carboxyhemoglobin (COHb) 1.4 gm% (0.0-3.0); Hemoglobin (Hb) 15.6 g/dL (14.0-18.0); Potassium - ABG Lab 4.55 mmol/L (3.70-5.30)
[2020-09-27 04:38] LABS: CO2 Tension 64.1 mmHg (35.0-45.0); O2 Tension (PaO2), arterial 30.5 mmHg (> 80.0)
[2020-09-27 04:39] LABS: ALV-art Gradient 602.375 mmHg (0-20); Puncture Site RRA
[2020-09-27 04:44] LABS: Actual Bicarbonate (HCO3a) 37.1 mEq/L (22-28); Base Excess (BEa) 3.3 mEq/L (-2.0 to +3.0); Carboxyhemoglobin (COHb) 1.3 gm% (0.0-3.0); Hemoglobin (Hb) 15.2 g/dL (14.0-18.0); Potassium - ABG Lab 4.91 mmol/L (3.70-5.30)
[2020-09-27] MEDS ORDERED: Propofol BOLUS 1,000 MG/100 ML VIAL IV PRN (04:45)
[2020-09-27] MEDS ORDERED: Lorazepam 2 MG/ML VIAL SLOW IVP PRN (04:45)
[2020-09-27] MEDS ORDERED: Fentanyl BOLUS 250 ML IVPB PRN (04:45)
[2020-09-27] MEDS ORDERED: Propofol 1,000 MG/100 ML VIAL IV PRN (04:45)
[2020-09-27] MEDS ORDERED: fentaNYL Citrate/PF 2,000 MCG in Sodium Chloride 0.9% 60 ML IV SCH (04:45)
[2020-09-27] MEDS ORDERED: DISCONTINUE PREVIOUS NARCOTIC PAIN MEDICATIONS AND BENZODIAZEPINES FS SCH (04:45)
[2020-09-27 04:59] LABS: Lactic Acid 2.6 mmol/L (0.5-2.2)
--- NOTE | 2020-09-27 05:00 | PDOC.BPN ---
- Brief Progress Note Encounter Date: 09/27/20 NICOLAS ESCALERA was called early in the night. Patient was tachypneic and had worsening shortness of breath and increased work of breathing. Decision was made to transfer him to the CCU. His symptoms did not improve on BiPAPwas intubated Pulmonology was consulted.
[2020-09-27 05:04] LABS: Anion Gap 14 mmol/L (10-20); BUN (Urea Nitrogen) 21 mg/dL (8.4-25.7); Calc. Creatinine Clearance 143 mL/min (70-130); Carbon Dioxide 29 mmol/L (23-31); Chloride 97 mmol/L (98-107); Glucose 272 mg/dL (80-115); Magnesium 2.4 mg/dL (1.6-2.6); Phosphorus 4.7 mg/dL (2.3-4.7); Potassium 5.3 mmol/L (3.5-5.1); Sodium 135 mmol/L (136-145)
[2020-09-27 05:08] LABS: Troponin I 0.031 ng/mL (< 0.028)
[2020-09-27] MEDS ORDERED: Rocuronium Bromide 10 MG/ML (10ML VIAL) ONE (05:11)
[2020-09-27] MEDS ORDERED: Rocuronium Bromide 10 MG/ML (10ML VIAL) IVP PRN (05:32)
[2020-09-27] MEDS ORDERED: Electrolyte Replacement Protocol 1 EACH FS PRN (05:41)
[2020-09-27] MEDS ORDERED: Ventilator Sedation Protocol 1 EACH FS ONE (05:41)
[2020-09-27] MEDS ORDERED: Aspirin 81 mg Enteric Coated Tablet PER TUBE SCH (05:43)
[2020-09-27] MEDS ORDERED: Micafungin 100 MG in Sodium Chloride 0.9% 100 ML IVPB SCH (06:00)
[2020-09-27] MEDS ORDERED: Furosemide 40 MG/4 ML VIAL SLOW IVP SCH (06:00)
--- NOTE | 2020-09-27 06:02 | OP ---
DATE OF PROCEDURE: 09/27/2020 PROCEDURE PERFORMED: Right subclavian central line placement. PREOPERATIVE DIAGNOSIS: Poor intravenous access, emergent need to place patient in prone position ventilation. POSTOPERATIVE DIAGNOSIS: Successful central line placement. ANESTHESIA: 1% lidocaine without epinephrine. DESCRIPTION OF PROCEDURE: The patient was placed in Trendelenburg position. The operative site at the right subclavian area was scrubbed with chlorhexidine and draped sterilely. 1% lidocaine was used to anesthetize the entry site. Using modified Seldinger technique, a right subclavian triple-lumen catheter was placed in the right subclavian vein on the first attempt without difficulty. Three ports flushed venous blood. Placement was confirmed by x-ray. Job ID: [id number]
--- NOTE | 2020-09-27 06:12 | PRG ---
DATE OF SERVICE: 09/27/2020 This is a 45 minutes critical care time. SUBJECTIVE: The patient was brought over to the CCU earlier this evening with acute respiratory failure related to amiodarone lung toxicity. I was notified by nursing staff that he had been intubated before I was even notified that he was decompensating. On my arrival, his O2 saturations were in the high 70s to low 80s on bilevel ventilation 100% and it was clear that he would need prone position ventilation. He had poor IV access, so I had to place in the emergent right subclavian triple-lumen catheter. OBJECTIVE: VITAL SIGNS: Current vital signs; heart rate 114, blood pressure 130/79, and O2 saturation 82%. HEENT: Unremarkable. NECK: No adenopathy or JVD. LUNGS: Coarse crackles. CARDIAC: S1 and S2, regular. ABDOMEN: Soft. EXTREMITIES: No edema. LABORATORY DATA: White blood cell count 22.3, hematocrit 44, platelet count 194 yesterday. Today's chemistry, sodium 135, potassium 5.3, chloride 97, CO2 of 29, BUN 21, creatinine 0.8, glucose 272. ABG; pH 7.30, pCO2 of 64, pO2 of 30. X-ray shows diffuse bilateral infiltrates. ASSESSMENT: 1. 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 2. Negative COVID on several test. 3. Acute respiratory failure, requiring mechanical ventilation. 4. History of multiple cardiac issues. PLAN: 1. Prone position ventilation. 2. Increase steroid dose. 3. Empirically cover with meropenem and micafungin; although, he had been on antibiotics up until several days ago. 4. I doubt this is a pulmonary embolism as he is on chronic anticoagulation. 5. He is too hypoxic and sick to undergo bronchoscopy. 6. We will update family. 7. Prognosis is very poor. Job ID: [id number]
[2020-09-27] MEDS ORDERED: Norepinephrine 8 MG/0.9% NS 250 ML IVPB SCH (06:30)
[2020-09-27] MEDS: methylPREDNISolone Sod Succ 40 MG VIAL IVP SCH ×2 (06:48→14:12)
[2020-09-27] MEDS: Meropenem 2 GM in Sodium Chloride 0.9% 100 ML IVPB SCH ×3 (06:59→14:09)
--- NOTE | 2020-09-27 07:58 | RAD ---
Portable frontal chest radiograph: 09/27/2020 COMPARISON: 09/25/2020 HISTORY: Difficulty breathing, respiratory distress FINDINGS: This study is performed at 4:01 AM. Stable midline sternotomy wires, mediastinal clips, and transvenous AICD. No pneumothorax is evident. There is extensive severe interstitial and alveolar opacity, right greater than left, worsened when compared to the prior examination. IMPRESSION: Extensive worsened interstitial and alveolar opacity bilaterally.
[2020-09-27] MEDS: Carvedilol 3.125 MG TAB PO SCH (08:00)
--- NOTE | 2020-09-27 08:02 | RAD ---
Portable frontal chest radiograph: 09/27/2020 COMPARISON: 09/27/2020 HISTORY: Endotracheal tube placement FINDINGS: This study is performed at 4:30 AM. Extensive nonspecific severe interstitial and alveolar opacity noted, right greater than left, not significantly changed. There has been interval placement of an endotracheal tube in proper position. IMPRESSION: Interval intubation-otherwise unchanged.
--- NOTE | 2020-09-27 08:11 | RAD ---
XR Chest 1 View Portable History: Line placement Comparison: Radiograph same day Findings: Endotracheal tube tip above the erik 3.2 cm. Enteric tube tip gastric fundus. Multifocal airspace opacities are similar. Large effusions. Patient is rotated to the left. Right subclavian central venous catheter tip at the distal right atrium. Impression: 1. Enteric section tube tip at the gastric fundus. 2. Right subclavian central venous catheter tip projects over the distal right atrium.
[2020-09-27] MEDS: Morphine 2 MG/ML VIAL SLOW IVP PRN ×2 (08:40→14:53)
[2020-09-27] MEDS: Atorvastatin Calcium 40 MG TAB PO SCH (09:00)
[2020-09-27 09:14] LABS: Base Excess (BEa) -4.6 mEq/L (-2.0 to +3.0); Carboxyhemoglobin (COHb) 1.4 gm% (0.0-3.0); Hemoglobin (Hb) 15.4 g/dL (14.0-18.0); O2 Tension (PaO2), arterial 80.2 mmHg (> 80.0); Potassium - ABG Lab 6.18 mmol/L (3.70-5.30)
[2020-09-27 09:15] LABS: pH, Arterial 7.13 (7.35-7.45)
[2020-09-27 09:16] LABS: ALV-art Gradient 529.425 mmHg (0-20); CO2 Tension 82.7 mmHg (35.0-45.0); Puncture Site LFA
[2020-09-27] MEDS ORDERED: Norepinephrine 8 MG in Dextrose 5% in Water 242 ML IVPB PRN (09:30)
[2020-09-27] MEDS ORDERED: Digoxin 0.5 MG/2 ML AMP SLOW IVP SCH (09:45)
--- NOTE | 2020-09-27 09:53 | PRG ---
DATE OF SERVICE: 09/27/2020 SUBJECTIVE: Mr. Espinosa has continued to worsen. The patient required emergency intubation for respiratory failure. The patient also became hypotensive. The patient developed atrial fibrillation, which caused what looked like further deterioration in his status. OBJECTIVE: VITAL SIGNS: Current blood pressure is 96 systolic, pulse is 110, it is irregular. LUNGS: No wheezing. CARDIAC: Irregularly irregular. ABDOMEN: Soft, nontender. EXTREMITIES: Cool, but not cold. LABORATORY DATA: His blood gas; pH 7.13, pCO2 is 82.7. Chest x-ray shows diffuse interstitial infiltrates. ASSESSMENT: 1. Diffuse interstitial infiltrates on chest x-ray. 2. New onset of atrial fibrillation, potentially related to being off the amiodarone, which we had to stop as it was thought that this was likely to be the cause of his pulmonary insufficiency. PLAN: 1. We will give intravenous diuretics. 2. Code status is being discussed with the family. Prognosis looks very poor in this unfortunate gentleman. Job ID: [id number]
[2020-09-27 10:34] LABS: CO2 Tension 115.2 mmHg (35.0-45.0); O2 Tension (PaO2), arterial 57.2 mmHg (> 80.0); pH, Arterial 7.13 (7.35-7.45)
[2020-09-27 13:21] VITALS: BP 101/71
[2020-09-27 13:24] VITALS: TEMP 98.9
--- NOTE | 2020-09-27 15:35 | PDOC.HOSPP ---
- Subjective Encounter Date: 09/27/20 Encounter Time: 15:33 Subjective: This is an unfortunate 70-year-old who followed here in the hospital in the last a few days. He was admitted with respiratory failure that was felt to be secondary to pneumonia and may be congestive heart failure. He did rule out for COVID-19 virus. He has received multiple antibiotic treatments. He has been diuresed. He remains on high flow nasal cannula. Unfortunately overnight it appears that he deteriorated and ended up being intubated and transitioned to ICU. I met with the at the bedside today. Multiple other family members are coming to visit. The prognosis here appears to be poor in this unfortunate gentleman. - Objective Vital Signs & Weight: Vital Signs (12 hours) Temp Pulse Pulse Pulse Pulse Resp Resp 09/27/20 14:00 30 H 09/27/20 13:20 97 09/27/20 12:00 98.9 F 30 H 09/27/20 10:55 93 09/27/20 10:00 30 H 09/27/20 08:00 98.6 F 30 H 09/27/20 07:48 87 09/27/20 05:42 30 H 09/27/20 05:41 112 H 09/27/20 04:42 09/27/20 03:50 136 H 143 H 148 H 38 H 09/27/20 03:44 140 H 32 H 09/27/20 03:38 35 H Resp Resp BP BP BP BP BP 09/27/20 14:00 09/27/20 13:20 101/71 09/27/20 12:00 09/27/20 10:55 118/81 09/27/20 10:00 09/27/20 08:00 09/27/20 07:48 121/68 09/27/20 05:42 09/27/20 05:41 124/88 09/27/20 04:42 09/27/20 03:50 36 H 40 H 192/117 H 181/100 H 176/99 H 09/27/20 03:44 206/100 H 09/27/20 03:38 Pulse Ox Pulse Ox Pulse Ox Pulse Ox 09/27/20 14:00 09/27/20 13:20 09/27/20 12:00 09/27/20 10:55 09/27/20 10:00 09/27/20 08:00 95 09/27/20 07:48 09/27/20 05:42 09/27/20 05:41 09/27/20 04:42 80 L 09/27/20 03:50 72 L 84 L 85 L 09/27/20 03:44 82 L 09/27/20 03:38 78 L Weight Admit Weight 260 lb 7 oz Weight 252 lb 9.6 oz Most Recent Monitor Data Heart Rate from ECG 106 NIBP 130/73 NIBP BP-Mean 92 Respiration from ECG 31 SpO2 96 I&O: 09/26/20 09/27/20 09/28/20 06:59 06:59 06:59 Intake Total 600 1940 Output Total 2600 1870 175 Balance -1999 70 -175 Result Diagrams: 09/26/20 03:56 09/27/20 04:28 Additional Labs: Accuchecks 09/27/20 05:05 POC Glucose 298 H Radiology Reviewed by me: Yes EKG Reviewed by me: Yes Hospitalist ROS - Review of Systems ROS unobtainable: due to endotracheal tube Constitutional: reports: weakness, malaise Other: He is intubated and mechanically ventilated. He is in the prone position. - Exam General Appearance: ill appearing General - other findings: He is intubated. ENT - other findings: He is intubated. Psychiatric: somnolent, lethargic Hosp A/P (1) Acute and chronic respiratory failure with hypoxia Code(s): J96.21 - ACUTE AND CHRONIC RESPIRATORY FAILURE WITH HYPOXIA Status: Acute (2) Acute on chronic congestive heart failure Code(s): I50.9 - HEART FAILURE, UNSPECIFIED Status: Acute Qualifiers: Heart failure type: combined systolic and diastolic Qualified Code(s): I50.43 - Acute on chronic combined systolic (congestive) and diastolic (congestive) heart failure (3) CAD (coronary artery disease) Code(s): I25.10 - ATHSCL HEART DISEASE OF [place] CORONARY ARTERY W/O ANG PCTRS Status: Chronic Qualifiers: Coronary Disease-Associated Artery/Lesion type: bypass graft [place] vs. transplanted heart: [place] heart Associated angina: without angina Qualified Code(s): I25.810 - Atherosclerosis of coronary artery bypass graft(s) without angina pectoris (4) Chronic atrial fibrillation Code(s): I48.20 - CHRONIC ATRIAL FIBRILLATION, UNSPECIFIED Status: Chronic (5) Amiodarone pulmonary toxicity Code(s): J98.4 - OTHER DISORDERS OF LUNG; T46.2X5A - ADVERSE EFFECT OF OTHER ANTIDYSRHYTHMIC DRUGS, INIT ENCNTR Status: Suspected - Plan social group worker, respiratory therapy, incentive spirometry #1. Acute respiratory failure Likely combination of factors including CHF and amiodarone toxicity. Continue high flow nasal cannula. 2. Congestive heart failure. Continue home medications. 3. Chronic atrial fibrillation. He is appropriately on medications. 4. Coronary artery disease. Continue routine home medicines. 5. Amiodarone pulmonary toxicity.
--- NOTE | 2020-09-27 18:47 | EKG ---
Test Reason : STAT Blood Pressure : / mmHG Vent. Rate : 141 BPM Atrial Rate : 144 BPM P-R Int : 136 ms QRS Dur : 124 ms QT Int : 318 ms P-R-T Axes : 000 086 -63 degrees QTc Int : 487 ms Sinus tachycardia with occasional , and consecutive Premature ventricular complexes Cannot exclude Inferior infarct , age undetermined Cannot rule out Anterior infarct , age undetermined Abnormal ECG When compared with ECG of 15-SEP-2020 17:29, Sinus rhythm has replaced Electronic ventricular pacemaker Vent. rate has increased BY 61 BPM Confirmed by MANNY DUNBAR, SDebra ([id number]) on 09/27/2020 6:47:16 PM Referred By: LAITH Confirmed By:DR. Xiomara BRYANT MD
--- NOTE | 2020-09-28 15:39 | PRG ---
DATE OF SERVICE: 09/27/2020 The patient sustained a cardiac arrest while in prone position on mechanical ventilation. He was turned over and CPR ensued. The patient was given bag-mask ventilation, closed chest compressions, and sequential epinephrine. He returned a rhythm within 15 minutes. The exact time of the code was between 9 and 9:15 a.m. on 09/27. I met with the patient's afterward. She said that he had been doing poorly lately and she wanted him to be DNR. The patient had care withdrawn later in the morning and . Job ID: [id number]
--- NOTE | 2020-09-28 17:39 | PDOC.DS.DS ---
Provider - Provider Date of Admission: 09/15/20 20:53 Date of Discharge: 09/27/20 Admitting Provider: Victoriano Machado MD Consultations: Cardiology, Pulmonary Primary Care Physician: [facility] Course - Hospital Course Hospital Course: This is an unfortunate 70-year-old gentleman with multiple underlying cardiac and pulmonary history including COPD and coronary disease who was admitted to the hospital with worsening shortness of breath. He was initially diagnosed with pneumonia and congestive heart failure and was placed on IV antibiotic and diuresis. He was seen by multiple services including both cardiology and pulmo nology. In addition he has ischemic cardiomyopathy and has an AICD in place. He has had dysrhythmias in the past and he was on long-term amiodarone. It was felt that His respiratory symptoms were also related to amiodarone toxicity. Unfortunately Mr. Espinosa remained dependent on a high flow nasal cannula and any attempt to decrease it resulted in worsening of his respiratory symptoms. He deteriorated very quickly and was transferred to the ICU where he was intubated and mechanically ventilated. He was in the prone position when he suffered a cardiopulmonary arrest and ACLS protocol were initiated. He achieved a return of spontaneous circulation but family elected to withdraw care and he was terminally extubated. He later on on the above date. Final cause of the followin. Ischemic cardiomyopathy. 2. Coronary artery disease. 3. Amiodarone toxicity. Resuscitation Status: 09/27/20 11:41 Resuscitation Status Routine Resuscitation Status: DNAR: NO Resuscitation Discussed with: pt. and children - Labs Lab Results: 09/26/20 03:56 09/27/20 04:28 Abnormal Lab Results - Last 48 hrs 09/27/20 04:00: Bicarbonate Actual 31.0 H, ABG pH 7.30 L, ABG pCO2 64.1 H*, ABG pO2 30.5 L*, ABG O2 Sat (Measured) 54.3 L*, ABG O2 Content 11.7 L, ABG Oxyhemoglobin 53.4 L, ABG Deoxyhemoglobin 44.9 H, A-a O2 Gradient 602.375 H, Sodium 134 L, Chloride 95 L 09/27/20 04:28: Sodium 135 L, Chloride 97 L, Potassium 5.3 H 09/27/20 04:29: Troponin I 0.031 H 09/27/20 04:29: Lactic Acid 2.6 H 09/27/20 04:40: Bicarbonate Actual 37.1 H, ABG pH 7.13 L*, ABG pCO2 115.2 H*, ABG pO2 57.2 L*, ABG O2 Sat (Measured) 81.6 L*, ABG O2 Content 17.2 L, ABG Base Excess 3.3 H, ABG Oxyhemoglobin 80.5 L, ABG Deoxyhemoglobin 18.1 H, Sodium 134 L, Chloride 94 L 09/27/20 09:12: ABG pH 7.13 L*, ABG pCO2 82.7 H*, ABG pO2 80.2 H, ABG O2 Sat (Measured) 93.2 L, ABG Base Excess -4.6 L, ABG Oxyhemoglobin 91.6 L, ABG Deoxyhemoglobin 6.7 H, A-a O2 Gradient 529.425 H, Chloride 97 L, Potassium 6.18 H Microbiology - Entire Visit 09/15/20 17:35 Venous blood - Right Arm Blood Culture - Final NO GROWTH IN 5 DAYS 09/15/20 17:56 Venous blood - Right Hand Blood Culture - Final NO GROWTH IN 5 DAYS - Physical Exam Vitals: Weight Admit Weight 260 lb 7 oz Weight 252 lb 9.6 oz Most Recent Monitor Data Heart Rate from ECG 106 NIBP 130/73 NIBP BP-Mean 92 Respiration from ECG 31 SpO2 96 Physical Exam: The patient was seen and examined on the day of discharge. Problem - Problem (1) Acute and chronic respiratory failure with hypoxia Code(s): J96.21 - ACUTE AND CHRONIC RESPIRATORY FAILURE WITH HYPOXIA Status: Acute (2) Acute on chronic congestive heart failure Code(s): I50.9 - HEART FAILURE, UNSPECIFIED Status: Acute Qualifiers: Heart failure type: combined systolic and diastolic Qualified Code(s): I50.43 - Acute on chronic combined systolic (congestive) and diastolic (congestive) heart failure (3) CAD (coronary artery disease) Code(s): I25.10 - ATHSCL HEART DISEASE OF [place] CORONARY ARTERY W/O ANG PCTRS Status: Chronic Qualifiers: Coronary Disease-Associated Artery/Lesion type: bypass graft [place] vs. transplanted heart: [place] heart Associated angina: without angina Qualified Code(s): I25.810 - Atherosclerosis of coronary artery bypass graft(s) without angina pectoris (4) Chronic atrial fibrillation Code(s): I48.20 - CHRONIC ATRIAL FIBRILLATION, UNSPECIFIED Status: Chronic (5) Amiodarone pulmonary toxicity Code(s): J98.4 - OTHER DISORDERS OF LUNG; T46.2X5A - ADVERSE EFFECT OF OTHER ANTIDYSRHYTHMIC DRUGS, INIT ENCNTR Status: Suspected Plan - Discharge Medications Home Medications: Medication Instructions Recorded Confirmed Type Albuterol Sulfate HFA (OR) 1 puff INH Q4HR PRN 09/16/20 09/16/20 History [Proventil Hfa (or)] Amiodarone [Cordarone] 200 mg PO DAILY 09/16/20 09/16/20 History Aspirin [Aspirin EC] 81 mg PO DAILY 09/16/20 09/16/20 History Atorvastatin Calcium [Lipitor] 40 mg PO DAILY 09/16/20 09/16/20 History Benzonatate [Tessalon] 100 mg PO TID PRN 09/16/20 09/16/20 History Budesonide/Formoterol Fumarate 10.2 gm IH BID 09/16/20 09/16/20 History [Budesonide-Formoterol 160-4.5] Carvedilol [Coreg] 6.25 mg PO BID 09/16/20 09/16/20 History Furosemide [Lasix] 20 mg PO DAILY 09/16/20 09/16/20 History HYDROcodone/Acetaminophen [[place] 1 - 2 each PO Q6HR PRN 09/16/20 09/16/20 History 10-325 Tablet] Omeprazole 20 mg PO DAILY 09/16/20 09/16/20 History Potassium Chloride [K-Dur] 20 meq PO DAILY 09/16/20 09/16/20 History Rivaroxaban [Xarelto] 20 mg PO QPM 09/16/20 09/16/20 History Sacubitril/Valsartan 49/51 0.5 tab PO BID 09/16/20 09/16/20 History [Entresto 49 mg-51 mg Tablet] Sertraline HCl [Zoloft] 100 mg PO DAILY 09/16/20 09/16/20 History Zolpidem Tartrate [Ambien] 10 mg PO HS 09/16/20 09/16/20 History tiZANidine HCl [Zanaflex] 4 mg PO TID 09/16/20 09/16/20 History Allergies: cephalexin [From Keflex] Allergy (Verified 09/16/20 03:35) - Follow up Plan Referrals: [facility] [Primary Care Provider] - Disposition: HOSPICE MEDICAL FACILITY Quality - Care Measures CORE MEASURES:: N/A
== END 2020-09-27 14:58 | disposition hospice, inpatient (51) | DRG 208 ==
LOC: ERS 16:25 → ERHOLD 20:53 → IMCU/EMU 09-16 03:31 → 2NO 09-23 13:44 → CCU 09-27 04:03
PROVIDERS: ADMIT Internal Medicine; ATTEND Hospitalist
PROC: 4B02XTZ Measurement of Cardiac Defibrillator, External Approach (ICD-10-PCS; 2020-09-17)
PROC: 0BH17EZ Insertion of Endotracheal Airway into Trachea, Via Natural or Artificial Opening (ICD-10-PCS; principal; 2020-09-27)
PROC: 5A12012 Performance of Cardiac Output, Single, Manual (ICD-10-PCS; 2020-09-27)
PROC: 3E033XZ Introduction of Vasopressor into Peripheral Vein, Percutaneous Approach (ICD-10-PCS; 2020-09-27)
PROC: 5A1935Z Respiratory Ventilation, Less than 24 Consecutive Hours (ICD-10-PCS; 2020-09-27)
PROC: 02H633Z Insertion of Infusion Device into Right Atrium, Percutaneous Approach (ICD-10-PCS; 2020-09-27)
DX: J18.9 Pneumonia, unspecified organism (principal); J96.21 Acute and chronic respiratory failure with hypoxia; I46.9 Cardiac arrest, cause unspecified; I50.23 Acute on chronic systolic (congestive) heart failure; J44.0 Chronic obstructive pulmonary disease with (acute) lower respiratory infection; J44.1 Chronic obstructive pulmonary disease with (acute) exacerbation; I48.20 Chronic atrial fibrillation, unspecified; I25.810 Atherosclerosis of coronary artery bypass graft(s) without angina pectoris; I11.0 Hypertensive heart disease with heart failure; E78.00 Pure hypercholesterolemia, unspecified; F43.10 Post-traumatic stress disorder, unspecified; I73.9 Peripheral vascular disease, unspecified; Z20.828 Contact with and (suspected) exposure to other viral communicable diseases; I25.5 Ischemic cardiomyopathy; T46.2X5A Adverse effect of other antidysrhythmic drugs, initial encounter; Z66 Do not resuscitate; E87.5 Hyperkalemia; Z79.891 Long term (current) use of opiate analgesic; Z23 Encounter for immunization; Z88.8 Allergy status to other drugs, medicaments and biological substances; Z95.1 Presence of aortocoronary bypass graft; Z90.49 Acquired absence of other specified parts of digestive tract; Z90.89 Acquired absence of other organs; Z79.899 Other long term (current) drug therapy; Z88.1 Allergy status to other antibiotic agents; Z79.82 Long term (current) use of aspirin; Z79.01 Long term (current) use of anticoagulants; Z79.2 Long term (current) use of antibiotics; Z95.810 Presence of automatic (implantable) cardiac defibrillator; Z86.718 Personal history of other venous thrombosis and embolism; Z87.891 Personal history of nicotine dependence; I95.9 Hypotension, unspecified; Z82.49 Family history of ischemic heart disease and other diseases of the circulatory system; Y92.230 Patient room in hospital as the place of occurrence of the external cause
CPT/HCPCS: 36415; 36416; 36600; 71045; 71275; 80048; 80053; 82330; 82550; 82803; 82805; 83605; 83735; 83880; 84100; 84484; 85025; 86769; 87040; 87635; 93005; 93010; 93306; 94002; 94640; 96365; 96366; 96367; 96368; 99292; J1160; J1650; J1940; J1956; J2020; J2060; J2185; J2248; J2270; J2920; J3475; J3490; J7030; J7512; J7611; J7620; Q9967; U0003

== ENCOUNTER → 2020-09-27 15:22 | Inpatient (IN) | payer OTHER ==
[~2020-09-27 15:22] MED LIST changes: +Acetaminophen 650 MG Suppository PR PRN; -Iopamidol-370 76% 500 ML 1 ML ONE; +Lorazepam 2 MG/ML VIAL SLOW IVP PRN; +Lorazepam 2 MG/ML VIAL SLOW IVP SCH; +Morphine 2 MG/ML VIAL SLOW IVP PRN; +Morphine 2 MG/ML VIAL SLOW IVP SCH; +Ondansetron PF 4 MG/2 ML Vial IVP PRN; +Scopolamine 1.5 mg/72 hour Patch TOP PRN; +diphenhydrAMINE 25 MG CAP PO PRN; +diphenhydrAMINE 50 MG/ML VIAL IVP PRN
--- NOTE | 2020-09-28 13:42 | DIS ---
DATE OF ADMISSION: 09/27/2020 DATE OF DISCHARGE: 09/27/2020 A 70-year-old gentleman admitted to hospice for failed treatment for COPD and coronary artery disease. The patient immediately after being on hospice. Time of , please see nursing note. Disposition to home. No complications were reported. The patient peacefully. Job ID: [id number]
== END | disposition expired | DRG 951 ==
LOC: CCU 15:22
PROVIDERS: ADMIT Internal Medicine Nephrology; ATTEND Internal Medicine Nephrology
DX: Z51.5 Encounter for palliative care (principal); Z66 Do not resuscitate; J43.9 Emphysema, unspecified; J96.21 Acute and chronic respiratory failure with hypoxia; J18.9 Pneumonia, unspecified organism; I25.10 Atherosclerotic heart disease of native coronary artery without angina pectoris; I50.9 Heart failure, unspecified; I11.0 Hypertensive heart disease with heart failure; E78.5 Hyperlipidemia, unspecified; I48.91 Unspecified atrial fibrillation; F43.10 Post-traumatic stress disorder, unspecified; Z79.82 Long term (current) use of aspirin; Z95.810 Presence of automatic (implantable) cardiac defibrillator; Z95.1 Presence of aortocoronary bypass graft; Z88.8 Allergy status to other drugs, medicaments and biological substances; Z79.899 Other long term (current) drug therapy; Z79.01 Long term (current) use of anticoagulants